=== PATIENT | male | born 2000 | race Caucasian/White ===

== ENCOUNTER 2020-10-31 00:19 | Inpatient (IN) | payer OTHER, MEDICAID, SELFPAY ==
[2020-10-31] VITALS (14 sets, daily range): BP systolic 99–140; BP diastolic 61–93; PULSE 18–82; RESP 14–24; TEMP 36.6–37.2; O2SAT 99; BMI 19.1
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
--- NOTE | 2020-10-31 02:41 | PC.NURSE ---
late entry: : IM meds pulled earlier by Arslan ANGELES, given to this keno writer/runner for restraint purposes, then meds entrusted to flori angeles who is 1;1 at bedside with patient.
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
[2020-10-31] MEDS: LORazepam 2 MG/ML VIAL IM (03:50)
[2020-10-31] MEDS: Haloperidol Lactate 5 MG/ML VIAL IM (03:50)
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
--- NOTE | 2020-10-31 06:53 | PC.NURSE ---
pt agitated and restrained as ordered at 0058 pt denies si or hi at this time but does reports hearing voices demon to hurt himself but denies si.
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
--- NOTE | 2020-10-31 09:31 | PC.NURSE ---
PT CALM,COOPERATIVE. BHN SPEAKING WITH PT AT THIS TIME
--- NOTE | 2020-10-31 10:58 | PC.NURSE ---
COVID swab completed. Patient cooperative and calm at this time.
[2020-10-31 13:21] LABS: Influenza A PCR NEGATIVE (Negative); Influenza B PCR NEGATIVE (Negative); Resp Syncy Virus RNA Qual PCR NEGATIVE (Negative); SARS COV2 PCR INHOUSE NEGATIVE (Negative)
[2020-10-31 16:06] LABS: MANUAL DIFF FLAG NO
[2020-10-31 16:07] LABS: Basophils Percent Auto 0.3 % (0-2); Eosinophils Absolute Auto 0.8 X10*3/uL (0.0-0.4); Eosinophils Percent Auto 5.3 % (0-4); Hematocrit 43.1 % (42-52); Imm Gran Abs Auto 0.05 X10*3/uL (0.00-0.03); Imm Gran Pct Auto 0.3 % (0.0-0.4); Lymphocytes Absolute Auto 2.2 X10*3/uL (1.2-4.9); Lymphocytes Percent Auto 14.6 % (20-40); Mean Corpuscular HGB Conc 34.8 g/dl (31.0-36.0); Mean Corpuscular Hemoglobin 30.5 pg (27.0-33.0); Mean Corpuscular Volume 87.6 fL (80-98); Mean Platelet Volume 10.9 fL (9.4-12.4); Monocytes Absolute Auto 0.8 X10*3/uL (0.1-1.2); Neutrophils Absolute Auto 11.2 X10*3/uL (2.0-8.3); Neutrophils Percent Auto 74.5 % (45-73); Platelet Count 307 X10*3/uL (160-400); Red Blood Count 4.92 X10*6/uL (4.60-5.80); Red Cell Distribution Width 12.4 % (11.0-16.0)
[2020-10-31 16:12] LABS: Glucose Urine UA NEG (NEG); Leukocyte Esterase Urine NEG (NEG); Nitrite Urine NEG (NEG); Specific Gravity - Urine >= 1.030 (1.005-1.025); UACC Culture Trigger NO; Urine Blood NEG (NEG); Urine Ketones 40 MG/DL (NEG); Urine Protein 1+ MG/DL (NEG-TRACE)
[2020-10-31 16:13] LABS: Appearance Urine HAZY; Color Urine YELLOW
[2020-10-31 16:20] LABS: Mucus Urine 4+ /LPF; RBC Urine 0 /HPF (0); Sperm Urine NOTED; Squamous Epithelial Cell Urine 1+ /LPF; WBC Urine 0 /HPF (0-4)
[2020-10-31] MEDS: risperiDONE 2 MG TABLET PO ×2 (16:33→20:26)
[2020-10-31 16:38] LABS: Ethanol < 10 mg/dL
[2020-10-31 16:41] LABS: Alanine Aminotransferase 20 U/L (0-40); Albumin Level 4.6 g/dL (3.5-5.0); Alkaline Phosphatase 68 U/L (39-117); Anion Gap 15 (12-20); Aspartate Amino Transferase 31 U/L (5-37); Bilirubin Direct 0.7 mg/dL (0.0-0.5); Bilirubin Total 2.1 mg/dL (0.0-1.0); Blood Urea Nitrogen 17 mg/dL (9-16); Calcium 9.8 mg/dL (8.4-10.2); Carbon Dioxide 25 mmol/L (22-29); Chloride 102 mmol/L (96-108); Creatinine Clr Calc Pharmacy 82.8; Estimated Glomerular Filt Rate > 60; Glucose Random 108 mg/dL (60-115); Magnesium 2.3 mg/dL (1.6-2.6); Potassium 3.7 mmol/L (3.3-5.1); Sodium 138 mmol/L (135-145); Total Protein 7.6 g/dL (6.5-8.0)
[2020-10-31 16:50] LABS: Amphetamine Screen Urine Not Detected (Not Detect); Barbiturates, Urine Not Detected (Not Detect); Benzodiazepines Screen Urine Not Detected (Not Detect); Cannabinoid Screen Urine POSITIVE (Not Detect); Cocaine Screen Urine Not Detected (Not Detect); Opiate Screen Urine Not Detected (Not Detect); Phencyclidine Screen Urine Not Detected (Not Detect)
--- NOTE | 2020-10-31 20:24 | MHC.MBSS ---
Patient refusing food. Patient did not eat breakfast, lunch or dinner.
[2020-10-31] MEDS: LORazepam 1 MG TABLET 2 MG PO (21:58)
[2020-11-01 06:00] VITALS: RESP 16
[2020-11-01] MEDS: risperiDONE 2 MG TABLET PO ×2 (08:29→22:10)
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
[2020-11-01 15:16] VITALS: BP 123/60; PULSE 80; RESP 15
[2020-11-01] MEDS: LORazepam 1 MG TABLET 2 MG PO (20:39)
[2020-11-01] MEDS: HaloperidoL 5 MG TABLET PO (20:39)
[2020-11-01] MEDS: diphenhydrAMINE HCL 25 MG TABLET 50 MG PO (20:39)
[2020-11-02 06:00] VITALS: RESP 16
[2020-11-02 08:00] VITALS: BP 115/77; PULSE 87
[2020-11-02] MEDS: risperiDONE 2 MG TABLET PO ×2 (08:52→20:54)
--- NOTE | 2020-11-02 12:40 | PC.NURSE ---
pt asking to be reevaluated, called [facility] and care team.
[2020-11-02] MEDS: LORazepam 1 MG TABLET 2 MG PO (14:47)
[2020-11-02] MEDS: diphenhydrAMINE HCL 25 MG TABLET 50 MG PO (20:57)
[2020-11-02 20:58] VITALS: BP 126/74; PULSE 67; RESP 16; TEMP 36.6; O2SAT 98
[2020-11-03 06:24] VITALS: RESP 18; O2SAT 99
[2020-11-03 07:36] VITALS: BP 104/56; PULSE 72; RESP 16; TEMP 36.7; O2SAT 98
[2020-11-03] MEDS: risperiDONE 2 MG TABLET PO ×2 (08:28→20:58)
[2020-11-03 14:41] VITALS: BP 111/64; PULSE 75; RESP 16; TEMP 36.6; O2SAT 98
--- NOTE | 2020-11-03 15:26 | PC.NURSE ---
Pt resting in bed quietly. Staff at bedside for obs and family at bedside as well. Pt is calm and cooperative.
[2020-11-03] MEDS: LORazepam 1 MG TABLET 2 MG PO (20:30)
[2020-11-03] MEDS: HaloperidoL 5 MG TABLET PO (20:30)
[2020-11-03] MEDS: diphenhydrAMINE HCL 25 MG TABLET 50 MG PO (20:31)
[2020-11-04 06:06] VITALS: BP 108/61; PULSE 77; RESP 16; TEMP 37.1; O2SAT 99
[2020-11-04] MEDS: risperiDONE 2 MG TABLET PO ×2 (08:42→20:10)
[2020-11-04 08:45] VITALS: BP 100/57; PULSE 76; RESP 16; TEMP 36.7; O2SAT 97
[2020-11-04 15:29] VITALS: BP 103/48; PULSE 70; RESP 17; O2SAT 98
[2020-11-04 16:41] VITALS: BP 119/73; PULSE 70; TEMP 36.3
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
[2020-11-04] MEDS: diphenhydrAMINE HCL 25 MG TABLET 50 MG PO (20:09)
[2020-11-04] MEDS: HaloperidoL 5 MG TABLET PO (20:09)
[2020-11-04] MEDS: LORazepam 1 MG TABLET 2 MG PO (20:09)
[2020-11-04] MEDS: traZODone HCL 50 MG TABLET PO (20:10)
[2020-11-05 05:51] VITALS: BP 115/59; PULSE 88; RESP 18; TEMP 35.4
[2020-11-05 08:22] LABS: MANUAL DIFF FLAG NO
[2020-11-05] MEDS: risperiDONE 2 MG TABLET PO ×2 (08:30→20:17)
[2020-11-05 08:40] LABS: Basophils Absolute Auto 0.1 X10*3/uL (0.0-0.2); Basophils Percent Auto 0.6 % (0-2); Eosinophils Absolute Auto 1.6 X10*3/uL (0.0-0.4); Eosinophils Percent Auto 16.7 % (0-4); Hematocrit 41.4 % (42-52); Hemoglobin 14.4 g/dl (14.0-18.0); Imm Gran Abs Auto 0.03 X10*3/uL (0.00-0.03); Imm Gran Pct Auto 0.3 % (0.0-0.4); Lymphocytes Absolute Auto 2.6 X10*3/uL (1.2-4.9); Lymphocytes Percent Auto 27.1 % (20-40); Mean Corpuscular HGB Conc 34.8 g/dl (31.0-36.0); Mean Corpuscular Hemoglobin 30.7 pg (27.0-33.0); Mean Corpuscular Volume 88.3 fL (80-98); Mean Platelet Volume 11.1 fL (9.4-12.4); Monocytes Absolute Auto 0.6 X10*3/uL (0.1-1.2); Monocytes Percent Auto 6.5 % (2-11); Neutrophils Absolute Auto 4.7 X10*3/uL (2.0-8.3); Neutrophils Percent Auto 48.8 % (45-73); Platelet Count 295 X10*3/uL (160-400); Red Blood Count 4.69 X10*6/uL (4.60-5.80); White Blood Count 9.7 X10*3/uL (4.8-10.8)
[2020-11-05 09:03] LABS: Estimated Average Glucose 108 mg/dL; Hemoglobin A1c % 5.4 %
[2020-11-05 09:09] LABS: Alanine Aminotransferase 13 U/L (0-40); Albumin Level 4.5 g/dL (3.5-5.0); Alkaline Phosphatase 66 U/L (39-117); Aspartate Amino Transferase 15 U/L (5-37); Bilirubin Direct 0.2 mg/dL (0.0-0.5); Bilirubin Total 0.6 mg/dL (0.0-1.0); Cholesterol 145 mg/dL; HDL Cholesterol 45 mg/dL; LDL Cholesterol Calculated 89 mg/dl; Total Protein 7.2 g/dL (6.5-8.0); Triglycerides 59 mg/dL
[2020-11-05 17:20] VITALS: BP 116/72; PULSE 87; RESP 16; TEMP 36.9; O2SAT 97
[2020-11-05] MEDS: diphenhydrAMINE HCL 25 MG TABLET 50 MG PO (20:17)
[2020-11-05] MEDS: HaloperidoL 5 MG TABLET PO (20:17)
[2020-11-05] MEDS: traZODone HCL 50 MG TABLET PO (21:50)
[2020-11-06 06:00] VITALS: BP 112/75; PULSE 65; RESP 16; TEMP 36.4; O2SAT 98
[2020-11-06] MEDS: Ibuprofen 600 MG TABLET PO ×2 (06:37→19:59)
[2020-11-06 07:00] VITALS: BMI 19.4
[2020-11-06] MEDS: risperiDONE 2 MG TABLET PO ×2 (08:57→19:59)
[2020-11-06] MEDS: diphenhydrAMINE HCL 25 MG TABLET 50 MG PO (10:33)
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
[2020-11-06] MEDS: Benztropine Mesylate 2 MG/2 ML VIAL 1 MG IM (11:05)
[2020-11-06] MEDS: Ketorolac Tromethamine 30 MG/ML VIAL IM (11:37)
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
[2020-11-06 12:08] LABS: Glucose Urine UA NEG (NEG); Leukocyte Esterase Urine NEG (NEG); Nitrite Urine NEG (NEG); Urine Blood NEG (NEG); Urine Ketones NEG (NEG); Urine Protein NEG (NEG-TRACE)
[2020-11-06 12:09] LABS: Appearance Urine CLEAR; Color Urine YELLOW
[2020-11-06 12:14] LABS: RBC Urine 0 /HPF (0); Squamous Epithelial Cell Urine TRACE /LPF; WBC Urine 0-2 /HPF (0-4)
--- NOTE | 2020-11-06 14:05 | P.CONIM_ITS ---
History of Present Illness Data of Consult Service Date: 11/06/20 <Saloni Roche NP - Last Filed: 11/06/20 14:18> Requesting physician: Alexandre Novak <Saloni Roche NP - Last Filed: 11/06/20 14:18> Primary Care Provider: Unknown Physician <Saloni Roche NP - Last Filed: 11/06/20 14:18> HPI Reason for consult: medical consultation <Saloni Roche NP - Last Filed: 11/06/20 14:18> 20-year-old man admitted to for behavioral health. He had complaints of back pain and there was concern for kidney stones. Patient denied any fever, chills, nausea, vomiting, diarrhea, dysuria. His vital signs are stable he is not noted to have any fever, last labs did not show any leukocytosis. During the interview patient reported more mid back pain, stated that I works out alot . Patient has been treated with ibuprofen and received a dose of Toradol today with good effect. <Saloni Roche NP - Last Filed: 11/06/20 14:18> Review of Systems Review of Systems: Denies any recent fever chills or decrease in appetite respiratory denies any shortness of breath coverage production cardiovascular Denies chest pain gastrointestinal denies any dysphagia abdominal pain nausea vomiting or diarrhea genitourinary denies any dysuria frequency or hematuria musculoskeletal see HPI neuropsych denies any weakness or seizures all other systems reviewed are negative <Saloni Roche NP - Last Filed: 11/06/20 14:18> [facility] Medical History: Medical History Schizophrenia <Saloni Roche NP - Last Filed: 11/06/20 14:18> Pertinent family history: no cardiac disease <Saloni Roche NP - Last Filed: 11/06/20 14:18> Social History: Social History Household Members: Family Housing: House Do you presently have visiting nurse or other home services: No Alcohol intake: never Patient Tobacco Use Status: Never used Tobacco Tobacco use type: Cigarette e-Cigarette/Vaping Use: Former Use Second Hand Smoke Exposure: No Use of substances other than those prescribed or required for medical reasons: No Substance Use Type: Marijuana Advance Directives: Yes Advance Directives Information Provided: Yes Advance Directives on File: No service: Yes ([employer]) Sexual orientation: Was not discussed and is unknown <Saloni Roche NP - Last Filed: 11/06/20 14:18> Meds Allergies/Adverse reactions: Allergies Allergy/AdvReac Type Severity Reaction Status Date / Time bee pollen [bee stings] Allergy Difficulty Verified 11/15/20 10:14 Breathing <Saloni Roche NP - Last Filed: 11/06/20 14:18> Active Medications: Current Medications Generic Name Dose Route Start Last Admin Trade Name Freq PRN Reason Stop Dose Admin Al Hydroxide/Mg Hydroxide 30 ml 11/04/20 15:39 Magnesium Hydrox/Alum Hydrox 30 Ml Oral.Susp PO Q6H PRN Heartburn/Nausea Diphenhydramine HCl 50 mg 11/04/20 15:39 11/06/20 10:33 Diphenhydramine Hcl 25 Mg Tablet PO 50 mg Q4H PRN Administration agitation Haloperidol 5 mg 11/04/20 15:39 11/05/20 20:17 Haloperidol 5 Mg Tablet PO 5 mg Q4H PRN Administration agitation Lorazepam 2 mg 11/04/20 15:39 11/04/20 20:09 Lorazepam 1 Mg Tablet PO 2 mg Q4H PRN Administration agitation Magnesium Hydroxide 30 ml 11/04/20 15:39 Milk Of Magnesia 30 Ml Oral.Susp PO DAILY PRN Constipation Nicotine 21 mg 11/04/20 15:39 Nicotine 21 Mg Patch.Td24 TRANSDERMA DAILY PRN smoking cessation Nicotine Polacrilex 4 mg 11/04/20 15:39 Nicotine Polacrilex 2 Mg Gum BUCCAL Q2H PRN Nicotine Cravings Pharmacy Consult 1 each 11/04/20 08:44 Consult Rx Perform Med Rec MISCELLANE ONCE PRN Consult order Risperidone 2 mg 10/31/20 21:00 11/06/20 08:57 Risperidone 2 Mg Tablet PO 2 mg BID REGINE Administration Trazodone HCl 50 mg 11/04/20 15:39 11/05/20 21:50 Trazodone Hcl 50 Mg Tablet PO 50 mg BEDTIME PRN Administration Insomnia <Saloni Roche NP - Last Filed: 11/06/20 14:18> Physical Exam Vital Signs and Narrative: Vital Signs: Last Vital Signs Temp 97.6 F 11/06/20 06:00 Pulse 65 11/06/20 06:00 Resp 16 11/06/20 06:00 BP 112/75 11/06/20 06:00 Pulse Ox 98 11/06/20 06:00 Body Mass Index 19.4 <Saloni Roche NP - Last Filed: 11/06/20 14:18> Appearing in no acute distress head is normocephalic atraumatic eyes pupils are PERRLA sclera is anicteric mouth throat mucous membranes are intact and moist neck is supple no lymphadenopathy, no JVD noted lung sounds are clear to auscultation heart regular rate rhythm, clear S1, S2 positive bowel sounds, abdomen is soft, nontender neuro patient is alert x3, no focal deficits MSK <Saloni Roche NP - Last Filed: 11/06/20 14:18> Skin: Full body images: 1. thoracic muscular pain 2. <Saloni Roche NP - Last Filed: 11/06/20 14:18> Results Labs CBC and Chem 7: : 11/05/20 08:04 10/31/20 15:59 <Saloni Roche NP - Last Filed: 11/06/20 14:18> Labs: Laboratory Results - last 24 hr 11/06/20 11:50 Urine Color YELLOW Urine Appearance CLEAR Urine pH 7.0 Ur Specific [place] 1.010 Urine Protein NEG Urine Glucose (UA) NEG Urine Ketones NEG Urine Blood NEG Urine Nitrite NEG Ur Leukocyte Esterase NEG Urine RBC 0 Urine WBC 0-2 Ur Squamous Epith Cells TRACE Urine Bacteria NONE <Saloni Roche NP - Last Filed: 11/06/20 14:18> Assessment and Plan (1) Back pain: Status: Resolved <Saloni Roche NP - Last Filed: 11/06/20 14:18> 20-year-old admitted to for [facility]. He had complaints of back pain which has been treated with ibuprofen. There was concern for renal stones due to flank pain. During the interview and examination patient actually did not have flank pain but more mid back thoracic muscle pain. Did report that he works out and this may be related to the pain he is having. Musculoskeletal pain Continue ibuprofen Lidocaine patch as needed Mental health As per psychiatric team <Saloni Roche NP - Last Filed: 11/06/20 14:18>
[2020-11-06 18:00] VITALS: BP 120/67; PULSE 72; TEMP 37.1
[2020-11-06] MEDS: traZODone HCL 50 MG TABLET PO ×2 (19:59→21:40)
[2020-11-06] MEDS: LORazepam 1 MG TABLET 2 MG PO (21:40)
[2020-11-07 06:00] VITALS: BP 113/65; PULSE 97; RESP 18; TEMP 35.5; O2SAT 97
[2020-11-07] MEDS: risperiDONE 2 MG TABLET PO (08:40)
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
== END 2020-11-07 12:53 | disposition home or self-care (01) | DRG 750 ==
LOC: HO.ED 03:34 → HO.PM5 11-04 15:33
PROVIDERS: Physician Assistant; Admitting Provider Psychiatry & Neurology Psychiatry; Emergency Provider Emergency Medicine; Visit Provider Psychiatry & Neurology Psychiatry
DX: F20.0 Paranoid schizophrenia (principal); R45.851 Suicidal ideations; Z79.899 Other long term (current) drug therapy
CPT/HCPCS: 0241U; 36415; 80048; 80061; 80076; 80307; 81001; 82077; 83036; 83735; 85025; 99285; J0515; J1885; J2060; Q0163

== ENCOUNTER 2020-11-15 09:30 | Emergency (ER) | payer MEDICAID, SELFPAY ==
--- NOTE | ~2020-11-15 | XR_ITS ---
EXAMINATION: XR CHEST CLINICAL INFORMATION: Chest pain. COMPARISON: None TECHNIQUE: 2 views of the chest were obtained. FINDINGS: No significant abnormality is noted involving the heart, lungs, mediastinum, bony thorax or soft tissues. XR/XR chest 2V IMPRESSION: Unremarkable chest examination.
[2020-11-15 10:12] VITALS: BP 122/62; PULSE 68; RESP 18; TEMP 36.6; O2SAT 98
[2020-11-15] MEDS: Ibuprofen 600 MG TABLET PO (11:22)
[2020-11-15 11:35] VITALS: RESP 17
--- NOTE | 2020-11-25 08:32 | ED_ITS ---
HPI - Back Pain/Injury General Chief Complaint: Back Pain/Injury Stated Complaint: back pain Time Seen by Provider: 11/15/20 10:48 History of Present Illness HPI Narrative: Patient complains of right-sided back pain without injury that is worse with movement, it does hurt when he takes a deep breath but there is no shortness of breath no chest pain, there is no numbness weakness or tingling no changes to bowel or bladder no fever no cough Related Data Previous Rx's Medication Instructions Recorded risperidone 2 mg tablet 2 mg PO BID 30 Days #60 tab 11/07/20 acetaminophen 500 mg tablet 1,000 mg PO QID PRN #30 tab 11/15/20 cyclobenzaprine 5 mg tablet 5 mg PO TID PRN #10 tab 11/15/20 ibuprofen 600 mg tablet 600 mg PO Q6H PRN #20 tab 11/15/20 Allergies Allergy/AdvReac Type Severity Reaction Status Date / Time bee pollen [bee stings] Allergy Difficulty Verified 11/15/20 10:14 Breathing Review of Systems Review of Systems: Positive for back pain Negatives are no fever no chills no dizziness no weakness no fainting no feeling faint no headache no neck pain no chest pain no shortness of breath no cough no abdominal pain no nausea vomiting or diarrhea, no dysuria no incontinence no changes to bowel or bladder no numbness weakness or tingling Yes all other systems are reviewed and are negative [facility] Past Medical History Source: nursing notes reviewed Medical History (Updated 11/16/20 @ 00:02 by Regina Aguilar) Schizophrenia Social History Social History Household Members: Family Housing: House Do you presently have visiting nurse or other home services: No Patient Tobacco Use Status: Never used Tobacco Tobacco use type: Cigarette e-Cigarette/Vaping Use: Former Use Second Hand Smoke Exposure: No Substance Use Type: Marijuana Advance Directives: No Advance Directives Information Provided: No service: Yes ([employer]) Sexual orientation: Was not discussed and is unknown Physical Exam Vital Signs: Vital Signs: Last Vital Signs Temp 97.8 F 11/15/20 10:12 Pulse 68 11/15/20 10:12 Resp 17 11/15/20 11:35 BP 122/62 11/15/20 10:12 Pulse Ox 98 08/21/21 10:12 Body Mass Index 20.0 General appearance no acute distress Head is normocephalic atraumatic Neck is supple nontender Respiratory no acute distress The chest is clear to auscultation bilateral with full symmetric equal breath sounds no chest wall tenderness The back had right mid upper tenderness below the scapula and lateral to the spine, there is no redness or rash on the skin, pain is reproduced with movement and deep breath The abdomen is soft and nontender Extremities full range of motion x4 Neuro no focal motor sensory deficits Course Course Course Narrative: Chest x-ray was normal, patient had no difficulty breathing, pain was easily reproducible and is most likely a muscle strain in the subscapular area, patient is well-appearing and is discharged Discharge Plan Discharge Clinical Impression: Back pain Patient Disposition: Home, Self-Care Additional Instructions: No sign of any dangerous condition now Follow with primary doctor as needed Return to the ER any time any worse condition or any concerns Prescriptions: New acetaminophen 500 mg tablet 1,000 mg PO QID PRN (Reason: pain) Qty: 30 RF: 0 cyclobenzaprine 5 mg tablet 5 mg PO TID PRN (Reason: muscle spasm) Qty: 10 RF: 0 ibuprofen 600 mg tablet 600 mg PO Q6H PRN (Reason: pain) Qty: 20 RF: 0 No Action risperidone 2 mg Tablet 2 mg PO BID 30 Days Qty: 60 RF: 0 Stand Alone Forms: Work/School Release Interventions: ED Discharge Assessment Last Done: 11/15/20 11:36 Discharge Date/Time: 11/15/20 11:36
== END 2020-11-15 11:36 | disposition home or self-care (01) ==
PROVIDERS: Emergency Provider Internal Medicine
DX: M54.9 Dorsalgia, unspecified (principal)
CPT/HCPCS: 71046; 99283

== ENCOUNTER 2020-11-30 08:05 | Emergency (ER) | payer MEDICAID, SELFPAY ==
[2020-11-30 08:08] VITALS: BP 107/57; PULSE 59; RESP 16; TEMP 36.3; O2SAT 99
--- NOTE | 2020-11-30 08:29 | ED.GENADULT ---
HPI - General Adult General Chief complaint: General Medical Stated complaint: BODY NUMB Time Seen by Provider: 11/30/20 08:19 Source: patient and old records reviewed Mode of arrival: ambulatory Limitations: no limitations History of Present Illness MD complaint: body pain and feeling weakness Onset (ago): week(s) (2) Location: back, upper extremity and lower extremity Radiation: non-radiation Severity: moderate Quality: aching and constant Pain Consistency: constant Relieving factors: none Exacerbating factors: none Associated symptoms: malaise and weakness (overall diffuse) Treatments prior to arrival: NSAID Related Data Previous Rx's Medication Instructions Recorded risperidone 2 mg tablet 2 mg PO BID 30 Days #60 tab 11/07/20 acetaminophen 500 mg tablet 1,000 mg PO QID PRN #30 tab 11/15/20 cyclobenzaprine 5 mg tablet 5 mg PO TID PRN #10 tab 11/15/20 ibuprofen 600 mg tablet 600 mg PO Q6H PRN #20 tab 11/15/20 Allergies Allergy/AdvReac Type Severity Reaction Status Date / Time bee pollen [bee stings] Allergy Difficulty Verified 11/15/20 10:14 Breathing Review of Systems Review of Systems: Constitutional : No Weight loss, No Fever, No Chills, pos Fatigue, pos Malaise ENT/Mouth : No sore throat, No Rhinorrhea Eyes: No Eye Pain, No Swelling, No Redness Cardiovascular : No Chest Pain, No SOB, No Dyspnea on Exertion, No Orthopnea, No Edema, No Palpitations Respiratory : No Cough, No Sputum, No Wheezing Gastrointestinal : No Nausea, No Vomiting, No Diarrhea, No Constipation, No abdominal Pain, No Hematochezia, No Melena Genitourinary : No Dysuria, No Urinary Frequency, No Hematuria, Musculoskeletal : No joint pain, pos Myalgias, No Joint Swelling Skin : No Skin Lesions, No rash Neuro : pos Weakness, No Numbness, No Dizziness, No Headache Psych : No Anxiety/Panic, No Depression Heme/Lymph: No Bruising, No Bleeding,No Lymphadenopathy Endocrine : No Polyuria, No Polydipsia All other systems reviewed and are negative [facility] Past Medical History Attestation statement: The following information was validated with the patient. Medical History Schizophrenia Social History Social History Household Members: Family Housing: House Do you presently have visiting nurse or other home services: No Alcohol intake: never Patient Tobacco Use Status: Never used Tobacco Tobacco use type: Cigarette e-Cigarette/Vaping Use: Former Use Second Hand Smoke Exposure: No Use of substances other than those prescribed or required for medical reasons: No Substance Use Type: Marijuana Advance Directives: Yes Advance Directives Information Provided: Yes Advance Directives on File: No service: Yes ([employer]) Sexual orientation: Was not discussed and is unknown Physical Exam Vital Signs: Vital Signs: Last Vital Signs Temp 97.8 F 11/30/20 09:22 Pulse 55 11/30/20 09:22 Resp 18 11/30/20 09:22 BP 105/62 11/30/20 09:22 Pulse Ox 100 11/30/20 09:22 Body Mass Index 20.0 Appearance: Alert. Oriented X3. No acute distress. Eyes: Pupils equal, round and reactive to light. ENT: Pharynx normal. Neck: Normal inspection. Neck supple. CVS: Normal heart rate and rhythm. Pulses normal. Respiratory: No respiratory distress. Breath sounds normal. Abdomen: Soft and nontender. Skin: Skin warm and dry. Normal skin color. Normal skin turgor. Extremities: No lower extremity edema. No calf ttp Neuro: Oriented X 3. No motor deficit. No sensory deficit. CN2-12 intact. SILT throughout, 5/5 diffuse strength, no clonus Psych: denies SI/HI. Flat affect Course Course Course Narrative: no acute findings, will give work note and instruct him to follow up with PCP Medical Decision Making MDM Narrative Medical decision making narrative: 20 yo male with schizophrenia comes in with 2 weeks of malaise and body aches - at this time labs - CPK, lyme, TSH ordered. He has no deficits, he denies SI/HI. He is calm. Possible reaction to medications though I do not appreciate any weakness and he has good strength and strong gait. Lab Data Result diagrams: 11/30/20 08:53 11/30/20 08:53 Labs: Lab Results 11/30/20 11/30/20 11/30/20 Range/Units 08:53 08:53 08:53 WBC 11.6 H (4.8-10.8) X10*3/uL RBC 4.20 L (4.60-5.80) X10*6/uL Hgb 12.7 L (14.0-18.0) g/dl Hct 37.3 L (42-52) % MCV 88.8 (80-98) fL MCH 30.2 (27.0-33.0) pg MCHC 34.0 (31.0-36.0) g/dl RDW 11.9 (11.0-16.0) % Plt Count 276 (160-400) X10*3/uL MPV 10.6 (9.4-12.4) fL Immature Gran % (Auto) 0.5 H (0.0-0.4) % Neut % (Auto) 64.6 (45-73) % Lymph % (Auto) 18.4 L (20-40) % [place] % (Auto) 4.8 (2-11) % Eos % (Auto) 11.3 H (0-4) % Baso % (Auto) 0.4 (0-2) % Lymph # (Auto) 2.1 (1.2-4.9) X10*3/uL [place] # (Auto) 0.6 (0.1-1.2) X10*3/uL Eos # (Auto) 1.3 H (0.0-0.4) X10*3/uL Baso # (Auto) 0.1 (0.0-0.2) X10*3/uL Abs Immat Gran (auto) 0.06 H (0.00-0.03) X10*3/uL Absolute Neuts (auto) 7.5 (2.0-8.3) X10*3/uL Absolute Nucleated RBC 0.000 (0.0-0.012) X10*3/uL Nucleated RBC % (auto) 0.0 (0.0-0.2) /100WBC Sodium 141 (135-145) mmol/L Potassium 4.5 D (3.3-5.1) mmol/L Chloride 105 (96-108) mmol/L Carbon Dioxide 27 (22-29) mmol/L Anion Gap 14 (12-20) BUN 19 H (9-16) mg/dL Creatinine 0.83 (0.5-1.4) mg/dL Estim Creat Clear Calc 108.3 Estimated GFR > 60 Random Glucose 92 (60-115) mg/dL Calcium 9.5 (8.4-10.2) mg/dL Magnesium 1.9 (1.6-2.6) mg/dL Total Bilirubin 0.4 (0.0-1.0) mg/dL Direct Bilirubin 0.2 (0.0-0.5) mg/dL AST 12 (5-37) U/L ALT 8 (0-40) U/L Alkaline Phosphatase 51 D (39-117) U/L Total Creatine Kinase 84 (38-174) U/L C-Reactive Protein 0.02 (< or = 0.50) mg/dL Total Protein 6.4 L (6.5-8.0) g/dL Albumin 4.1 (3.5-5.0) g/dL TSH (0.32-4.0) uIU/mL Urine Color Urine Appearance Urine pH (5.0-8.0) Ur Specific [place] (1.005-1.025) Urine Protein (NEG-TRACE) MG/DL Urine Glucose (UA) (NEG) MG/DL Urine Ketones (NEG) MG/DL Urine Blood (NEG) Urine Nitrite (NEG) Ur Leukocyte Esterase (NEG) COVID-19 (RICA) Negative (Negative) COVID-19 Clin Com See Note 11/30/20 11/30/20 Range/Units 08:53 09:58 WBC (4.8-10.8) X10*3/uL RBC (4.60-5.80) X10*6/uL Hgb (14.0-18.0) g/dl Hct (42-52) % MCV (80-98) fL MCH (27.0-33.0) pg MCHC (31.0-36.0) g/dl RDW (11.0-16.0) % Plt Count (160-400) X10*3/uL MPV (9.4-12.4) fL Immature Gran % (Auto) (0.0-0.4) % Neut % (Auto) (45-73) % Lymph % (Auto) (20-40) % [place] % (Auto) (2-11) % Eos % (Auto) (0-4) % Baso % (Auto) (0-2) % Lymph # (Auto) (1.2-4.9) X10*3/uL [place] # (Auto) (0.1-1.2) X10*3/uL Eos # (Auto) (0.0-0.4) X10*3/uL Baso # (Auto) (0.0-0.2) X10*3/uL Abs Immat Gran (auto) (0.00-0.03) X10*3/uL Absolute Neuts (auto) (2.0-8.3) X10*3/uL Absolute Nucleated RBC (0.0-0.012) X10*3/uL Nucleated RBC % (auto) (0.0-0.2) /100WBC Sodium (135-145) mmol/L Potassium (3.3-5.1) mmol/L Chloride (96-108) mmol/L Carbon Dioxide (22-29) mmol/L Anion Gap (12-20) BUN (9-16) mg/dL Creatinine (0.5-1.4) mg/dL Estim Creat Clear Calc Estimated GFR Random Glucose (60-115) mg/dL Calcium (8.4-10.2) mg/dL Magnesium (1.6-2.6) mg/dL Total Bilirubin (0.0-1.0) mg/dL Direct Bilirubin (0.0-0.5) mg/dL AST (5-37) U/L ALT (0-40) U/L Alkaline Phosphatase (39-117) U/L Total Creatine Kinase (38-174) U/L C-Reactive Protein (< or = 0.50) mg/dL Total Protein (6.5-8.0) g/dL Albumin (3.5-5.0) g/dL TSH 0.86 (0.32-4.0) uIU/mL Urine Color STRAW Urine Appearance CLEAR Urine pH 6.5 (5.0-8.0) Ur Specific [place] <= 1.005 (1.005-1.025) Urine Protein NEG (NEG-TRACE) MG/DL Urine Glucose (UA) NEG (NEG) MG/DL Urine Ketones NEG (NEG) MG/DL Urine Blood NEG (NEG) Urine Nitrite NEG (NEG) Ur Leukocyte Esterase NEG (NEG) COVID-19 (RICA) (Negative) COVID-19 Clin Com Discharge Plan Discharge Clinical Impression: Myalgia Patient Disposition: Home, Self-Care Instructions: Musculoskeletal Pain (ED) Additional Instructions: return to ED for any worsening symptoms or concerns your blood work was normal a lyme test is pending if positive we will call you Prescriptions: No Action risperidone 2 mg Tablet 2 mg PO BID 30 Days Qty: 60 RF: 0 acetaminophen 500 mg tablet 1,000 mg PO QID PRN (Reason: pain) Qty: 30 RF: 0 cyclobenzaprine 5 mg tablet 5 mg PO TID PRN (Reason: muscle spasm) Qty: 10 RF: 0 ibuprofen 600 mg tablet 600 mg PO Q6H PRN (Reason: pain) Qty: 20 RF: 0 Referrals: Physician,None [Primary Care Provider] - 2 days (PCP next week if not better) Stand Alone Forms: Work/School Release
[2020-11-30 09:04] LABS: MANUAL DIFF FLAG NO
[2020-11-30 09:05] LABS: Basophils Absolute Auto 0.1 X10*3/uL (0.0-0.2); Basophils Percent Auto 0.4 % (0-2); Eosinophils Absolute Auto 1.3 X10*3/uL (0.0-0.4); Eosinophils Percent Auto 11.3 % (0-4); Hematocrit 37.3 % (42-52); Hemoglobin 12.7 g/dl (14.0-18.0); Imm Gran Abs Auto 0.06 X10*3/uL (0.00-0.03); Imm Gran Pct Auto 0.5 % (0.0-0.4); Lymphocytes Absolute Auto 2.1 X10*3/uL (1.2-4.9); Lymphocytes Percent Auto 18.4 % (20-40); Mean Corpuscular Hemoglobin 30.2 pg (27.0-33.0); Mean Corpuscular Volume 88.8 fL (80-98); Mean Platelet Volume 10.6 fL (9.4-12.4); Monocytes Absolute Auto 0.6 X10*3/uL (0.1-1.2); Monocytes Percent Auto 4.8 % (2-11); Neutrophils Absolute Auto 7.5 X10*3/uL (2.0-8.3); Neutrophils Percent Auto 64.6 % (45-73); Platelet Count 276 X10*3/uL (160-400); Red Cell Distribution Width 11.9 % (11.0-16.0); White Blood Count 11.6 X10*3/uL (4.8-10.8)
--- NOTE | 2020-11-30 09:21 | PC.NURSE ---
describes 2 weeks of general weakness. denies headaches. weird pains no covid vaccine.
[2020-11-30 09:22] VITALS: BP 105/62; PULSE 55; RESP 18; TEMP 36.6; O2SAT 100
[2020-11-30 09:23] LABS: IDNOW Serial# 9DD0AD1C
[2020-11-30 09:24] LABS: COVID-19 Test Negative (Negative)
--- NOTE | 2020-11-30 09:25 | PC.NURSE ---
up with steady gait
[2020-11-30 09:29] LABS: Alanine Aminotransferase 8 U/L (0-40); Albumin Level 4.1 g/dL (3.5-5.0); Alkaline Phosphatase 51 U/L (39-117); Anion Gap 14 (12-20); Aspartate Amino Transferase 12 U/L (5-37); Bilirubin Direct 0.2 mg/dL (0.0-0.5); Bilirubin Total 0.4 mg/dL (0.0-1.0); Blood Urea Nitrogen 19 mg/dL (9-16); C Reactive Protein 0.02 mg/dL (< or = 0.50); Calcium 9.5 mg/dL (8.4-10.2); Carbon Dioxide 27 mmol/L (22-29); Chloride 105 mmol/L (96-108); Creatinine Clr Calc Pharmacy 108.3; Estimated Glomerular Filt Rate > 60; Glucose Random 92 mg/dL (60-115); Magnesium 1.9 mg/dL (1.6-2.6); Potassium 4.5 mmol/L (3.3-5.1); Sodium 141 mmol/L (135-145); Total Protein 6.4 g/dL (6.5-8.0)
[2020-11-30 09:45] LABS: TSH reflex Free T4 0.86 uIU/mL (0.32-4.0)
[2020-11-30 10:14] LABS: Glucose Urine UA NEG (NEG); Leukocyte Esterase Urine NEG (NEG); Nitrite Urine NEG (NEG); PH 6.5 (5.0-8.0); Specific Gravity - Urine <= 1.005 (1.005-1.025); Urine Blood NEG (NEG); Urine Ketones NEG (NEG); Urine Protein NEG (NEG-TRACE)
[2020-11-30 10:15] LABS: Appearance Urine CLEAR; Color Urine STRAW
--- NOTE | 2020-11-30 11:22 | MHC.CARE ---
CARE Team spoke with Pt who reported he has been medication compliant and has been seeing his therapist weekly x3 weeks. Pt has an upcoming medication prescriber appointment. Pt meets with his needle control cheniller for the first time this week. CARE Team spoke with Pts mother who does not have any concerns and plan for d/c. CARE Team provided Dr. Valentine with the informaiton.
[2020-12-04 09:40] LABS: Lyme Abs Screen <0.90 index
== END 2020-11-30 11:28 | disposition home or self-care (01) ==
PROVIDERS: Emergency Provider Emergency Medicine
DX: M79.10 Myalgia, unspecified site (principal); M54.5 Low back pain; R53.1 Weakness; F12.90 Cannabis use, unspecified, uncomplicated; F17.210 Nicotine dependence, cigarettes, uncomplicated; Z20.822 Contact with and (suspected) exposure to COVID-19; Z71.6 Tobacco abuse counseling; Z79.899 Other long term (current) drug therapy
CPT/HCPCS: 36415; 80048; 80076; 81003; 82550; 83735; 84443; 85025; 86140; 86617; 86618; 87635; 99283; 99284

== ENCOUNTER 2021-11-05 09:08 | Inpatient (IN) | payer OTHER, SELFPAY ==
--- NOTE | 2021-11-05 09:09 | ED.PSYCH ---
HPI - Psych General Chief Complaint: Psychiatric Symptoms Stated Complaint: PSYCH EVAL Time Seen by Provider: 11/05/21 09:09 Source: patient Mode of arrival: EMS Limitations: no limitations History of Present Illness HPI Narrative: 21 yo male with hx of schizophrenia off his meds for at least a year notes he thinks his neighbors are trying to hurt him so he wants to kill them. He is aware that he hearing voices and that others might not be able to hear them. He doesn't use drugs and stopped smoking THC - patient is on section 12 from community MD complaint: homicidal ideation, anxiety and hallucinations Onset (ago): month(s) Duration: getting worse History of same: Yes Relieving factors: none Exacerbating factors: other (not taking his medications) Context: not taking psychiatric medications Associated psychiatric symptoms: auditory hallucinations and delusions Associated symptoms: denies other symptoms Treatments prior to arrival: placed on mental health hold Related Data Home Medications Medication Instructions Recorded Confirmed No Known Home Meds 11/05/21 11/05/21 Allergies Allergy/AdvReac Type Severity Reaction Status Date / Time bee pollen [bee stings] Allergy Difficulty Verified 11/05/21 09:30 Breathing Review of Systems Review of Systems: Constitutional : No Fever, No Chills ENT/Mouth : No Ear Pain, No Nasal Congestion, No sore throat Eyes: No Eye Pain, No Swelling, No Redness Cardiovascular : No Chest Pain, No SOB Respiratory : No Cough, No Sputum, No Dyspnea Gastrointestinal : No Nausea, No Vomiting, No Diarrhea, No Hematochezia, No Melena Genitourinary : No Dysuria, No Urinary Frequency, No Hematuria Musculoskeletal : No Myalgias Skin : No Skin Lesions, No rash Neuro : No Weakness, No Numbness, No Paresthesias, No Dizziness, No Headache Psych : positive Anxiety, positive Depression, no SI pos HI, pos AH, no VH Heme/Lymph: No Lymphadenopathy Endocrine : No Polyuria, No Polydipsia All other systems reviewed and are negative [facility] Past Medical History Attestation statement: The following information was validated with the patient. Medical History Schizophrenia Social History Social History Household Members: Family Housing: House Do you presently have visiting nurse or other home services: No Alcohol intake: never Patient Tobacco Use Status: Never used Tobacco Tobacco use type: Cigarette e-Cigarette/Vaping Use: Former Use Second Hand Smoke Exposure: No Substance Use Type: Marijuana Advance Directives: No Advance Directives Information Provided: No service: Yes ([employer]) Sexual orientation: Was not discussed and is unknown Physical Exam Vital Signs: Vital Signs: Last Vital Signs Temp 98.3 F 11/05/21 09:26 Pulse 52 11/05/21 09:26 Resp 16 11/05/21 10:15 BP 110/80 11/05/21 09:26 Pulse Ox 98 11/05/21 09:26 O2 Del Method 11/05/21 09:26 BMI result Body Mass Index 20.0 Appearance: Alert. Oriented X3. No acute distress. Anxious, seems to be responding to internal stimuli Eyes: Pupils equal, round and reactive to light. ENT: Pharynx normal. Neck: Normal inspection. Neck supple. CVS: Normal heart rate and rhythm. Pulses normal. Respiratory: No respiratory distress. Breath sounds normal. Abdomen: Soft and non-tender. Skin: Skin warm and dry. Normal skin color. Normal skin turgor. Extremities: No lower extremity edema. No calf ttp Neuro: Oriented X 3. No motor deficit. No sensory deficit. CN2-12 intact. Course Course Course Narrative: Physician observation started at 1019am. Patient placed in physician observation because the patient needed more time for N to assess the need for psych admission. At the time observation was started the patient's vitals were stable, patient is alert and oriented but slightly agitated/anxious, Neuro: nonfocal, CV RRR, Lungs clear Physician observation ended at 4pm. Plan is to admit inpatient. MDM - Psych MDM Narrative Medical decision making narrative: 21 yo male with schizophrenia off of his medications here with c/o AH, HI towards neighbors, S12 from community suspect exacerbation off of his medications. At this time labs, COVID swab, PO olanzapine ordered, N consult Lab Data Result diagrams: 11/05/21 09:40 11/05/21 09:40 Labs: Lab Results 11/05/21 11/05/21 11/05/21 Range/Units 09:26 09:26 09:40 WBC 8.7 (4.8-10.8) X10*3/uL RBC 4.69 (4.60-5.80) X10*6/uL Hgb 14.2 (14.0-18.0) g/dl Hct 41.0 L (42.0-52.0) % MCV 87.4 (80.0-98.0) fL MCH 30.3 (27.0-33.0) pg MCHC 34.6 (31.0-36.0) g/dl RDW 12.2 (11.0-16.0) % Plt Count 262 (160-400) X10*3/uL MPV 11.2 (9.4-12.4) fL Immature Gran % (Auto) 0.2 (0.0-0.4) % Neut % (Auto) 69.4 (45-73) % Lymph % (Auto) 21.9 (20-40) % Fre[place] % (Auto) 6.8 (2-11) % Eos % (Auto) 1.4 (0-4) % Baso % (Auto) 0.3 (0-2) % Lymph # (Auto) 1.9 (1.2-4.9) X10*3/uL [place] # (Auto) 0.6 (0.1-1.2) X10*3/uL Eos # (Auto) 0.1 (0.0-0.4) X10*3/uL Baso # (Auto) 0.0 (0.0-0.2) X10*3/uL Abs Immat Gran (auto) 0.02 (0.00-0.03) X10*3/uL Absolute Neuts (auto) 6.1 (2.0-8.3) x10*3/uL Absolute Nucleated RBC 0.000 (0.0-0.012) X10*3/uL Nucleated RBC % (auto) 0.0 (0.0-0.2) /100WBC Sodium (135-145) mmol/L Potassium (3.3-5.1) mmol/L Chloride (96-108) mmol/L Carbon Dioxide (22-29) mmol/L Anion Gap (12-20) BUN (9-16) mg/dL Creatinine (0.5-1.4) mg/dL Estim Creat Clear Calc Estimated GFR Random Glucose (60-115) mg/dL Calcium (8.4-10.2) mg/dL Total Bilirubin (0.0-1.0) mg/dL Direct Bilirubin (0.0-0.5) mg/dL AST (5-37) U/L ALT (0-40) U/L Alkaline Phosphatase (39-117) U/L Total Protein (6.5-8.0) g/dL Albumin (3.5-5.0) g/dL Urine Opiates Screen Not Detected (Not Detect) Urine Fentanyl Screen Not Detected (Not Detect) Ur Barbiturates Screen Not Detected (Not Detect) Ur Phencyclidine Scrn Not Detected (Not Detect) Ur Amphetamines Screen Not Detected (Not Detect) U Benzodiazepines Scrn Not Detected (Not Detect) Urine Cocaine Screen Not Detected (Not Detect) U Marijuana (THC) Screen POSITIVE H (Not Detect) COVID-19 (RICA) Negative (Negative) COVID-19 Clin Com See Note 11/05/21 Range/Units 09:40 WBC (4.8-10.8) X10*3/uL RBC (4.60-5.80) X10*6/uL Hgb (14.0-18.0) g/dl Hct (42.0-52.0) % MCV (80.0-98.0) fL MCH (27.0-33.0) pg MCHC (31.0-36.0) g/dl RDW (11.0-16.0) % Plt Count (160-400) X10*3/uL MPV (9.4-12.4) fL Immature Gran % (Auto) (0.0-0.4) % Neut % (Auto) (45-73) % Lymph % (Auto) (20-40) % [place] % (Auto) (2-11) % Eos % (Auto) (0-4) % Baso % (Auto) (0-2) % Lymph # (Auto) (1.2-4.9) X10*3/uL [place] # (Auto) (0.1-1.2) X10*3/uL Eos # (Auto) (0.0-0.4) X10*3/uL Baso # (Auto) (0.0-0.2) X10*3/uL Abs Immat Gran (auto) (0.00-0.03) X10*3/uL Absolute Neuts (auto) (2.0-8.3) x10*3/uL Absolute Nucleated RBC (0.0-0.012) X10*3/uL Nucleated RBC % (auto) (0.0-0.2) /100WBC Sodium 141 (135-145) mmol/L Potassium 3.6 (3.3-5.1) mmol/L Chloride 105 (96-108) mmol/L Carbon Dioxide 26 (22-29) mmol/L Anion Gap 14 (12-20) BUN 13 (9-16) mg/dL Creatinine 0.90 (0.5-1.4) mg/dL Estim Creat Clear Calc 99.1 Estimated GFR > 60 Random Glucose 94 (60-115) mg/dL Calcium 9.3 (8.4-10.2) mg/dL Total Bilirubin 1.0 (0.0-1.0) mg/dL Direct Bilirubin 0.4 (0.0-0.5) mg/dL AST 15 (5-37) U/L ALT 6 (0-40) U/L Alkaline Phosphatase 60 (39-117) U/L Total Protein 7.2 (6.5-8.0) g/dL Albumin 4.7 (3.5-5.0) g/dL Urine Opiates Screen (Not Detect) Urine Fentanyl Screen (Not Detect) Ur Barbiturates Screen (Not Detect) Ur Phencyclidine Scrn (Not Detect) Ur Amphetamines Screen (Not Detect) U Benzodiazepines Scrn (Not Detect) Urine Cocaine Screen (Not Detect) U Marijuana (THC) Screen (Not Detect) COVID-19 ([facility]) (Negative) COVID-19 Clin Com Discharge Plan Discharge Clinical Impression: Schizophrenia Patient Disposition: Admitted As Inpatient Prescriptions: No Action No Known Home Meds
[2021-11-05 09:26] VITALS: BP 110/80; PULSE 52; RESP 16; TEMP 36.8; O2SAT 98
[2021-11-05 09:44] LABS: MANUAL DIFF FLAG NO
[2021-11-05] MEDS: OLANZapine 5 MG TABLET PO (09:44)
[2021-11-05 09:48] LABS: Basophils Percent Auto 0.3 % (0-2); Eosinophils Absolute Auto 0.1 X10*3/uL (0.0-0.4); Eosinophils Percent Auto 1.4 % (0-4); Hemoglobin 14.2 g/dl (14.0-18.0); Imm Gran Abs Auto 0.02 X10*3/uL (0.00-0.03); Imm Gran Pct Auto 0.2 % (0.0-0.4); Lymphocytes Absolute Auto 1.9 X10*3/uL (1.2-4.9); Lymphocytes Percent Auto 21.9 % (20-40); Mean Corpuscular HGB Conc 34.6 g/dl (31.0-36.0); Mean Corpuscular Hemoglobin 30.3 pg (27.0-33.0); Mean Corpuscular Volume 87.4 fL (80.0-98.0); Mean Platelet Volume 11.2 fL (9.4-12.4); Monocytes Absolute Auto 0.6 X10*3/uL (0.1-1.2); Monocytes Percent Auto 6.8 % (2-11); Neutrophils Absolute Auto 6.1 x10*3/uL (2.0-8.3); Neutrophils Percent Auto 69.4 % (45-73); Platelet Count 262 X10*3/uL (160-400); Red Blood Count 4.69 X10*6/uL (4.60-5.80); Red Cell Distribution Width 12.2 % (11.0-16.0); White Blood Count 8.7 X10*3/uL (4.8-10.8)
[2021-11-05 09:53] LABS: Amphetamine Screen Urine Not Detected (Not Detect); Barbiturates, Urine Not Detected (Not Detect); Benzodiazepines Screen Urine Not Detected (Not Detect); Cannabinoid Screen Urine POSITIVE (Not Detect); Cocaine Screen Urine Not Detected (Not Detect); Fentanyl, urine Not Detected (Not Detect); Opiate Screen Urine Not Detected (Not Detect); Phencyclidine Screen Urine Not Detected (Not Detect)
[2021-11-05 10:02] LABS: Alanine Aminotransferase 6 U/L (0-40); Albumin Level 4.7 g/dL (3.5-5.0); Alkaline Phosphatase 60 U/L (39-117); Anion Gap 14 (12-20); Aspartate Amino Transferase 15 U/L (5-37); Bilirubin Direct 0.4 mg/dL (0.0-0.5); Blood Urea Nitrogen 13 mg/dL (9-16); Calcium 9.3 mg/dL (8.4-10.2); Carbon Dioxide 26 mmol/L (22-29); Chloride 105 mmol/L (96-108); Creatinine Clr Calc Pharmacy 99.1; Estimated Glomerular Filt Rate > 60; Glucose Random 94 mg/dL (60-115); Potassium 3.6 mmol/L (3.3-5.1); Sodium 141 mmol/L (135-145); Total Protein 7.2 g/dL (6.5-8.0)
[2021-11-05 10:15] VITALS: RESP 16
[2021-11-05 10:18] LABS: COVID-19 Test Negative (Negative); IDNOW Serial# 16C4AD1C
[2021-11-05 18:00] VITALS: BP 123/83; PULSE 72; TEMP 36.6; O2SAT 98
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
[2021-11-05] MEDS: OLANZapine 10 MG TABLET 20 MG PO (21:23)
[2021-11-06 10:00] LABS: Cholesterol 162 mg/dL; HDL Cholesterol 47 mg/dL; LDL Cholesterol Calculated 105 mg/dl; Magnesium 2.1 mg/dL (1.6-2.6); Triglycerides 53 mg/dL
[2021-11-06 10:07] LABS: Estimated Average Glucose 105 mg/dL; Hemoglobin A1c % 5.3 %
[2021-11-06 10:21] LABS: Free T4 (Free Thyroxine) 1.32 ng/dL (0.71-1.85); Thyroid Stimulating Hormone 1.01 uIU/mL (0.32-4.0)
[2021-11-06 10:44] LABS: Vitamin B12 436 pg/mL (200-900)
[2021-11-06 16:06] VITALS: BP 136/60; PULSE 72; TEMP 36.6; O2SAT 96
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
[2021-11-07] MEDS: risperiDONE 1 MG TABLET PO (14:45)
[2021-11-07 18:00] VITALS: BP 128/68; PULSE 78; TEMP 36.3
--- NOTE | 2021-11-08 14:07 | P.PNPSI_ITS ---
Subjective Subjective Date of Service: 11/08/21 Reason For Visit: Schizophrenia Interim History: Patient anxious and a little distraught. Says he has not heard voices here but is still feeling restless. He agrees to increasing medications and says he did not sleep that well last night. It Application Development Manager inquired and patient affirm that he has a history of trauma though he did not talk about specifics; he says he sometimes has nightmares. He agreed to start prazosin which might help with sleep. That said he is less isolative it more social in the milieu and appropriate with peers and staff. Patient was confused white does not have auditory hallucinations on the unit but only at home; said he is worried that when he leaves here low start again. It Application Development Manager reviewed history a little more with him and patient agrees that it was after he stopped medications the last time that the voices started again. Mental Status Exam Mental Status Exam Patient Appearance: Appropriate Patient Orientation: Person, Place, Time and Situation Level of Consciousness: Appropriate and Alert Patient Behavior: Guarded, Talkative, Anxious and Good Eye Contact Mood Description: Anxious Affect Description: Anxious Patient Cognition Impaired: No Ability to Follow Directions: Good Speech Pattern: Clear and Spontaneous Speech Memory Description: Intact Hallucinations: Auditory (not since on unit) Delusions: Paranoid Ideation and Present Perceptual Disturbances: Depersonalization and Derealization Thought Process: Distracted and Rumination Thought Content: positive for [place], positive for Circumstantial, positive for Perseveration and positive for Preoccupation Depressive Symptoms: Increased Anxiety, Crying Spells, Loss of Int. in Activity, Feelings of Worthlessness, Hopelessness, Unhappiness, Low Self Esteem and Difficulty Concentrating Judgement: Poor Diagnostics Vital Signs (24Hr): Vital Signs - 24 hr 11/07/21 18:00 Temperature 97.4 F Pulse Rate 78 Blood Pressure 128/68 BMI result Body Mass Index 20.0 Labs Results: 11/05/21 09:40 11/05/21 09:40 Medications Medications Current Medications Acetaminophen (Acetaminophen 325 Mg Tablet) 650 mg PO Q6H PRN PRN Reason: Headache/Pain Mild Scale (1-3) Al Hydroxide/Mg Hydroxide (Magnesium Hydrox/Alum Hydrox 30 Ml Oral.Susp) 30 ml PO Q6H PRN PRN Reason: Heartburn/Nausea Diphenhydramine HCl (Diphenhydramine Hcl 25 Mg Tablet) 50 mg PO Q4H PRN PRN Reason: psychotic agitation Haloperidol (Haloperidol 5 Mg Tablet) 5 mg PO Q4H PRN PRN Reason: psychotic agitation Hydroxyzine HCl (Hydroxyzine Hcl 25 Mg Tablet) 25 mg PO Q6H PRN PRN Reason: Anxiety Lorazepam (Lorazepam 1 Mg Tablet) 1 mg PO Q4H PRN PRN Reason: psychotic agitation Magnesium Hydroxide (Milk Of Magnesia 30 Ml Oral.Susp) 30 ml PO DAILY PRN PRN Reason: Constipation Risperidone (Risperidone 2 Mg Tablet) 2 mg PO BEDTIME REGINE Trazodone HCl (Trazodone Hcl 50 Mg Tablet) 50 mg PO BEDTIME PRN PRN Reason: Insomnia Allergies Allergies Allergy/AdvReac Type Severity Reaction Status Date / Time bee pollen [bee stings] Allergy Difficulty Verified 11/05/21 09:30 Breathing Assessment & Plan Assessment & Plan (1) Schizophrenia: Status: Acute Code(s): F20.9 - Schizophrenia, unspecified Plan 21 yo male, hx schizophrenia, off medicines for 12 months + with paranoia, perceptual alterations and persecutory sx. Agrees to prn medicines. Will add an hs scheduled to help with sleep and anxiety and attempt to make alliance. 11/07 Patient reports that after he left the hospital last time he was doing well, taking his medications for few months; he stopped them however when he got his job in January. Soon after he reports that his neighbors and coworkers started making threats to harm him. This has been ongoing and is why patient presents now. He has never seen anyone say this but he can hear them talking behind his back saying things like they will kill him or the hit him in his face. Patient reports he does not hear any voices at all in the hospital. -Patient agrees to restart Risperdal which seem to be helpful during last admission. Patient denies any SI or HI. He says he is overall sleeping well enough. -He wants to discharge by November 18 to get back to his job otherwise he will lose it. 11/08 patient has trauma history; nightmares. Will start prazosin Plan: DC Olanzapine (pt refuses it) Start prazosin 1 mg q.h.s. for nightmares Risperdal 2 mg q.h.s. (patient seemed to do well enough on this at last admission) I spent minutes with the patient and/or on the patient floor today, greater than?50% of which was spent counseling/coordinating care. Patient educated on: diagnosis, medication risk/benefits and therapeutic strategies Informed Consent: understands and further education needed Reason for contiued inpatient stay Substantial Risk for: rapid decompensation
[2021-11-08 18:00] VITALS: BP 120/77; PULSE 77
[2021-11-08] MEDS: risperiDONE 2 MG TABLET PO (20:21)
[2021-11-08] MEDS: Prazosin HCL 1 MG CAPSULE PO (20:21)
[2021-11-09 06:00] VITALS: BP 125/60; PULSE 65; RESP 16; TEMP 36.4; O2SAT 98
--- NOTE | 2021-11-09 20:14 | HO.PSYCHPN ---
Subjective Subjective Date of Service: 11/09/21 Reason For Visit: Schizophrenia Subjective Notes: Conditional Voluntary Healthcare Proxy: No Guardianship: No Medical Problems Affecting Mental Status: No Interim History: I am doing better. Finding Risperdal helpful. Asks for sleep medication Reports constipation-colace added Prazosin helpful he also reports Reports less fear, less feeling of being threatened by everyone in the community, it may be because I am in a safe place, but it feels like things are changing. Medication Compliance: Yes Side effects from medications: No Review of Systems Acute medical concerns: No Medical Review of Systems: unchanged Review of Systems Reports behavioral changes Psychiatric: Reports abnormal sleep pattern, Reports anxiety, Reports behavioral changes, Reports difficulty concentrating, Reports auditory hallucinations and Reports hallucinations Mental Status Exam Mental Status Exam Patient Appearance: Appropriate Patient Orientation: Person, Place, Time and Situation Level of Consciousness: Alert Patient Behavior: Talkative and Cooperative Mood Description: Apprehensive Affect Description: Constricted Patient Cognition Impaired: No Ability to Follow Directions: Good Speech Pattern: Spontaneous Speech Memory Description: Intact Hallucinations: None Delusions: Paranoid Ideation and Present Perceptual Disturbances: Depersonalization and Derealization Thought Process: Distracted Thought Content: positive for Circum[place], positive for Perseveration and positive for Preoccupation Depressive Symptoms: Increased Fatigue, Low Self Esteem, Loss of Energy and Difficulty Concentrating Judgement: Fair Diagnostics Vital Signs (24Hr): Vital Signs - 24 hr 11/09/21 06:00 Temperature 97.5 F Pulse Rate 65 Respiratory Rate 16 Blood Pressure 125/60 Pulse Oximetry 98 Oxygen Delivery Method Room Air BMI result Body Mass Index 20.0 Labs Results: 11/05/21 09:40 11/05/21 09:40 Medications Medications Current Medications Acetaminophen (Acetaminophen 325 Mg Tablet) 650 mg PO Q6H PRN PRN Reason: Headache/Pain Mild Scale (1-3) Al Hydroxide/Mg Hydroxide (Magnesium Hydrox/Alum Hydrox 30 Ml Oral.Susp) 30 ml PO Q6H PRN PRN Reason: Heartburn/Nausea Diphenhydramine HCl (Diphenhydramine Hcl 25 Mg Tablet) 50 mg PO Q4H PRN PRN Reason: psychotic agitation Docusate Sodium (Docusate Sodium 100 Mg Capsule) 100 mg PO BID REGINE Haloperidol (Haloperidol 5 Mg Tablet) 5 mg PO Q4H PRN PRN Reason: psychotic agitation Hydroxyzine HCl (Hydroxyzine Hcl 25 Mg Tablet) 25 mg PO Q6H PRN PRN Reason: Anxiety Lorazepam (Lorazepam 1 Mg Tablet) 1 mg PO Q4H PRN PRN Reason: psychotic agitation Magnesium Hydroxide (Milk Of Magnesia 30 Ml Oral.Susp) 30 ml PO DAILY PRN PRN Reason: Constipation Mirtazapine (Mirtazapine 7.5 Mg Tablet) 7.5 mg PO BEDTIME REGINE Prazosin HCl (Prazosin Hcl 1 Mg Capsule) 1 mg PO BEDTIME REGINE; Protocol Last Admin: 11/08/21 20:21 Dose: 1 mg Risperidone (Risperidone 2 Mg Tablet) 2 mg PO BEDTIME REGINE Last Admin: 11/08/21 20:21 Dose: 2 mg Allergies Allergies Allergy/AdvReac Type Severity Reaction Status Date / Time bee pollen [bee stings] Allergy Difficulty Verified 11/05/21 09:30 Breathing Assessment & Plan Assessment & Plan (1) Schizophrenia: Status: Acute Code(s): F20.9 - Schizophrenia, unspecified Plan 21 yo male, hx schizophrenia, off medicines for 12 months + with paranoia, perceptual alterations and persecutory sx. Agrees to prn medicines. Will add an hs scheduled to help with sleep and anxiety and attempt to make alliance. 11/07 Patient reports that after he left the hospital last time he was doing well, taking his medications for few months; he stopped them however when he got his job in January. Soon after he reports that his neighbors and coworkers started making threats to harm him. This has been ongoing and is why patient presents now. He has never seen anyone say this but he can hear them talking behind his back saying things like they will kill him or the hit him in his face. Patient reports he does not hear any voices at all in the hospital. -Patient agrees to restart Risperdal which seem to be helpful during last admission. Patient denies any SI or HI. He says he is overall sleeping well enough. -He wants to discharge by November 18 to get back to his job otherwise he will lose it. 11/08 patient has trauma history; nightmares. Will start prazosin 11/09/21- Colace 100 mg bid Remeron 7.5 mg hs Plan: DC Olanzapine (pt refuses it) Start prazosin 1 mg q.h.s. for nightmares Risperdal 2 mg q.h.s. (patient seemed to do well enough on this at last admission) I spent minutes with the patient and/or on the patient floor today, greater than?50% of which was spent counseling/coordinating care. Patient educated on: medication risk/benefits and therapeutic strategies Informed Consent: understands and further education needed Reason for contiued inpatient stay Substantial Risk for: inability to function and rapid decompensation
[2021-11-09 20:33] VITALS: BP 137/67; PULSE 95; RESP 14; TEMP 37.3
[2021-11-09] MEDS: Mirtazapine 7.5 MG TABLET PO (20:33)
[2021-11-09] MEDS: risperiDONE 2 MG TABLET PO (20:33)
[2021-11-09] MEDS: Prazosin HCL 1 MG CAPSULE PO (20:33)
[2021-11-09] MEDS: Docusate Sodium 100 MG CAPSULE PO (20:37)
--- NOTE | 2021-11-10 | ECG_ITS ---
Test Reason : new start on antipsychotic med r/o QTc prolongatio Blood Pressure : / mmHG Vent. Rate : 072 BPM Atrial Rate : 072 BPM P-R Int : 150 ms QRS Dur : 084 ms QT Int : 384 ms P-R-T Axes : 029 075 056 degrees QTc Int : 420 ms Normal sinus rhythm Normal ECG No previous ECGs available Referred By: Nanda Joyce Electronically Signed By:WAQAS LEMUS
[2021-11-10 06:00] VITALS: BP 117/62; PULSE 87; RESP 18; TEMP 36.2; O2SAT 98
[2021-11-10] MEDS: Docusate Sodium 100 MG CAPSULE PO ×2 (08:17→19:08)
[2021-11-10] MEDS: hydrOXYzine HCL 25 MG TABLET PO (08:17)
[2021-11-10 08:42] VITALS: BP 117/62; PULSE 87; RESP 18; TEMP 36.2; O2SAT 98
--- NOTE | 2021-11-10 17:02 | P.PNPSI_ITS ---
Subjective Subjective Date of Service: 11/10/21 Reason For Visit: Schizophrenia Interim History: Patient said he is feeling much better. And says I am way better today patient denies any auditory hallucinations and says that he is ready for discharge and wants to get back to work. Patient said he does not really want to be on medications for the rest of his life and fiction and nonfiction prose writer educated patient on illness and the fact that he may need them. He says that he will stay on the medications for while but then help probably go off them to see if the voices come back. If they do he said he will get back on the medications. No SI no HI, affect noticeably brighter Mental Status Exam Mental Status Exam Patient Appearance: Appropriate Patient Orientation: Person, Place, Time and Situation Level of Consciousness: Appropriate and Alert Patient Behavior: Appropriate, Talkative and Good Eye Contact Mood Description: Happy and Appropriate Affect Description: Happy Patient Cognition Impaired: No Ability to Follow Directions: Good Speech Pattern: Clear and Spontaneous Speech Memory Description: Intact Hallucinations: Auditory (not since on unit) Delusions: Paranoid Ideation (less) and Present Perceptual Disturbances: Depersonalization and Derealization Thought Process: Goal Oriented Thought Content: positive for [place], positive for Suicidal Ideation (none) a nd positive for Homicidal Ideation (none) Judgement: Fair Diagnostics Vital Signs (24Hr): Vital Signs - 24 hr 11/09/21 20:33 11/10/21 06:00 11/10/21 08:42 Temperature 99.1 F 97.1 F 97.1 F Pulse Rate 95 87 87 Respiratory Rate 14 18 18 Blood Pressure 137/67 117/62 117/62 Pulse Oximetry 98 98 Oxygen Delivery Method Room Air Room Air BMI result Body Mass Index 20.0 Labs Results: 11/05/21 09:40 11/05/21 09:40 Medications Medications Current Medications Acetaminophen (Acetaminophen 325 Mg Tablet) 650 mg PO Q6H PRN PRN Reason: Headache/Pain Mild Scale (1-3) Al Hydroxide/Mg Hydroxide (Magnesium Hydrox/Alum Hydrox 30 Ml Oral.Susp) 30 ml PO Q6H PRN PRN Reason: Heartburn/Nausea Diphenhydramine HCl (Diphenhydramine Hcl 25 Mg Tablet) 50 mg PO Q4H PRN PRN Reason: psychotic agitation Docusate Sodium (Docusate Sodium 100 Mg Capsule) 100 mg PO BID REGINE Last Admin: 11/10/21 08:17 Dose: 100 mg Haloperidol (Haloperidol 5 Mg Tablet) 5 mg PO Q4H PRN PRN Reason: psychotic agitation Hydroxyzine HCl (Hydroxyzine Hcl 25 Mg Tablet) 25 mg PO Q6H PRN PRN Reason: Anxiety Last Admin: 11/10/21 08:17 Dose: 25 mg Lorazepam (Lorazepam 1 Mg Tablet) 1 mg PO Q4H PRN PRN Reason: psychotic agitation Magnesium Hydroxide (Milk Of Magnesia 30 Ml Oral.Susp) 30 ml PO DAILY PRN PRN Reason: Constipation Mirtazapine (Mirtazapine 7.5 Mg Tablet) 7.5 mg PO BEDTIME REGINE Last Admin: 11/09/21 20:33 Dose: 7.5 mg Prazosin HCl (Prazosin Hcl 1 Mg Capsule) 1 mg PO BEDTIME REGINE; Protocol Last Admin: 11/09/21 20:33 Dose: 1 mg Risperidone (Risperidone 2 Mg Tablet) 2 mg PO BEDTIME REGINE Last Admin: 11/09/21 20:33 Dose: 2 mg Allergies Allergies Allergy/AdvReac Type Severity Reaction Status Date / Time bee pollen [bee stings] Allergy Difficulty Verified 11/05/21 09:30 Breathing Assessment & Plan Assessment & Plan (1) Schizophrenia: Status: Acute Code(s): F20.9 - Schizophrenia, unspecified Plan 21 yo male, hx schizophrenia, off medicines for 12 months + with paranoia, perceptual alterations and persecutory sx. Agrees to prn medicines. Will add an hs scheduled to help with sleep and anxiety and attempt to make alliance. 11/07 Patient reports that after he left the hospital last time he was doing well, taking his medications for few months; he stopped them however when he got his job in January. Soon after he reports that his neighbors and coworkers started making threats to harm him. This has been ongoing and is why patient presents now. He has never seen anyone say this but he can hear them talking behind his back saying things like they will kill him or the hit him in his face. Patient reports he does not hear any voices at all in the hospital. -Patient agrees to restart Risperdal which seem to be helpful during last adm ission. Patient denies any SI or HI. He says he is overall sleeping well enough. -He wants to discharge by November 18 to get back to his job otherwise he will lose it. 11/08 patient has trauma history; nightmares. Will start prazosin 11/09/21- Colace 100 mg bid Remeron 7.5 mg hs 11/10 reports feeling better; no AH, feeling back to regular self Plan: 3 day notice DC Olanzapine (pt refuses it) Start prazosin 1 mg q.h.s. for nightmares Risperdal 2 mg q.h.s. (patient seemed to do well enough on this at last admission) I spent minutes with the patient and/or on the patient floor today, greater than?50% of which was spent counseling/coordinating care. Patient educated on: diagnosis and medication risk/benefits Informed Consent: understands Reason for contiued inpatient stay Substantial Risk for: med/psych decompensation
[2021-11-10 18:00] VITALS: BP 124/72; PULSE 83; TEMP 36.3; O2SAT 100
[2021-11-10] MEDS: risperiDONE 2 MG TABLET PO (19:07)
[2021-11-10] MEDS: Mirtazapine 7.5 MG TABLET PO (19:08)
[2021-11-10] MEDS: Prazosin HCL 1 MG CAPSULE PO (19:08)
[2021-11-11 06:00] VITALS: BP 113/73; PULSE 62; RESP 16; TEMP 36.2; O2SAT 100
[2021-11-11] MEDS: Docusate Sodium 100 MG CAPSULE PO ×2 (08:00→19:27)
--- NOTE | 2021-11-11 16:01 | HO.PSYCHPN ---
Subjective Subjective Date of Service: 11/11/21 Reason For Visit: Schizophrenia Subjective Notes: Conditional Voluntary and 3 Day (11/12/21) Healthcare Proxy: No Guardianship: No Medical Problems Affecting Mental Status: No Interim History: Three day notice to 11/12/21. Sebastian reports he is feeling improved on medication and is ready to leave. Review of discharge plans, pt wanting to return to work, and pt's report of struggling with symptoms for such a long period of time. Discussed resources for his use in the future should sx recur. Medication Compliance: Yes Side effects from medications: No Attending Groups: Intermittent Review of Systems Acute medical concerns: No Medical Review of Systems: unchanged Review of Systems Psychiatric: Reports no additional psychiatric complaints Mental Status Exam Mental Status Exam Patient Appearance: Appropriate Patient Orientation: Person, Place, Time and Situation Level of Consciousness: Alert Patient Behavior: Appropriate, Talkative, Cooperative and Good Eye Contact Mood Description: Withdrawn Affect Description: Flat Patient Cognition Impaired: No Ability to Follow Directions: Good Speech Pattern: Spontaneous Speech Memory Description: Intact Hallucinations: None Delusions: Not Present Thought Process: Intact and Goal Oriented Thought Content: positive for Intact, positive for Circumstantial and positive for Goal Oriented Judgement: Good Diagnostics Vital Signs (24Hr): Vital Signs - 24 hr 11/10/21 18:00 11/11/21 06:00 Temperature 97.3 F 97.1 F Pulse Rate 83 62 Respiratory Rate 16 Blood Pressure 124/72 113/73 Pulse Oximetry 100 100 Oxygen Delivery Method Room Air BMI result Body Mass Index 20.0 Labs Results: 11/05/21 09:40 11/05/21 09:40 Medications Medications Current Medications Acetaminophen (Acetaminophen 325 Mg Tablet) 650 mg PO Q6H PRN PRN Reason: Headache/Pain Mild Scale (1-3) Al Hydroxide/Mg Hydroxide (Magnesium Hydrox/Alum Hydrox 30 Ml Oral.Susp) 30 ml PO Q6H PRN PRN Reason: Heartburn/Nausea Diphenhydramine HCl (Diphenhydramine Hcl 25 Mg Tablet) 50 mg PO Q4H PRN PRN Reason: psychotic agitation Docusate Sodium (Docusate Sodium 100 Mg Capsule) 100 mg PO BID REGINE Last Admin: 11/11/21 08:00 Dose: 100 mg Haloperidol (Haloperidol 5 Mg Tablet) 5 mg PO Q4H PRN PRN Reason: psychotic agitation Hydroxyzine HCl (Hydroxyzine Hcl 25 Mg Tablet) 25 mg PO Q6H PRN PRN Reason: Anxiety Last Admin: 11/10/21 08:17 Dose: 25 mg Lorazepam (Lorazepam 1 Mg Tablet) 1 mg PO Q4H PRN PRN Reason: psychotic agitation Magnesium Hydroxide (Milk Of Magnesia 30 Ml Oral.Susp) 30 ml PO DAILY PRN PRN Reason: Constipation Mirtazapine (Mirtazapine 7.5 Mg Tablet) 7.5 mg PO BEDTIME REGINE Last Admin: 11/10/21 19:08 Dose: 7.5 mg Prazosin HCl (Prazosin Hcl 1 Mg Capsule) 1 mg PO BEDTIME RGEINE; Protocol Last Admin: 11/10/21 19:08 Dose: 1 mg Risperidone (Risperidone 2 Mg Tablet) 2 mg PO BID REGINE Allergies Allergies Allergy/AdvReac Type Severity Reaction Status Date / Time bee pollen [bee stings] Allergy Difficulty Verified 11/05/21 09:30 Breathing Assessment & Plan Assessment & Plan (1) Schizophrenia: Status: Acute Code(s): F20.9 - Schizophrenia, unspecified Plan 21 yo male, hx schizophrenia, off medicines for 12 months + with paranoia, perceptual alterations and persecutory sx. Agrees to prn medicines. Will add an hs scheduled to help with sleep and anxiety and attempt to make alliance. 11/07 Patient reports that after he left the hospital last time he was doing well, taking his medications for few months; he stopped them however when he got his job in January. Soon after he reports that his neighbors and coworkers started making threats to harm him. This has been ongoing and is why patient presents now. He has never seen anyone say this but he can hear them talking behind his back saying things like they will kill him or the hit him in his face. Patient reports he does not hear any voices at all in the hospital. -Patient agrees to restart Risperdal which seem to be helpful during last admission. Patient denies any SI or HI. He says he is overall sleeping well enough. -He wants to discharge by November 18 to get back to his job otherwise he will lose it. 11/08 patient has trauma history; nightmares. Will start prazosin 11/09/21- Colace 100 mg bid Remeron 7.5 mg hs 11/11/21 Discharge 11/12 via three day notice. Pt ready to resume his work and life. Denies current sx. Plan: DC Olanzapine (pt refuses it) Start prazosin 1 mg q.h.s. for nightmares Risperdal 2 mg q.h.s. (patient seemed to do well enough on this at last admission) I spent minutes with the patient and/or on the patient floor today, greater than?50% of which was spent counseling/coordinating care. Patient educated on: medication risk/benefits and therapeutic strategies Informed Consent: understands Reason for contiued inpatient stay Substantial Risk for: rapid decompensation
[2021-11-11] MEDS: Prazosin HCL 1 MG CAPSULE PO (19:27)
[2021-11-11] MEDS: risperiDONE 2 MG TABLET PO (19:27)
[2021-11-11] MEDS: Mirtazapine 7.5 MG TABLET PO (19:28)
[2021-11-11 20:36] VITALS: BP 106/65; PULSE 84; RESP 14; TEMP 37.2; O2SAT 97
[2021-11-11] MEDS: diphenhydrAMINE HCL 25 MG TABLET 50 MG PO (22:11)
[2021-11-12 06:00] VITALS: BP 118/78; PULSE 97; TEMP 36.3; O2SAT 97
[2021-11-12 07:00] VITALS: BMI 19.8
[2021-11-12] MEDS: Docusate Sodium 100 MG CAPSULE PO (08:19)
[2021-11-12] MEDS: risperiDONE 2 MG TABLET PO (08:19)
--- NOTE | 2021-11-12 17:39 | PM.PSYDC ---
DS: Providers Provider Date of Service: 11/11/21 Date of admission: 11/05/21 16:22 Date of discharge: 11/11/21 Primary care physician: Brian Physician Admitting clinician: Nanda Joyce Attending physician on admission: Kahlil Oliveira Attending physician on discharge: Kahlil Oliveira Discharging clinician: Nanda Joyce DS: Diagnosis Discharge Diagnosis (1) Schizophrenia: Status: Acute DS: Medications Discharge Medications Home Medications: Home Medications Medication Instructions Recorded Confirmed No Known Home Meds 11/05/21 11/05/21 Previous Rx's Medication Instructions Recorded docusate sodium 100 mg capsule 100 mg PO BID #60 caps 11/11/21 hydroxyzine HCl 25 mg tablet 25 mg PO Q6H PRN Anxiety #90 tabs 11/11/21 prazosin 1 mg capsule 1 mg PO BEDTIME #30 caps 11/11/21 risperidone 2 mg tablet 2 mg PO BID #60 tabs 11/11/21 Mental Status Exam Mental Status Exam Patient Appearance: Appropriate Patient Orientation: Person, Place, Time and Situation Level of Consciousness: Alert Patient Behavior: Appropriate, Talkative, Cooperative and Good Eye Contact Mood Description: Withdrawn Affect Description: Flat Patient Cognition Impaired: No Ability to Follow Directions: Good Speech Pattern: Spontaneous Speech Memory Description: Intact Hallucinations: None Delusions: Not Present Thought Process: Intact and Goal Oriented Thought Content: positive for Intact, positive for Circumstantial and positive for Goal Oriented Judgement: Good Data Data Completed and Pending Completed studies during hospitalization [Text1]: 11/06/21 11/06/21 11/06/21 09:16 09:16 09:16 Estimat Average Glucose 105 Hemoglobin A1c % 5.3 Magnesium 2.1 Triglycerides 53 Cholesterol 162 LDL Cholesterol, Calc 105 HDL Cholesterol 47 Vitamin B12 436 Folate 11.0 TSH 1.01 Free T4 1.32 DS: Summary Hospital Course Hospital Course: Admission to adult psychiatry for exacerbation of symptoms of schizophrenia. Risperdal, Prazosin, Remeron initiated and pt accepted these as he reports he has been off medications for ~ 12 months. Time spent discussing smoking cessation with patient: 3 to 10 minutes Status at Discharge Functional status at discharge: independent ambulation Overall status at discharge: patient is progressing back to baseline Time Spent with Patient Time attestation: Total time spent providing and/or coordinating discharge services: 35 Time spent: Greater than 30 minutes Discharge Plan Discharge Patient Disposition: Home, Self-Care Discharge Diagnosis: Schizophrenia Referrals: Kapil Schumacher [Other] - 11/18/21 3:00 pm (Initial Diagnostic evaluation with therapist at [facility] Appointment in office at [facility].) Karolina Yahaira [Other] - 12/09/21 11:00 am (Initial Psychiatric evaluation with Medication provider Appointment is by tele-health check your email for a link to the appointment.) Karolina Syed [Other] - 01/05/22 12:40 pm (Medication Management Appointment Appointment by tele-health. Please check your email for a link to appointment.) [facility] [Other] (Sebastian reports existing appointment with PCP, declines request for staff to follow up.) Discharge Medications: No Action prazosin 1 mg capsule 1 cap PO BEDTIME risperidone 2 mg tablet 1 tab PO BID docusate sodium 100 mg capsule 1 cap PO BID hydroxyzine HCl 25 mg tablet 1 tab PO Q6H PRN (Reason: anxiety) Discharge Orders: Discharge Order (Routine); Ordered 11/11/21 Ordered By: Nanda Joyce Diet: Advance to usual diet Activity on Discharge: As tolerated Stand Alone Forms: Patient Portal Discharge page, Community Support Care Plan Goals: Mood Stabilization Health Concerns: Schizophrenia Plan of Treatment: Attend follow up appointments Take medications as directed Call or return as needed Crisis Team if needed [phone] Assessment: non suicidal, non psychotic Discharge Date/Time: 11/12/21 13:46
== END 2021-11-12 13:46 | disposition home or self-care (01) | DRG 750 ==
LOC: HO.ED 15:45 → HO.PM5 16:30
PROVIDERS: Admitting Provider Psychiatry & Neurology Psychiatry; Emergency Provider Emergency Medicine; Visit Provider Clinical Nurse Specialist Psychiatric/Mental Health, Adult
DX: F20.9 Schizophrenia, unspecified (principal); Z91.14 Patient's other noncompliance with medication regimen; Z20.822 Contact with and (suspected) exposure to COVID-19; Z87.891 Personal history of nicotine dependence; Z79.899 Other long term (current) drug therapy; Z91.030 Bee allergy status
CPT/HCPCS: 36415; 80048; 80061; 80076; 80307; 82607; 82746; 83036; 83735; 84439; 84443; 85025; 87635; 93005; 99285; Q0163

== ENCOUNTER 2021-11-23 19:40 | Inpatient (IN) | payer OTHER, MEDICAID, SELFPAY ==
--- NOTE | 2021-11-23 19:55 | ED_ITS ---
HPI - Psych General Chief Complaint: Psychiatric Symptoms Stated Complaint: Section 12 Time Seen by Provider: 11/23/21 19:55 Source: patient Mode of arrival: EMS Limitations: no limitations History of Present Illness HPI Narrative: Patient had a panic attack, hearing voices that want to hurt him. Patient is worried that the voices are going to hurt him. Patient is taking his medications and lives with his family. Step zackery called the ambulance complaint: hallucinations Onset (ago): week(s) Duration: intermittent History of same: Yes Relieving factors: none Associated psychiatric symptoms: racing thoughts, auditory hallucinations and visual hallucinations Related Data Home Medications Medication Instructions Recorded Confirmed docusate sodium 100 mg capsule 1 cap PO BID 11/23/21 11/23/21 hydroxyzine HCl 25 mg tablet 1 tab PO Q6H PRN anxiety 11/23/21 11/23/21 prazosin 1 mg capsule 1 cap PO BEDTIME 11/23/21 11/23/21 risperidone 2 mg tablet 1 tab PO BID 11/23/21 11/23/21 Allergies Allergy/AdvReac Type Severity Reaction Status Date / Time bee pollen [bee stings] Allergy Difficulty Verified 11/05/21 09:30 Breathing Review of Systems Constitutional: Constitutional: Reports no additional constitutional complaints Eyes: Eyes: Reports no additional eye complaints ENT: Denies dizziness Cardiovascular: Cardiovascular: Reports no additional cardiovascular complaints Respiratory: Respiratory: Reports as per HPI Gastrointestinal: Gastrointestinal: Reports no additional gastrointestinal complaints Musculoskeletal: Musculoskeletal: Reports no additional musculoskeletal complaints Integumentary/Breasts: Skin/Breast: Denies rash Neurologic: Reports system reviewed and no additional complaints, except as documented, Denies dizziness and Denies Sensory deficit (Neuro) Psychiatric: Psychiatric: Denies anxiety PMFSH Past Medical History Medical History Schizophrenia Social History Social History Household Members: Family Housing: House Do you presently have visiting nurse or other home services: No Alcohol intake: never Patient Tobacco Use Status: Current someday Tobacco user Tobacco use type: Cigarette Years Smoked: 3 e-Cigarette/Vaping Use: Former Use Second Hand Smoke Exposure: No Use of substances other than those prescribed or required for medical reasons: Yes Substance Use Type: Marijuana Substance Use Frequency: Occasionally Advance Directives: No Advance Directives Information Provided: No 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) Sexual orientation: Straight/Heterosexual Physical Exam Vital Signs: Vital Signs: Last Vital Signs Temp 97.8 F 11/23/21 23:28 Pulse 63 11/23/21 23:28 Resp 16 11/23/21 23:28 BP 98/52 L 11/23/21 23:28 Pulse Ox 97 11/23/21 23:28 O2 Del Method 11/23/21 23:28 BMI result Body Mass Index 20.0 Const: Other: guarded flat affect General: healthy appearing Nutritional Appearance: average body habitus Orientation/consciousness: oriented to person and patient oriented x3 Limitations: no limitations HEENT: Head: Yes normal to inspection Ears: external ears normal General nose exam: Normal external nose present Mouth: Normal oral and palatal mucosa present and oropharynx normal Throat: Yes posterior oropharynx normal Eyes: General: appearance normal, both eyes and all related structures Neck: Other: supple Neck: Yes normal visual inspection Chest: Chest palpation & inspection: normal inspection of the chest Resp: Auscultation: clear to auscultation bilaterally Cardio: Jugular venous distension: no JVD Rate: regular rate Rhythm: regular rhythm Heart sounds: S1 normal heart sound present and S2 normal heart sound present GI: Inspection: Yes normal to inspection Palpation (GI): Soft to palpation, nontender and No hepatosplenomegaly present Auscultation: normal bowel sounds : General: Yes no CVA tenderness Back/Spine/Pelvis: Back: no CVA tenderness Skin: General skin exam: no rashes or lesions noted Neuro: General: oriented to person and patient oriented x3 Cranial nerves: Yes CN's II-XII intact bilaterally Motor exam (neuro): 5/5 motor strength present throughout Sensory Exam: No Sensory deficit (Neuro) Extrem: General: Yes normal to inspection Psych: Other: guarded flat affect MDM - Psych Lab Data Result diagrams: 11/23/21 20:27 11/23/21 20:27 Labs: Lab Results 11/23/21 11/23/21 11/23/21 Range/Units 20:27 20:27 22:09 WBC 12.6 H (4.8-10.8) X10*3/uL RBC 4.37 L (4.60-5.80) X10*6/uL Hgb 13.2 L (14.0-18.0) g/dl Hct 38.0 L (42.0-52.0) % MCV 87.0 (80.0-98.0) fL MCH 30.2 (27.0-33.0) pg MCHC 34.7 (31.0-36.0) g/dl RDW 12.4 (11.0-16.0) % Plt Count 268 (160-400) X10*3/uL MPV 10.2 (9.4-12.4) fL Immature Gran % (Auto) 0.8 H (0.0-0.4) % Neut % (Auto) 78.8 H (45-73) % Lymph % (Auto) 12.8 L (20-40) % [place] % (Auto) 6.4 (2-11) % Eos % (Auto) 1.0 (0-4) % Baso % (Auto) 0.2 (0-2) % Lymph # (Auto) 1.6 (1.2-4.9) X10*3/uL [place] # (Auto) 0.8 (0.1-1.2) X10*3/uL Eos # (Auto) 0.1 (0.0-0.4) X10*3/uL Baso # (Auto) 0.0 (0.0-0.2) X10*3/uL Abs Immat Gran (auto) 0.10 H (0.00-0.03) X10*3/uL Absolute Neuts (auto) 9.9 H (2.0-8.3) x10*3/uL Absolute Nucleated RBC 0.000 (0.0-0.012) X10*3/uL Nucleated RBC % (auto) 0.0 (0.0-0.2) /100WBC Sodium 140 (135-145) mmol/L Potassium 3.6 (3.3-5.1) mmol/L Chloride 105 (96-108) mmol/L Carbon Dioxide 25 (22-29) mmol/L Anion Gap 14 (12-20) BUN 14 (9-16) mg/dL Creatinine 0.89 (0.5-1.4) mg/dL Estim Creat Clear Calc 100.2 Estimated GFR > 60 Random Glucose 78 (60-115) mg/dL Calcium 9.3 (8.4-10.2) mg/dL Total Bilirubin 0.4 (0.0-1.0) mg/dL AST 13 (5-37) U/L ALT 9 (0-40) U/L Alkaline Phosphatase 51 (39-117) U/L Total Protein 6.8 (6.5-8.0) g/dL Albumin 4.3 (3.5-5.0) g/dL Salicylates < 5.0 L (15-30) mg/dL Urine Opiates Screen Not Detected (Not Detect) Urine Fentanyl Screen Not Detected (Not Detect) Acetaminophen < 1 (<30) mcg/mL Ur Barbiturates Screen Not Detected (Not Detect) Ur Phencyclidine Scrn Not Detected (Not Detect) Ur Amphetamines Screen Not Detected (Not Detect) U Benzodiazepines Scrn Not Detected (Not Detect) Urine Cocaine Screen Not Detected (Not Detect) U Marijuana (THC) Screen POSITIVE H (Not Detect) Ethyl Alcohol < 10 mg/dL COVID-19 ([facility]ICA) (Negative) COVID-19 Clin Com 11/23/21 Range/Units 23:27 WBC (4.8-10.8) X10*3/uL RBC (4.60-5.80) X10*6/uL Hgb (14.0-18.0) g/dl Hct (42.0-52.0) % MCV (80.0-98.0) fL MCH (27.0-33.0) pg MCHC (31.0-36.0) g/dl RDW (11.0-16.0) % Plt Count (160-400) X10*3/uL MPV (9.4-12.4) fL Immature Gran % (Auto) (0.0-0.4) % Neut % (Auto) (45-73) % Lymph % (Auto) (20-40) % [place] % (Auto) (2-11) % Eos % (Auto) (0-4) % Baso % (Auto) (0-2) % Lymph # (Auto) (1.2-4.9) X10*3/uL [place] # (Auto) (0.1-1.2) X10*3/uL Eos # (Auto) (0.0-0.4) X10*3/uL Baso # (Auto) (0.0-0.2) X10*3/uL Abs Immat Gran (auto) (0.00-0.03) X10*3/uL Absolute Neuts (auto) (2.0-8.3) x10*3/uL Absolute Nucleated RBC (0.0-0.012) X10*3/uL Nucleated RBC % (auto) (0.0-0.2) /100WBC Sodium (135-145) mmol/L Potassium (3.3-5.1) mmol/L Chloride (96-108) mmol/L Carbon Dioxide (22-29) mmol/L Anion Gap (12-20) BUN (9-16) mg/dL Creatinine (0.5-1.4) mg/dL Estim Creat Clear Calc Estimated GFR Random Glucose (60-115) mg/dL Calcium (8.4-10.2) mg/dL Total Bilirubin (0.0-1.0) mg/dL AST (5-37) U/L ALT (0-40) U/L Alkaline Phosphatase (39-117) U/L Total Protein (6.5-8.0) g/dL Albumin (3.5-5.0) g/dL Salicylates (15-30) mg/dL Urine Opiates Screen (Not Detect) Urine Fentanyl Screen (Not Detect) Acetaminophen (<30) mcg/mL Ur Barbiturates Screen (Not Detect) Ur Phencyclidine Scrn (Not Detect) Ur Amphetamines Screen (Not Detect) U Benzodiazepines Scrn (Not Detect) Urine Cocaine Screen (Not Detect) U Marijuana (THC) Screen (Not Detect) Ethyl Alcohol mg/dL COVID-19 ([facility]) Negative (Negative) COVID-19 Clin Com See Note Discharge Plan Discharge Clinical Impression: Delusions Patient Disposition: Still a Patient Prescriptions: No Action prazosin 1 mg capsule 1 cap PO BEDTIME risperidone 2 mg tablet 1 tab PO BID docusate sodium 100 mg capsule 1 cap PO BID hydroxyzine HCl 25 mg tablet 1 tab PO Q6H PRN (Reason: anxiety)
[2021-11-23 19:56] VITALS: BP 136/64; PULSE 90; RESP 18; O2SAT 97
--- NOTE | 2021-11-23 20:04 | MHC.CARE ---
BOYD contacted the CARE team. Pt was evaluated by BOYD in the community and is being sent to the ED as a inpt psych bedsearch.
[2021-11-23 20:32] LABS: Basophils Percent Auto 0.2 % (0-2); Eosinophils Absolute Auto 0.1 X10*3/uL (0.0-0.4); Hemoglobin 13.2 g/dl (14.0-18.0); Imm Gran Pct Auto 0.8 % (0.0-0.4); Lymphocytes Absolute Auto 1.6 X10*3/uL (1.2-4.9); Lymphocytes Percent Auto 12.8 % (20-40); MANUAL DIFF FLAG NO; Mean Corpuscular HGB Conc 34.7 g/dl (31.0-36.0); Mean Corpuscular Hemoglobin 30.2 pg (27.0-33.0); Mean Platelet Volume 10.2 fL (9.4-12.4); Monocytes Absolute Auto 0.8 X10*3/uL (0.1-1.2); Monocytes Percent Auto 6.4 % (2-11); Neutrophils Absolute Auto 9.9 x10*3/uL (2.0-8.3); Neutrophils Percent Auto 78.8 % (45-73); Platelet Count 268 X10*3/uL (160-400); Red Blood Count 4.37 X10*6/uL (4.60-5.80); Red Cell Distribution Width 12.4 % (11.0-16.0); White Blood Count 12.6 X10*3/uL (4.8-10.8)
[2021-11-23 20:48] LABS: Acetaminophen LAB < 1 mcg/mL (<30); Alanine Aminotransferase 9 U/L (0-40); Albumin Level 4.3 g/dL (3.5-5.0); Alkaline Phosphatase 51 U/L (39-117); Anion Gap 14 (12-20); Aspartate Amino Transferase 13 U/L (5-37); Bilirubin Total 0.4 mg/dL (0.0-1.0); Blood Urea Nitrogen 14 mg/dL (9-16); Calcium 9.3 mg/dL (8.4-10.2); Carbon Dioxide 25 mmol/L (22-29); Chloride 105 mmol/L (96-108); Creatinine Clr Calc Pharmacy 100.2; Estimated Glomerular Filt Rate > 60; Ethanol < 10 mg/dL; Glucose Random 78 mg/dL (60-115); Potassium 3.6 mmol/L (3.3-5.1); Salicylate < 5.0 mg/dL (15-30); Sodium 140 mmol/L (135-145); Total Protein 6.8 g/dL (6.5-8.0)
[2021-11-23 22:27] LABS: Amphetamine Screen Urine Not Detected (Not Detect); Barbiturates, Urine Not Detected (Not Detect); Benzodiazepines Screen Urine Not Detected (Not Detect); Cannabinoid Screen Urine POSITIVE (Not Detect); Cocaine Screen Urine Not Detected (Not Detect); Fentanyl, urine Not Detected (Not Detect); Opiate Screen Urine Not Detected (Not Detect); Phencyclidine Screen Urine Not Detected (Not Detect)
[2021-11-23 23:28] VITALS: BP 98/52; PULSE 63; RESP 16; TEMP 36.6; O2SAT 97
[2021-11-23 23:47] LABS: COVID-19 Test Negative (Negative)
--- NOTE | 2021-11-24 06:49 | PC.NURSE ---
Patient slept through the night, no distress observed/reported, medication compliant, disposition per [facility] is section 12 inpatient bed search, med rec completed/MAY updated, behavior appropriate and non concerning, VSS, will continue to monitor.
--- NOTE | 2021-11-24 07:41 | PC.NURSE ---
patuient appears to remain asleep at present respirations are even and unlabored patient appears in no distress.
[2021-11-24 08:48] VITALS: BP 105/60; PULSE 74; RESP 14; TEMP 37.1; O2SAT 94
[2021-11-24] MEDS: risperiDONE 2 MG TABLET PO ×2 (12:50→20:14)
[2021-11-24] MEDS: Docusate Sodium 100 MG CAPSULE PO ×2 (12:50→20:14)
[2021-11-24 18:31] VITALS: BP 125/66; PULSE 83; RESP 16; TEMP 36.3; O2SAT 99
[2021-11-24] MEDS: Prazosin HCL 1 MG CAPSULE PO (20:14)
[2021-11-24] MEDS: hydrOXYzine HCL 25 MG TABLET PO (22:39)
--- NOTE | 2021-11-25 | ECG_ITS ---
Test Reason : medical clearance Blood Pressure : / mmHG Vent. Rate : 061 BPM Atrial Rate : 061 BPM P-R Int : 170 ms QRS Dur : 088 ms QT Int : 404 ms P-R-T Axes : 066 073 054 degrees QTc Int : 406 ms Normal sinus rhythm Normal ECG When compared with ECG of 10-NOV-2021 19:14, No significant change was found Referred By: Esvin Bynum Electronically Signed By:WAQAS LEMUS
[2021-11-25 02:34] VITALS: BP 106/75; PULSE 80; RESP 16; TEMP 36.3; O2SAT 98
--- NOTE | 2021-11-25 05:37 | PC.NURSE ---
Patient slept through the night, no distress observed/reported, medication compliant, disposition per [facility] is section 12 inpatient bed search, no update on bed search, behavior appropriate and non concerning, VSS, will continue to monitor.
--- NOTE | 2021-11-25 07:45 | PC.NURSE ---
patient appears to remain asleep at present respirations are even and unlabored patient appears in no distress
--- NOTE | 2021-11-25 09:42 | PHA.MEDREC ---
Pharmacy Consult ? Medication Reconciliation Pharmacy has completed the medication reconciliation.
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
[2021-11-25 10:10] VITALS: BP 105/59; PULSE 56; RESP 16; TEMP 36.8; O2SAT 96
[2021-11-25 10:12] LABS: COVID-19 Test Negative (Negative); IDNOW Serial# 55D5AD1C
[2021-11-25] MEDS: risperiDONE 2 MG TABLET PO ×2 (10:16→19:41)
[2021-11-25] MEDS: Docusate Sodium 100 MG CAPSULE PO ×2 (10:16→19:41)
[2021-11-25 19:37] VITALS: BP 119/63; PULSE 73; RESP 18; TEMP 37.1; O2SAT 95
[2021-11-25] MEDS: hydrOXYzine HCL 25 MG TABLET PO (19:41)
[2021-11-25] MEDS: Prazosin HCL 1 MG CAPSULE PO (19:41)
[2021-11-25] MEDS: diphenhydrAMINE HCL 25 MG TABLET 50 MG PO (22:52)
[2021-11-26 06:38] VITALS: BP 110/60; PULSE 59; RESP 18; TEMP 36.9; O2SAT 98
--- NOTE | 2021-11-26 07:22 | PC.NURSE ---
Patient slept through the night, no distress observed/reported, behavior non concerning, N section 12 inpatient bed search, VSS, medication compliant, will continue to monitor.
--- NOTE | 2021-11-26 07:38 | PC.NURSE ---
patient appears to remain asleep at present respirations are even and unlabored patient appears in no distress.
[2021-11-26] MEDS: Docusate Sodium 100 MG CAPSULE PO (08:33)
[2021-11-26] MEDS: risperiDONE 2 MG TABLET PO ×2 (08:33→19:50)
[2021-11-26 10:21] VITALS: BP 111/60; PULSE 67; RESP 18; TEMP 36.6
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
[2021-11-26] MEDS: Prazosin HCL 1 MG CAPSULE PO (19:50)
[2021-11-26] MEDS: hydrOXYzine HCL 25 MG TABLET PO (19:50)
[2021-11-26 19:53] VITALS: BP 125/70; PULSE 80; TEMP 36.4; O2SAT 96
[2021-11-26] MEDS: LORazepam 1 MG TABLET PO (20:34)
[2021-11-26] MEDS: OLANZapine 5 MG TABLET PO (20:34)
[2021-11-26] MEDS: hydrOXYzine HCL 50 MG TABLET PO (20:34)
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
[2021-11-27 09:01] LABS: Alanine Aminotransferase 9 U/L (0-40); Albumin Level 4.5 g/dL (3.5-5.0); Alkaline Phosphatase 56 U/L (39-117); Anion Gap 14 (12-20); Aspartate Amino Transferase 15 U/L (5-37); Bilirubin Total 0.5 mg/dL (0.0-1.0); Blood Urea Nitrogen 19 mg/dL (9-16); Calcium 9.5 mg/dL (8.4-10.2); Carbon Dioxide 25 mmol/L (22-29); Chloride 105 mmol/L (96-108); Cholesterol 204 mg/dL; Creatinine Clr Calc Pharmacy 85.7; Estimated Glomerular Filt Rate > 60; Glucose Fasting 98 mg/dL (60-99); HDL Cholesterol 55 mg/dL; LDL Cholesterol Calculated 137 mg/dl; Potassium 4.4 mmol/L (3.3-5.1); Sodium 140 mmol/L (135-145); Total Protein 7.3 g/dL (6.5-8.0); Triglycerides 63 mg/dL
[2021-11-27 09:23] LABS: Estimated Average Glucose 105 mg/dL; Hemoglobin A1C 130.6714 umol/L; Hemoglobin A1c % 5.3 %; Thyroid Stimulating Hormone 1.74 uIU/mL (0.32-4.0)
[2021-11-27 09:30] VITALS: BP 126/71; PULSE 68; RESP 18; TEMP 36.7; O2SAT 96
[2021-11-27 09:35] LABS: Folate 10.9 ng/mL (> or = 4.0); Vitamin B12 369 pg/mL (200-900)
[2021-11-27] MEDS: risperiDONE 2 MG TABLET PO (09:44)
[2021-11-27] MEDS: Docusate Sodium 100 MG CAPSULE PO ×2 (09:44→21:44)
--- NOTE | 2021-11-27 13:03 | MHC.CLN ---
NUTRITION DIET=REGULAR. BMI=20.0; 88% OF IBW. REVIEW OF WEIGHT HX SHOWS WEIGHT STABLE X 1 YEAR. PATIENT CONFIRMED THAT WEIGHT HAS BEEN STABLE. REPORTS THAT EATING WELL AND DOES NOT WANT SUPPLEMENT. WEIGHT APPEARS TO BE AT BASELINE. NO NEW NUTRITION INTERVENTIONS. RD TO FOLLOW WEEKLY.
[2021-11-27] MEDS: Paliperidone ER 9 MG TAB.ER.24 PO (15:55)
[2021-11-27 21:44] VITALS: BP 118/72; PULSE 73; RESP 18; TEMP 36.8; O2SAT 95
[2021-11-27] MEDS: hydrOXYzine HCL 50 MG TABLET PO (21:44)
[2021-11-27] MEDS: LORazepam 1 MG TABLET PO (21:44)
[2021-11-27] MEDS: Prazosin HCL 1 MG CAPSULE PO (21:44)
[2021-11-27] MEDS: OLANZapine 5 MG TABLET PO (21:44)
--- NOTE | 2021-11-28 09:24 | P.PNPSI_ITS ---
Subjective Subjective Date of Service: 11/28/21 Reason For Visit: Psychosis Subjective Notes: Pink Warning Interim History: I spoke with pt this morning, he says he is still interested in BALDERRAMA. Im feeling good. I slept good. Denies AH or racing thoughts while in the hospital but he says sx are worse at home. Later says I feel agitated, unsure why. Denies SI/ SIB/HI. Also later during interview pt says right now it feels like my thoughts are blocked, I cant express myself right. Appears disorganized during interview. Eating well. Medication Compliance: Yes Side effects from medications: No Attending Groups: Intermittent Review of Systems Acute medical concerns: No Medical Review of Systems: unchanged Mental Status Exam Mental Status Exam Narrative: Appearance: thin, casually groomed, fair hygiene in NAD Behavior:cooperative psychomotor: no agitation or retardation noted Speech:clear, normal rate/rhythm/volume, spontaneous Thought process:linear Thought content:hearing voices, feeling anxious Mood: agitated Affect: congruent SI:none HI:none VH/AH:voices telling him that he will be killed Delusions:paranoia Insight/judgment:fair x 2. Memory/cog: alert, oriented x 3. Diagnostics Vital Signs (24Hr): Vital Signs - 24 hr 11/27/21 09:30 11/27/21 21:44 Temperature 98.0 F 98.2 F Pulse Rate 68 73 Respiratory Rate 18 18 Blood Pressure 126/71 118/72 Pulse Oximetry 96 95 Oxygen Delivery Method Room Air Room Air BMI result Body Mass Index 20.0 Labs Results: 11/23/21 20:27 11/27/21 08:24 Labs: Laboratory Results - last 48 hr 11/27/21 11/27/21 11/27/21 08:24 08:24 08:24 Sodium 140 Potassium 4.4 D Chloride 105 Carbon Dioxide 25 Anion Gap 14 BUN 19 H Creatinine 1.04 Estim Creat Clear Calc 85.7 Estimated GFR > 60 Fasting Glucose 98 Estimat Average Glucose 105 Hemoglobin A1c % 5.3 Calcium 9.5 Total Bilirubin 0.5 AST 15 ALT 9 Alkaline Phosphatase 56 Total Protein 7.3 Albumin 4.5 Triglycerides 63 Cholesterol 204 D LDL Cholesterol, Calc 137 HDL Cholesterol 55 Vitamin B12 369 Folate 10.9 TSH 1.74 Medications Medications Current Medications Acetaminophen (Acetaminophen 325 Mg Tablet) 650 mg PO Q6H PRN PRN Reason: Headache/Pain Mild Scale (1-3) Al Hydroxide/Mg Hydroxide (Magnesium Hydrox/Alum Hydrox 30 Ml Oral.Susp) 30 ml PO Q6H PRN PRN Reason: Heartburn/Nausea Docusate Sodium (Docusate Sodium 100 Mg Capsule) 100 mg PO BID REGINE Last Admin: 11/27/21 21:44 Dose: 100 mg Hydroxyzine HCl (Hydroxyzine Hcl 50 Mg Tablet) 50 mg PO Q6H PRN PRN Reason: anxiety Last Admin: 11/27/21 21:44 Dose: 50 mg Lorazepam (Lorazepam 1 Mg Tablet) 1 mg PO Q6H PRN PRN Reason: agitation Last Admin: 11/27/21 21:44 Dose: 1 mg Magnesium Hydroxide (Milk Of Magnesia 30 Ml Oral.Susp) 30 ml PO DAILY PRN PRN Reason: Constipation Olanzapine (Olanzapine 5 Mg Tablet) 5 mg PO Q6H PRN PRN Reason: agitation, anxiety Last Admin: 11/27/21 21:44 Dose: 5 mg Paliperidone (Paliperidone Er 9 Mg Tab.Er.24) 9 mg PO DAILY REGINE Last Admin: 11/27/21 15:55 Dose: 9 mg Prazosin HCl (Prazosin Hcl 1 Mg Capsule) 1 mg PO BEDTIME REGINE; Protocol Last Admin: 11/27/21 21:44 Dose: 1 mg Trazodone HCl (Trazodone Hcl 50 Mg Tablet) 50 mg PO BEDTIME PRN PRN Reason: Insomnia Allergies Allergies Allergy/AdvReac Type Severity Reaction Status Date / Time bee pollen [bee stings] Allergy Difficulty Verified 11/05/21 09:30 Breathing Assessment & Plan Assessment & Plan (1) Schizophrenia: Status: Acute Code(s): F20.9 - Schizophrenia, unspecified Plan Mr. Cabrera is a 21 year-old male with hx of schizophrenia. He was discharged from about one week ago. Stopped taking risperidone which was helpful for him. He agrees to have BALDERRAMA of paliperidone. Will start paliperidone and if tolerated, will give BALDERRAMA on Tuesday. PLAN 1. Admit to M3, cv, 3 day, 15 minutes 2. start paliperidone 6mg po daily, plan to do BALDERRAMA if tolerated. 3. Aftercare planning. I spent minutes with the patient and/or on the patient floor today, greater than?50% of which was spent counseling/coordinating care. Patient educated on: medication risk/benefits and therapeutic strategies Reason for contiued inpatient stay Substantial Risk for: inability to function, rapid decompensation and med/psych decompensation
[2021-11-28 09:30] VITALS: BP 121/66; PULSE 76; RESP 18; TEMP 37.6; O2SAT 96
[2021-11-28] MEDS: Paliperidone ER 9 MG TAB.ER.24 PO (09:47)
[2021-11-28] MEDS: Docusate Sodium 100 MG CAPSULE PO ×2 (09:47→19:54)
[2021-11-28 19:54] VITALS: BP 117/66; PULSE 73; RESP 18; TEMP 36.7; O2SAT 97
[2021-11-28] MEDS: OLANZapine 5 MG TABLET PO (19:54)
[2021-11-28] MEDS: Prazosin HCL 1 MG CAPSULE PO (19:54)
[2021-11-28] MEDS: hydrOXYzine HCL 50 MG TABLET PO (19:54)
[2021-11-28] MEDS: LORazepam 1 MG TABLET PO (19:55)
[2021-11-28] MEDS: Ibuprofen 400 MG TABLET PO (19:57)
[2021-11-29 09:15] VITALS: BP 118/63; PULSE 74; RESP 16; TEMP 37.1; O2SAT 94
[2021-11-29] MEDS: Ibuprofen 400 MG TABLET PO (09:18)
[2021-11-29] MEDS: Paliperidone ER 9 MG TAB.ER.24 PO (09:19)
[2021-11-29] MEDS: hydrOXYzine HCL 50 MG TABLET PO (09:19)
[2021-11-29] MEDS: Docusate Sodium 100 MG CAPSULE PO ×2 (09:19→20:38)
--- NOTE | 2021-11-29 10:54 | HO.PSYCHPN ---
Subjective Subjective Date of Service: 11/29/21 Reason For Visit: Psychosis Subjective Notes: Pink Warning and Conditional Voluntary Healthcare Proxy: No Guardianship: No Medical Problems Affecting Mental Status: No Interim History: Pt says he feels better today, no headache. Says he spoke to his mom about the BALDERRAMA, im better off staying on the pills. Says he will be adherent because my mom is gonna be giving me the pills. Mood is good. Thoughts are still blocked but I feel better. Denies depression. Still has anxiety. Sleep is good. No questions or concerns. Denies SI/SIB/HI, feels safe. Medication Compliance: Yes Side effects from medications: No Attending Groups: Yes Review of Systems Acute medical concerns: No Medical Review of Systems: unchanged Mental Status Exam Mental Status Exam Narrative: Appearance: thin, casually groomed, fair hygiene in NAD Behavior:cooperative psychomotor: no agitation or retardation noted Speech:clear, normal rate/rhythm/volume, spontaneous Thought process:linear Thought content:hearing voices, feeling anxious Mood: better Affect: congruent SI:none HI:none VH/AH:voices telling him that he will be killed Delusions:paranoia Insight/judgment:fair x 2. Memory/cog: alert, oriented x 3. Diagnostics Vital Signs (24Hr): Vital Signs - 24 hr 11/28/21 19:54 11/29/21 09:15 Temperature 98.1 F 98.7 F Pulse Rate 73 74 Respiratory Rate 18 16 Blood Pressure 117/66 118/63 Pulse Oximetry 97 94 Oxygen Delivery Method Room Air Room Air BMI result Body Mass Index 20.0 Labs Results: 11/23/21 20:27 11/27/21 08:24 Medications Medications Current Medications Acetaminophen (Acetaminophen 325 Mg Tablet) 650 mg PO Q6H PRN PRN Reason: Headache/Pain Mild Scale (1-3) Al Hydroxide/Mg Hydroxide (Magnesium Hydrox/Alum Hydrox 30 Ml Oral.Susp) 30 ml PO Q6H PRN PRN Reason: Heartburn/Nausea Docusate Sodium (Docusate Sodium 100 Mg Capsule) 100 mg PO BID REGINE Last Admin: 11/29/21 09:19 Dose: 100 mg Hydroxyzine HCl (Hydroxyzine Hcl 50 Mg Tablet) 50 mg PO Q6H PRN PRN Reason: anxiety Last Admin: 11/29/21 09:19 Dose: 50 mg Ibuprofen (Ibuprofen 400 Mg Tablet) 400 mg PO Q6H PRN PRN Reason: headache Last Admin: 11/29/21 09:18 Dose: 400 mg Lorazepam (Lorazepam 1 Mg Tablet) 1 mg PO Q6H PRN PRN Reason: agitation Last Admin: 11/28/21 19:55 Dose: 1 mg Magnesium Hydroxide (Milk Of Magnesia 30 Ml Oral.Susp) 30 ml PO DAILY PRN PRN Reason: Constipation Olanzapine (Olanzapine 5 Mg Tablet) 5 mg PO Q6H PRN PRN Reason: agitation, anxiety Last Admin: 11/28/21 19:54 Dose: 5 mg Paliperidone (Paliperidone Er 9 Mg Tab.Er.24) 9 mg PO DAILY REGINE Last Admin: 11/29/21 09:19 Dose: 9 mg Prazosin HCl (Prazosin Hcl 1 Mg Capsule) 1 mg PO BEDTIME REGINE; Protocol Last Admin: 11/28/21 19:54 Dose: 1 mg Trazodone HCl (Trazodone Hcl 50 Mg Tablet) 50 mg PO BEDTIME PRN PRN Reason: Insomnia Allergies Allergies Allergy/AdvReac Type Severity Reaction Status Date / Time bee pollen [bee stings] Allergy Difficulty Verified 11/05/21 09:30 Breathing Assessment & Plan Assessment & Plan (1) Schizophrenia: Status: Acute Code(s): F20.9 - Schizophrenia, unspecified Plan Mr. Cabrera is a 21 year-old male with hx of schizophrenia. He was discharged from about one week ago. Stopped taking risperidone which was helpful for him. He agrees to have BALDERRAMA of paliperidone. Will start paliperidone and if tolerated, will give BALDERRAMA on Tuesday. PLAN 1. Admit to , , 3 day, 15 minutes 2. start paliperidone 6mg po daily, plan to do BALDERRAMA if tolerated. 3. Aftercare planning. 11/28: No changes, monitor paliperidone for benefit 11/29: pt says his thoughts are clearer, no med changes, reluctant to trial BALDERRAMA, education provided I spent minutes with the patient and/or on the patient floor today, greater than?50% of which was spent counseling/coordinating care. Patient educated on: medication risk/benefits Reason for contiued inpatient stay Substantial Risk for: inability to function, rapid decompensation and med/psych decompensation
[2021-11-29 18:00] VITALS: BP 120/72; PULSE 63; RESP 18; TEMP 36.6; O2SAT 98
[2021-11-29] MEDS: Prazosin HCL 1 MG CAPSULE PO (20:37)
[2021-11-30 09:00] VITALS: BP 130/67; PULSE 78; RESP 18; TEMP 36.8; O2SAT 98
[2021-11-30] MEDS: Docusate Sodium 100 MG CAPSULE PO ×2 (09:14→20:28)
[2021-11-30] MEDS: Paliperidone ER 9 MG TAB.ER.24 PO (09:14)
--- NOTE | 2021-11-30 12:55 | HO.PSYCHPN ---
Subjective Subjective Date of Service: 11/30/21 Reason For Visit: Psychosis Subjective Notes: Pink Warning, Conditional Voluntary and 3 Day Healthcare Proxy: No Guardianship: No Medical Problems Affecting Mental Status: No Interim History: Says he wants to discharge Tuesday, TDN up then, worries about paying rent, I gotta help mom with rent. 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 Says Im feeling better. Sleep was good. Denies depression, the pills are working. Declines BALDERRAMA, I want to stick to the pills because he is worried about if its not gonna work and i'll go back to the voices, says the pills have been working and so he does not want to risk trialing anything else. Medication Compliance: Yes Side effects from medications: No Attending Groups: Intermittent Review of Systems Acute medical concerns: No Medical Review of Systems: unchanged Mental Status Exam Mental Status Exam Narrative: Appearance: thin, casually groomed, fair hygiene in NAD Behavior:cooperative psychomotor: no agitation or retardation noted Speech:clear, normal rate/rhythm/volume, spontaneous Thought process:linear Thought content:hearing voices, feeling anxious Mood: better Affect: congruent SI:none HI:none VH/AH:voices telling him that he will be killed Delusions:paranoia Insight/judgment:fair x 2. Memory/cog: alert, oriented x 3. Diagnostics Vital Signs (24Hr): Vital Signs - 24 hr 11/29/21 18:00 11/30/21 09:00 Temperature 97.8 F 98.3 F Pulse Rate 63 78 Respiratory Rate 18 18 Blood Pressure 120/72 130/67 Pulse Oximetry 98 98 Oxygen Delivery Method Room Air Room Air BMI result Body Mass Index 20.0 Labs Results: 11/23/21 20:27 11/27/21 08:24 Medications Medications Current Medications Acetaminophen (Acetaminophen 325 Mg Tablet) 650 mg PO Q6H PRN PRN Reason: Headache/Pain Mild Scale (1-3) Al Hydroxide/Mg Hydroxide (Magnesium Hydrox/Alum Hydrox 30 Ml Oral.Susp) 30 ml PO Q6H PRN PRN Reason: Heartburn/Nausea Docusate Sodium (Docusate Sodium 100 Mg Capsule) 100 mg PO BID REGINE Last Admin: 11/30/21 09:14 Dose: 100 mg Guaifenesin/Dextromethorphan (Guaifenesin Dm 600/30 1 Tab Tab.Er.12h) 1 tab PO BID PRN PRN Reason: congestion Hydroxyzine HCl (Hydroxyzine Hcl 50 Mg Tablet) 50 mg PO Q6H PRN PRN Reason: anxiety Last Admin: 11/29/21 09:19 Dose: 50 mg Ibuprofen (Ibuprofen 400 Mg Tablet) 400 mg PO Q6H PRN PRN Reason: headache Last Admin: 11/29/21 09:18 Dose: 400 mg Lorazepam (Lorazepam 1 Mg Tablet) 1 mg PO Q6H PRN PRN Reason: agitation Last Admin: 11/28/21 19:55 Dose: 1 mg Magnesium Hydroxide (Milk Of Magnesia 30 Ml Oral.Susp) 30 ml PO DAILY PRN PRN Reason: Constipation Olanzapine (Olanzapine 5 Mg Tablet) 5 mg PO Q6H PRN PRN Reason: agitation, anxiety Last Admin: 11/28/21 19:54 Dose: 5 mg Paliperidone (Paliperidone Er 9 Mg Tab.Er.24) 9 mg PO DAILY REGINE Last Admin: 11/30/21 09:14 Dose: 9 mg Prazosin HCl (Prazosin Hcl 1 Mg Capsule) 1 mg PO BEDTIME REGINE; Protocol Last Admin: 11/29/21 20:37 Dose: 1 mg Trazodone HCl (Trazodone Hcl 50 Mg Tablet) 50 mg PO BEDTIME PRN PRN Reason: Insomnia Allergies Allergies Allergy/AdvReac Type Severity Reaction Status Date / Time bee pollen [bee stings] Allergy Difficulty Verified 11/05/21 09:30 Breathing Assessment & Plan Assessment & Plan (1) Schizophrenia: Status: Acute Code(s): F20.9 - Schizophrenia, unspecified Plan Mr. Cabrera is a 21 year-old male with hx of schizophrenia. He was discharged from about one week ago. Stopped taking risperidone which was helpful for him. He agrees to have BALDERRAMA of paliperidone. Will start paliperidone and if tolerated, will give BALDERRAMA on Tuesday. PLAN 1. Admit to M3, cv, 3 day, 15 minutes 2. start paliperidone 6mg po daily, plan to do BALDERRAMA if tolerated. 3. Aftercare planning. 11/28: No changes, monitor paliperidone for benefit 11/29: pt says his thoughts are clearer, no med changes, reluctant to trial BALDERRAMA, education provided 11/30: Declines BALDERRAMA I spent minutes with the patient and/or on the patient floor today, greater than?50% of which was spent counseling/coordinating care. Patient educated on: medication risk/benefits Reason for contiued inpatient stay Substantial Risk for: inability to function, rapid decompensation and med/psych decompensation
[2021-11-30 20:20] VITALS: BP 122/68; PULSE 65; RESP 16; TEMP 36.7; O2SAT 98
[2021-11-30] MEDS: Prazosin HCL 1 MG CAPSULE PO (20:28)
[2021-12-01] MEDS: Paliperidone ER 9 MG TAB.ER.24 PO (08:28)
[2021-12-01] MEDS: Docusate Sodium 100 MG CAPSULE PO (08:28)
[2021-12-01 08:44] VITALS: BP 110/64; PULSE 61; RESP 16; TEMP 36.7; O2SAT 97
--- NOTE | 2021-12-01 12:32 | P.PNPSI_ITS ---
Subjective Subjective Date of Service: 12/01/21 Reason For Visit: Psychosis Subjective Notes: 3 Day Interim History: Pt reports he is hearing less voices. He reports he is willing to do BALDERRAMA but if able to get oral pills just in case AH come back. Pt reports sleeping and eating well. He denies SI/HI. He signed 3 day, up tomorrow. Will give 1st loading dose. Medication Compliance: Yes Review of Systems Constitutional: Reports no additional constitutional complaints Eyes: Reports no additional eye complaints Denies dizziness Cardiovascular: Reports no additional cardiovascular complaints Respiratory: Reports as per HPI Gastrointestinal: Reports no additional gastrointestinal complaints Musculoskeletal: Reports no additional musculoskeletal complaints Skin/Breast: Denies rash Reports system reviewed and no additional complaints, except as documented, Denies dizziness and Denies Sensory deficit (Neuro) Psychiatric: Denies anxiety Mental Status Exam Mental Status Exam Narrative: Appearance: thin, casually groomed, fair hygiene in NAD Behavior:cooperative psychomotor: no agitation or retardation noted Speech:clear, normal rate/rhythm/volume, spontaneous Thought process:linear Thought content:hearing voices, feeling anxious Mood: better Affect: congruent SI:none HI:none VH/AH:voices telling him that he will be killed Delusions:paranoia Insight/judgment:fair x 2. Memory/cog: alert, oriented x 3. Diagnostics Vital Signs (24Hr): Vital Signs - 24 hr 11/30/21 20:20 12/01/21 08:44 Temperature 98.1 F 98.1 F Pulse Rate 65 61 Respiratory Rate 16 16 Blood Pressure 122/68 110/64 Pulse Oximetry 98 97 Oxygen Delivery Method Room Air Room Air BMI result Body Mass Index 20.0 Labs Results: 11/23/21 20:27 11/27/21 08:24 Medications Medications Current Medications Acetaminophen (Acetaminophen 325 Mg Tablet) 650 mg PO Q6H PRN PRN Reason: Headache/Pain Mild Scale (1-3) Al Hydroxide/Mg Hydroxide (Magnesium Hydrox/Alum Hydrox 30 Ml Oral.Susp) 30 ml PO Q6H PRN PRN Reason: Heartburn/Nausea Docusate Sodium (Docusate Sodium 100 Mg Capsule) 100 mg PO BID [facility] Last Admin: 12/01/21 08:28 Dose: 100 mg Guaifenesin/Dextromethorphan (Guaifenesin Dm 600/30 1 Tab Tab.Er.12h) 1 tab PO BID PRN PRN Reason: congestion Hydroxyzine HCl (Hydroxyzine Hcl 50 Mg Tablet) 50 mg PO Q6H PRN PRN Reason: anxiety Last Admin: 11/29/21 09:19 Dose: 50 mg Ibuprofen (Ibuprofen 400 Mg Tablet) 400 mg PO Q6H PRN PRN Reason: headache Last Admin: 11/29/21 09:18 Dose: 400 mg Magnesium Hydroxide (Milk Of Magnesia 30 Ml Oral.Susp) 30 ml PO DAILY PRN PRN Reason: Constipation Olanzapine (Olanzapine 5 Mg Tablet) 5 mg PO Q6H PRN PRN Reason: agitation, anxiety Last Admin: 11/28/21 19:54 Dose: 5 mg Paliperidone (Paliperidone Er 9 Mg Tab.Er.24) 9 mg PO DAILY REGINE Last Admin: 12/01/21 08:28 Dose: 9 mg Prazosin HCl (Prazosin Hcl 1 Mg Capsule) 1 mg PO BEDTIME REGINE; Protocol Last Admin: 11/30/21 20:28 Dose: 1 mg Trazodone HCl (Trazodone Hcl 50 Mg Tablet) 50 mg PO BEDTIME PRN PRN Reason: Insomnia Allergies Allergies Allergy/AdvReac Type Severity Reaction Status Date / Time bee pollen [bee stings] Allergy Difficulty Verified 11/05/21 09:30 Breathing Assessment & Plan Assessment & Plan (1) Schizophrenia: Status: Acute Code(s): F20.9 - Schizophrenia, unspecified Plan Mr. Cabrera is a 21 year-old male with hx of schizophrenia. He was discharged from about one week ago. Stopped taking risperidone which was helpful for him. He agrees to have BALDERRAMA of paliperidone. Will start paliperidone and if tolerated, will give BALDERRAMA on Tuesday. PLAN 1. Admit to , , 3 day, 15 minutes 2. start paliperidone 6mg po daily, plan to do BALDERRAMA if tolerated. 3. Aftercare planning. 11/28: No changes, monitor paliperidone for benefit 11/29: pt says his thoughts are clearer, no med changes, reluctant to trial BALDERRAMA, education provided 11/30: Declines BALDERRAMA 12/01 agrees to get BALDERRAMA if he can have oral paliperidone just in case injection doesn't work. d/c tomorrow. I spent minutes with the patient and/or on the patient floor today, greater than?50% of which was spent counseling/coordinating care. Reason for contiued inpatient stay Substantial Risk for: inability to function
[2021-12-01] MEDS: Paliperidone Palmitate 234 MG/1.5 ML SYRINGE IM (13:51)
[2021-12-01] MEDS: hydrOXYzine HCL 50 MG TABLET PO (20:20)
[2021-12-01] MEDS: traZODone HCL 50 MG TABLET PO (20:20)
[2021-12-01] MEDS: Prazosin HCL 1 MG CAPSULE PO (20:20)
[2021-12-01 20:23] VITALS: BP 123/71; PULSE 75; TEMP 36.7; O2SAT 97
[2021-12-02] MEDS: Paliperidone ER 9 MG TAB.ER.24 PO (08:30)
[2021-12-02] MEDS: Docusate Sodium 100 MG CAPSULE PO (08:30)
[2021-12-02 08:50] VITALS: BP 115/72; PULSE 82; RESP 16; TEMP 36.6; O2SAT 98
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
== END 2021-12-02 11:15 | disposition home health service (06) | DRG 750 ==
LOC: HO.ED 11-25 09:35 → HO.PADLT16 11-26 10:51
PROVIDERS: Emergency Medicine; Admitting Provider Psychiatry & Neurology Psychiatry; Emergency Provider Emergency Medicine; Visit Provider Social Worker
DX: F20.9 Schizophrenia, unspecified (principal); Z20.822 Contact with and (suspected) exposure to COVID-19; Z91.030 Bee allergy status; Z79.899 Other long term (current) drug therapy
CPT/HCPCS: 36415; 80053; 80061; 80143; 80179; 80307; 82077; 82607; 82746; 83036; 84443; 85025; 87635; 93005; 99285; J2426; Q0163

== ENCOUNTER 2023-09-16 18:50 | Inpatient (IN) | payer MEDICAID, OTHER, SELFPAY ==
[2023-09-16 18:57] VITALS: BMI 23.9
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
[2023-09-17 02:44] VITALS: BP 121/90; PULSE 57; TEMP 36.6; O2SAT 98
[2023-09-17 04:37] LABS: Amphetamine Screen Urine Not Detected (Not Detect); Barbiturates, Urine Not Detected (Not Detect); Benzodiazepines Screen Urine Not Detected (Not Detect); Buprenorphine Scr Not Detected (Not Detect); Cannabinoid Screen Urine POSITIVE (Not Detect); Cocaine Screen Urine Not Detected (Not Detect); Fentanyl, urine Not Detected (Not Detect); Methadone Screen, Urine Not Detected (Not Detect); Opiate Screen Urine Not Detected (Not Detect); Oxycodone Screen Urine Not Detected (Not Detect); Phencyclidine Screen Urine Not Detected (Not Detect)
--- NOTE | 2023-09-17 07:06 | PC.NURSE ---
Assumed care of patient at 0645. Patient is observed resting quietly in their bed. No unsafe behaviors observed at this time. No signs of distress observed, breathing is even and unlabored.
--- NOTE | 2023-09-17 07:12 | PC.NURSE ---
Patient slept intermittently for little over 4 hours, patient agreed to assess vital signs and provided urine sample, thought content paranoid secondary non adherent to his medication, care consult ordered pending evaluation, pending blood work, VSS, psych consult orderd to review medication, will continue to monitor
--- NOTE | 2023-09-17 07:33 | MHC.EDTECH ---
Patient refused vitals and became agitated when attempted to take them
--- NOTE | 2023-09-17 08:40 | MHC.EDTECH ---
Patient refused blood work RN aware
[2023-09-17 09:55] VITALS: RESP 18
--- NOTE | 2023-09-17 11:53 | MHC.EDTECH ---
Went in to talk with patient and introduce my self tried getting a set of vital but patient refused. Patient states Im not sick and there is no reason for vital or blood drawn so stop asking me, I just want to go home and get my stuff .
--- NOTE | 2023-09-17 15:34 | MHC.EDTECH ---
Patient refused vitals ,rn aware .
[2023-09-17 16:11] VITALS: RESP 18
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
[2023-09-17] MEDS: LORazepam 1 MG TABLET PO (17:04)
[2023-09-17 17:10] LABS: MANUAL DIFF FLAG NO
[2023-09-17 17:12] LABS: Basophils Percent Auto 0.4 % (0-2); Eosinophils Absolute Auto 0.3 X10*3/uL (0.0-0.4); Eosinophils Percent Auto 2.6 % (0-4); Hematocrit 43.2 % (42.0-52.0); Hemoglobin 15.3 g/dl (14.0-18.0); Imm Gran Abs Auto 0.04 X10*3/uL (0.00-0.03); Imm Gran Pct Auto 0.4 % (0.0-0.4); Lymphocytes Absolute Auto 3.6 X10*3/uL (1.2-4.9); Lymphocytes Percent Auto 32.8 % (20-40); Mean Corpuscular HGB Conc 35.4 g/dl (31.0-36.0); Mean Corpuscular Hemoglobin 30.9 pg (27.0-33.0); Mean Corpuscular Volume 87.3 fL (80.0-98.0); Mean Platelet Volume 10.4 fL (9.4-12.4); Monocytes Absolute Auto 0.8 X10*3/uL (0.1-1.2); Monocytes Percent Auto 6.9 % (2-11); Neutrophils Absolute Auto 6.2 x10*3/uL (2.0-8.3); Neutrophils Percent Auto 56.9 % (45-73); Platelet Count 308 X10*3/uL (160-400); Red Blood Count 4.95 X10*6/uL (4.60-5.80); Red Cell Distribution Width 12.2 % (11.0-16.0); White Blood Count 10.8 X10*3/uL (4.8-10.8)
[2023-09-17 17:20] VITALS: BP 109/78; PULSE 56; RESP 18; TEMP 36.6; O2SAT 99
--- NOTE | 2023-09-17 17:21 | MHC.EDTECH ---
Patient did allow this pct to draw labs ,rn aware .
[2023-09-17] MEDS: hydrOXYzine HCL 50 MG TABLET PO (17:29)
[2023-09-17 17:39] LABS: Ethanol < 10 mg/dL
[2023-09-17 17:41] LABS: Alanine Aminotransferase 7 U/L (0-40); Albumin Level 4.7 g/dL (3.5-5.0); Alkaline Phosphatase 51 U/L (39-117); Anion Gap 13 (12-20); Aspartate Amino Transferase 14 U/L (5-37); Blood Urea Nitrogen 17 mg/dL (9-16); Calcium 9.7 mg/dL (8.4-10.2); Carbon Dioxide 29 mmol/L (22-29); Chloride 101 mmol/L (96-108); Creatinine Clr Calc Pharmacy 94.5; Estimated Glomerular Filt Rate > 60; Glucose Random 82 mg/dL (60-115); Potassium 3.6 mmol/L (3.3-5.1); Sodium 139 mmol/L (135-145); Total Protein 7.3 g/dL (6.5-8.0)
[2023-09-18 06:21] VITALS: RESP 16
--- NOTE | 2023-09-18 15:24 | MHC.EDTECH ---
Patient refused vitals.
[2023-09-18 18:28] VITALS: BP 106/65; PULSE 56; RESP 18; TEMP 36.1; O2SAT 99
[2023-09-18] MEDS: LORazepam 1 MG TABLET PO (19:25)
[2023-09-18] MEDS: QUEtiapine Fumarate 50 MG TABLET PO (19:25)
--- NOTE | 2023-09-18 19:54 | PC.NURSE ---
patient appears to remain at rest presently periodically heading to restroom appears withdrawn but engageable patient appears in no distress.
--- NOTE | 2023-09-19 00:42 | PC.NURSE ---
patient came out, used restroom and asked if he had had a visitor while he was sleeping, t/w conferred he did not.
[2023-09-19 02:50] VITALS: BP 120/80; PULSE 63; RESP 16; TEMP 36.4; O2SAT 100; BMI 19.6
[2023-09-19 06:00] VITALS: RESP 16
--- NOTE | 2023-09-19 07:54 | PC.NURSE ---
Assumed care of patient at 0645, patient appears to be in no apparent distress this am, ambulating with steady gait around BH pod. Minimally answering questions with one-worded answers. Patient does appear to be suspicious of staff, staying under blanket when in room. Otherwise appears well. refusing urine at this time. Continue plan of care for inpatient bedsearch
--- NOTE | 2023-09-19 11:03 | PC.NURSE ---
Pt walked out of room and exclaimed yall are a bunch of pigs, not letting me outta here and shit . Hernan, PCT attempted to redirect patient, patient ignored Hernan. Now pacing around BH pod, not speaking to staff
--- NOTE | 2023-09-19 15:17 | MHC.CLN ---
NUTRITION CONSULT FOR WEIGHT LOSS. EMR AND WEIGHT HX REVIEWED. PRIOR ADM WEIGHT 11/23/21=54.431 KG. CURRENT WEIGHT 09/16/23=61.235 KG. SHOWS WEIGHT GAIN OF 12.5% X [address] CON[address]ULT [address] IF POOR PO DURING ADM. NO ADDITIONAL NUTRITION INTERVENTIONS AT THIS TIME.
[2023-09-19 15:26] LABS: Estimated Average Glucose 103 mg/dL; Hemoglobin A1c % 5.2 % (<6.0)
--- NOTE | 2023-09-19 16:17 | PC.ADMIT ---
Sebastian was admitted to [facility] at 14:10 from ([facility], etc) on Legal status for treatment of diagnosis.? Precipitant of admission include Behavior/ Issue leading up to ED. Level of consciousness, orientation,? cooperative? Mood is (depressed, euphoric, etc) Affect is ( sad, anxious, irritable, elated, etc) Auditory, visual, tactile, other hallucinations? Appears internally preoccupied? Appears to respond to internal stimuli? Paranoia/ suspiciousness? Delusions (grandeur persecutionother) Thought Process linear? tangential? Circumstantial? Thought blocking? Disorganized? Ideation, plan or intent to harm self or others? Appetite? Recent wt loss or gain? Sleep? Focus? Substance Issues - type? date of last use, complicated withdrawal history (seizures, DTs ect?) Medical Issues? Physical complaint? Goal of admission: Safety Checks
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
[2023-09-19] MEDS: risperiDONE 2 MG TABLET PO (17:24)
[2023-09-19] MEDS: LORazepam 1 MG TABLET PO (17:24)
[2023-09-20 08:00] VITALS: RESP 14
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
[2023-09-20] MEDS: risperiDONE 2 MG TABLET PO ×2 (09:13→19:50)
[2023-09-20] MEDS: hydrOXYzine HCL 25 MG TABLET PO (09:13)
[2023-09-20] MEDS: LORazepam 1 MG TABLET PO (19:51)
[2023-09-20 20:00] VITALS: BP 117/78; PULSE 84; RESP 18; TEMP 36.4; O2SAT 99
[2023-09-21 08:00] VITALS: RESP 18
[2023-09-21] MEDS: risperiDONE 2 MG TABLET PO ×2 (08:34→21:44)
[2023-09-21] MEDS: Paliperidone Palmitate 234 MG/1.5 ML SYRINGE IM (14:38)
[2023-09-21 15:13] LABS: Cholesterol 141 mg/dL (<200); HDL Cholesterol 54 mg/dL (>40); LDL Cholesterol Calculated 54 mg/dL (<100); Triglycerides 168 mg/dL (<150)
[2023-09-21 19:57] LABS: Reflex LDLD? No
[2023-09-21 20:00] VITALS: RESP 20
[2023-09-21] MEDS: LORazepam 1 MG TABLET PO (21:44)
--- NOTE | 2023-09-21 22:32 | HO.PSYCHPN ---
Subjective Subjective Date of Service: 09/21/23 Reason For Visit: Psychotic Interim History: Met with Patient; discussed with team Patient calm, taking medication but focused on discharging because he wants to help his mother since they are moving locations. Discussed the struggles patient is having in the community and though he remains without insight into this psychiatric symptoms, he agrees that the medications help and treatment benefits him; he agreed to sign himself into the hospital and also to get on long-acting injectable which he wanted to start right away. Currently no AH but paranoid delusional thinking remains. He mostly keeps himself, sometimes pacing the licona but remains in good behavioral and impulse control and polite and appropriate with peers and staff. Mental Status Exam Mental Status Exam Narrative: Pt is alert and oriented; behavior is guarded, cautious but also cooperative; patient is not in distress; dressed in hospital attire, closely shaved hair, adequate hygiene; mood is described as guarded and anxious and affect congruent; eye contact appropriate; Speech is normal rate, volume and prosody and not pressured; some psychomotor agitation as he paces licona; thought process is goal directed, logical, though concrete; Thought content is on paranoid delusions, but also treatment; denies any SI/HI. Currently no AH Patients insight impaired but judgment improved. Diagnostics Vital Signs (24Hr): Vital Signs - 24 hr 09/21/23 08:00 09/21/23 20:00 Respiratory Rate 18 20 BMI result Body Mass Index 19.6 Labs 09/17/23 17:05 09/17/23 17:05 Labs: Laboratory Results - last 48 hr 09/21/23 14:37 Triglycerides 168 H Cholesterol 141 LDL Cholesterol, Calc 54 HDL Cholesterol 54 Medications Medications Current Medications Acetaminophen (Acetaminophen 325 Mg Tablet) 650 mg PO Q6H PRN PRN Reason: Headache/Pain Mild Scale (1-3) Al Hydroxide/Mg Hydroxide (Magnesium Hydrox/Alum Hydrox 30 Ml Oral.Susp) 30 ml PO Q6H PRN PRN Reason: Heartburn/Nausea Docusate Sodium (Docusate Sodium 100 Mg Capsule) 100 mg PO BID PRN PRN Reason: constipation Hydroxyzine HCl (Hydroxyzine Hcl 25 Mg Tablet) 25 mg PO Q6H PRN PRN Reason: Anxiety Last Admin: 09/20/23 09:13 Dose: 25 mg Lorazepam (Lorazepam 1 Mg Tablet) 1 mg PO BEDTIME [facility] Last Admin: 09/21/23 21:44 Dose: 1 mg Magnesium Hydroxide (Milk Of Magnesia 30 Ml Oral.Susp) 30 ml PO DAILY PRN PRN Reason: Constipation Nicotine (Nicotine 21 Mg Patch.Td24) 21 mg TRANSDERMA DAILY PRN PRN Reason: nicotine cravings Nicotine Polacrilex (Nicotine Polacrilex 2 Mg Gum) 4 mg BUCCAL Q2H PRN PRN Reason: Nicotine Cravings Olanzapine (Olanzapine 5 Mg Tablet) 5 mg PO TID PRN PRN Reason: agitation Paliperidone Palmitate (Paliperidone Palmitate 234 Mg/1.5 Ml Syringe) 234 mg IM Q30D [facility] Last Admin: 09/21/23 14:38 Dose: 234 mg Paliperidone Palmitate (Paliperidone Palmitate 156 Mg/Ml Syringe) 156 mg IM ONCE ONE Stop: 09/26/23 09:01 Quetiapine Fumarate (Quetiapine Fumarate 50 Mg Tablet) 50 mg PO TID PRN PRN Reason: Insomnia/psychosis Last Admin: 09/18/23 19:25 Dose: 50 mg Risperidone (Risperidone 2 Mg Tablet) 2 mg PO BID [facility] Last Admin: 09/21/23 21:44 Dose: 2 mg Trazodone HCl (Trazodone Hcl 50 Mg Tablet) 50 mg PO BEDTIME MRX1 PRN PRN Reason: Insomnia Allergies Allergies Allergy/AdvReac Type Severity Reaction Status Date / Time bee pollen [bee stings] Allergy Difficulty Verified 09/16/23 19:00 Breathing Assessment & Plan Assessment & Plan (1) Schizophrenia: Status: Acute Code(s): F20.9 - Schizophrenia, unspecified (2) PTSD (post-traumatic stress disorder): Status: Acute Code(s): F43.10 - Post-traumatic stress disorder, unspecified Plan Patient is a 23-year-old male with history of schizophrenia, past psychiatric admissions who was brought to the hospital by police, after being tased due to dangerous behaviors in the neighborhood in the face of worsening AH and delusional thinking, off his medications. Patient is delusional and keeps repeating that he is being gang stalked at his home and that he has been raped at home. He says people in [place] want him to leave the neighborhood and he does not know why. Patient alluded to his neighbor but did not go into details but did say that his neighbor stalks him. Patient also said that he can not eat the food [place]. Care team/ED notes report that patient was brought in by police after he was tased 2 times having made threats in attacked police says they approached; police called because patient was making his neighbor uncomfortable and acting in a bizarre way, staring at kids. Patient's mother reports that he has been screaming inside the house; she says she got a call from the neighbor saying her son was looking at their children in a bizarre way; patient yelled out loud eave me alone or I will kill you... Says been off his medications for at least 3 weeks, smoking cannabis daily; he concurs that he has been smoking cannabis. Patient does not have any insight however while initially ambivalent about medication, patient did agree to start retaking Risperdal. He says that when he left the hospital last time, on medication it was helping him and he was starting to make progress. And was feeling good for few months. He said at some point he stopped making progress. Not clear if he stopped the medication and then stop making progress or vice versa. Although he is willing to take medications again he is worried that it will just work in the hospital and then once he leaves in a different environment his problems will return. Formulation/clinical reasoning; Review of chart indicates that patient does start to do much better once he is on antipsychotic medication, either Risperdal or paliperidone. It also seems that he does relatively well for a while if he stays on the medication. Patient is willing to restart medications now. He was unwilling to sign himself into the hospital, feeling like he needs to move out of [place] as soon as possible. Patient however seems to be willing to reconsider and maybe willing to sign in later. Since coming to the unit he has demonstrated appropriate behaviors and been in impulse control. Hospital course: 09/20 Patient calm, taking medication but focused on discharging because he wants to help his mother since they are moving locations. Discussed the struggles patient is having in the community and though he remains without insight into this psychiatric symptoms, he agrees that the medications help and treatment benefits him; he agreed to sign himself into the hospital and also to get on long-acting injectable which he wanted to start right away. Currently no AH but paranoid delusional thinking remains. He mostly keeps himself, sometimes pacing the [place]icona but remains in good behavioral and impulse control and polite and appropriate with peers and staff. Plan: CV Q 15 minute checks Continue Risperdal 2 mg b.i.d. Start Invega Sustenna 234 mg Q 28 days; will follow-up with 156 mg Patient does not want to be on prazosin Patient educated on: diagnosis, medication risk/benefits and therapeutic strategies Informed Consent: understands, does not understand and further education needed Reason for continued inpatient stay Substantial Risk for: rapid decompensation Time Spent With Patient Time: Total time managing care of this patient today ____ minutes.
[2023-09-22 07:00] VITALS: BMI 20.4
[2023-09-22 08:00] VITALS: BP 125/69; PULSE 71; RESP 16; TEMP 36.4; O2SAT 99
[2023-09-22] MEDS: risperiDONE 2 MG TABLET PO ×2 (08:15→20:02)
--- NOTE | 2023-09-22 09:10 | HO.PSYCHPN ---
Subjective Subjective Date of Service: 09/22/23 Reason For Visit: Psychotic Interim History: Met with patient; discussed with team Patient reports that he is actually feeling better. Says he can tell because he is talking more and more comfortable around other people in the milieu. Denies any AH. As discussed patient placed a 3 day notice and agrees to stay until Tuesday so that he can get his 2nd loading dose of Invega Sustenna and that aftercare can be set up. Mental Status Exam Mental Status Exam Narrative: Pt is alert and oriented; behavior is more relaxed, less guarded, cooperative; patient is not in distress; dressed in hospital attire, closely shaved hair, adequate hygiene; mood is better and affect congruent, more calm more interactive; eye contact appropriate; Speech is normal rate, volume and prosody and not pressured; no psychomotor agitation; thought process is goal directed, logical, though concrete; Thought content is on some paranoid delusions but less so; on treatment and getting back home to his mother; denies any SI/HI. Currently no AH Patients insight impaired but judgment improved. Diagnostics Vital Signs (24Hr): Vital Signs - 24 hr 09/21/23 20:00 Respiratory Rate 20 BMI result Body Mass Index 19.6 Labs 09/17/23 17:05 09/17/23 17:05 Labs: Laboratory Results - last 48 hr 09/21/23 14:37 Triglycerides 168 H Cholesterol 141 LDL Cholesterol, Calc 54 HDL Cholesterol 54 Medications Medications Current Medications Acetaminophen (Acetaminophen 325 Mg Tablet) 650 mg PO Q6H PRN PRN Reason: Headache/Pain Mild Scale (1-3) Al Hydroxide/Mg Hydroxide (Magnesium Hydrox/Alum Hydrox 30 Ml Oral.Susp) 30 ml PO Q6H PRN PRN Reason: Heartburn/Nausea Docusate Sodium (Docusate Sodium 100 Mg Capsule) 100 mg PO BID PRN PRN Reason: constipation Hydroxyzine HCl (Hydroxyzine Hcl 25 Mg Tablet) 25 mg PO Q6H PRN PRN Reason: Anxiety Last Admin: 09/20/23 09:13 Dose: 25 mg Lorazepam (Lorazepam 1 Mg Tablet) 1 mg PO BEDTIME [facility] Last Admin: 09/21/23 21:44 Dose: 1 mg Magnesium Hydroxide (Milk Of Magnesia 30 Ml Oral.Susp) 30 ml PO DAILY PRN PRN Reason: Constipation Nicotine (Nicotine 21 Mg Patch.Td24) 21 mg TRANSDERMA DAILY PRN PRN Reason: nicotine cravings Nicotine Polacrilex (Nicotine Polacrilex 2 Mg Gum) 4 mg BUCCAL Q2H PRN PRN Reason: Nicotine Cravings Olanzapine (Olanzapine 5 Mg Tablet) 5 mg PO TID PRN PRN Reason: agitation Paliperidone Palmitate (Paliperidone Palmitate 234 Mg/1.5 Ml Syringe) 234 mg IM Q30D [facility] Last Admin: 09/21/23 14:38 Dose: 234 mg Paliperidone Palmitate (Paliperidone Palmitate 156 Mg/Ml Syringe) 156 mg IM ONCE ONE Stop: 09/26/23 09:01 Quetiapine Fumarate (Quetiapine Fumarate 50 Mg Tablet) 50 mg PO TID PRN PRN Reason: Insomnia/psychosis Last Admin: 09/18/23 19:25 Dose: 50 mg Risperidone (Risperidone 2 Mg Tablet) 2 mg PO BID [facility] Last Admin: 09/22/23 08:15 Dose: 2 mg Trazodone HCl (Trazodone Hcl 50 Mg Tablet) 50 mg PO BEDTIME MRX1 PRN PRN Reason: Insomnia Allergies Allergies Allergy/AdvReac Type Severity Reaction Status Date / Time bee pollen [bee stings] Allergy Difficulty Verified 09/16/23 19:00 Breathing Assessment & Plan Assessment & Plan (1) Schizophrenia: Status: Acute Code(s): F20.9 - Schizophrenia, unspecified (2) PTSD (post-traumatic stress disorder): Status: Acute Code(s): F43.10 - Post-traumatic stress disorder, unspecified Plan Patient is a 23-year-old male with history of schizophrenia, past psychiatric admissions who was brought to the hospital by police, after being tased due to dangerous behaviors in the neighborhood in the face of worsening AH and delusional thinking, off his medications. Patient is delusional and keeps repeating that he is being gang stalked at his home and that he has been raped at home. He says people in [place] want him to leave the neighborhood and he does not know why. Patient alluded to his neighbor but did not go into details but did say that his neighbor stalks him. Patient also said that he can not eat the food [place]. Care team/ED notes report that patient was brought in by police after he was tased 2 times having made threats in attacked police says they approached; police called because patient was making his neighbor uncomfortable and acting in a bizarre way, staring at kids. Patient's mother reports that he has been screaming inside the house; she says she got a call from the neighbor saying her son was looking at their children in a bizarre way; patient yelled out loud eave me alone or I will kill you... Says been off his medications for at least 3 weeks, smoking cannabis daily; he concurs that he has been smoking cannabis. Patient does not have any insight however while initially ambivalent about medication, patient did agree to start retaking Risperdal. He says that when he left the hospital last time, on medication it was helping him and he was starting to make progress. And was feeling good for few months. He said at some point he stopped making progress. Not clear if he stopped the medication and then stop making progress or vice versa. Although he is willing to take medications again he is worried that it will just work in the hospital and then once he leaves in a different environment his problems will return. Formulation/clinical reasoning; Review of chart indicates that patient does start to do much better once he is on antipsychotic medication, either Risperdal or paliperidone. It also seems that he does relatively well for a while if he stays on the medication. Patient is willing to restart medications now. He was unwilling to sign himself into the hospital, feeling like he needs to move out of [place] as soon as possible. Patient however seems to be willing to reconsider and maybe willing to sign in later. Since coming to the unit he has demonstrated appropriate behaviors and been in impulse control. Hospital course: 09/20 Patient calm, taking medication but focused on discharging because he wants to help his mother since they are moving locations. Discussed the struggles patient is having in the community and though he remains without insight into this psychiatric symptoms, he agrees that the medications help and treatment benefits him; he agreed to sign himself into the hospital and also to get on long-acting injectable which he wanted to start right away. Currently no AH but paranoid delusional thinking remains. He mostly keeps himself, sometimes pacing the [place] but remains in good behavioral and impulse control and polite and appropriate with peers and staff. 09/21 patient reports feeling better and is notably more relaxed in the milieu, more talkative, slightly brighter affect. Continues to agree with plan. Place 3 day notice to leave Tuesday after next Invega Sustenna 156 mg IM. Still with limited insight but clearly improved judgment. Plan: 3 day notice Q 15 minute checks Continue Risperdal 2 mg b.i.d. Scheduled for Invega Sustenna 156 mg on 09/26/23 Received Invega Sustenna 234 mg Q 28 days; Patient does not want to be on prazosin Patient educated on: diagnosis, medication risk/benefits and therapeutic strategies Informed Consent: understands, does not understand and further education needed Reason for continued inpatient stay Substantial Risk for: rapid decompensation Time Spent With Patient Time: Total time managing care of this patient today ____ minutes.
[2023-09-22] MEDS: Nicotine Polacrilex 2 MG GUM 4 MG BUCCAL (15:08)
[2023-09-22 20:00] VITALS: BP 114/75; PULSE 79; RESP 18; TEMP 36.3; O2SAT 98
[2023-09-22] MEDS: LORazepam 1 MG TABLET PO (20:02)
[2023-09-23 08:00] VITALS: BP 109/56; PULSE 67; RESP 16; TEMP 36.8; O2SAT 98
[2023-09-23] MEDS: risperiDONE 2 MG TABLET PO ×2 (09:08→20:53)
[2023-09-23] MEDS: diphenhydrAMINE HCL 25 MG CAPSULE PO (16:41)
--- NOTE | 2023-09-23 19:07 | HO.PSYCHPN ---
Subjective Subjective Date of Service: 09/23/23 Reason For Visit: Psychotic Interim History: Met with patient; discussed with team Same presentation, overall feeling better and more interactive in the milieu, less cautious. Reports allergies and asks for Zyrtec however says that Benadryl works as well. Patient wanted to review plan and that he was indeed scheduled to discharge Tuesday with which television writer concurred. Otherwise no complaints and no requests. Mental Status Exam Mental Status Exam Narrative: Pt is alert and oriented; behavior is more relaxed, less guarded, cooperative; patient is not in distress; dressed in hospital attire, closely shaved hair, adequate hygiene; mood is better and affect congruent, more calm more interactive; eye contact appropriate; Speech is normal rate, volume and prosody and not pressured; no psychomotor agitation; thought process is goal directed, logical, though concrete; Thought content is on some paranoid delusions but less so; on treatment and getting back home to his mother; denies any SI/HI. Currently no Patients insight impaired but judgment improved. Diagnostics Vital Signs (24Hr): Vital Signs - 24 hr 09/22/23 20:00 09/23/23 08:00 Temperature 97.4 F 98.2 F Pulse Rate 79 67 Respiratory Rate 18 16 Blood Pressure 114/75 109/56 L Pulse Oximetry 98 98 Oxygen Delivery Method Room Air Room Air BMI result Body Mass Index 20.4 Labs 09/17/23 17:05 09/17/23 17:05 Medications Medications Current Medications Acetaminophen (Acetaminophen 325 Mg Tablet) 650 mg PO Q6H PRN PRN Reason: Headache/Pain Mild Scale (1-3) Al Hydroxide/Mg Hydroxide (Magnesium Hydrox/Alum Hydrox 30 Ml Oral.Susp) 30 ml PO Q6H PRN PRN Reason: Heartburn/Nausea Diphenhydramine HCl (Diphenhydramine Hcl 25 Mg Capsule) 25 mg PO TID PRN PRN Reason: allergies Last Admin: 09/23/23 16:41 Dose: 25 mg Docusate Sodium (Docusate Sodium 100 Mg Capsule) 100 mg PO BID PRN PRN Reason: constipation Hydroxyzine HCl (Hydroxyzine Hcl 25 Mg Tablet) 25 mg PO Q6H PRN PRN Reason: Anxiety Last Admin: 09/20/23 09:13 Dose: 25 mg Lorazepam (Lorazepam 1 Mg Tablet) 1 mg PO BEDTIME [facility] Last Admin: 09/22/23 20:02 Dose: 1 mg Magnesium Hydroxide (Milk Of Magnesia 30 Ml Oral.Susp) 30 ml PO DAILY PRN PRN Reason: Constipation Nicotine (Nicotine 21 Mg Patch.Td24) 21 mg TRANSDERMA DAILY PRN PRN Reason: nicotine cravings Nicotine Polacrilex (Nicotine Polacrilex 2 Mg Gum) 4 mg BUCCAL Q2H PRN PRN Reason: Nicotine Cravings Last Admin: 09/22/23 15:08 Dose: 4 mg Olanzapine (Olanzapine 5 Mg Tablet) 5 mg PO TID PRN PRN Reason: agitation Paliperidone Palmitate (Paliperidone Palmitate 234 Mg/1.5 Ml Syringe) 234 mg IM Q30D [facility] Last Admin: 09/21/23 14:38 Dose: 234 mg Paliperidone Palmitate (Paliperidone Palmitate 156 Mg/Ml Syringe) 156 mg IM ONCE ONE Stop: 09/26/23 09:01 Quetiapine Fumarate (Quetiapine Fumarate 50 Mg Tablet) 50 mg PO TID PRN PRN Reason: Insomnia/psychosis Last Admin: 09/18/23 19:25 Dose: 50 mg Risperidone (Risperidone 2 Mg Tablet) 2 mg PO BID [facility] Last Admin: 09/23/23 09:08 Dose: 2 mg Trazodone HCl (Trazodone Hcl 50 Mg Tablet) 50 mg PO BEDTIME MRX1 PRN PRN Reason: Insomnia Allergies Allergies Allergy/AdvReac Type Severity Reaction Status Date / Time bee pollen [bee stings] Allergy Difficulty Verified 09/16/23 19:00 Breathing Assessment & Plan Assessment & Plan (1) Schizophrenia: Status: Acute Code(s): F20.9 - Schizophrenia, unspecified (2) PTSD (post-traumatic stress disorder): Status: Acute Code(s): F43.10 - Post-traumatic stress disorder, unspecified Plan Patient is a 23-year-old male with history of schizophrenia, past psychiatric admissions who was brought to the hospital by police, after being tased due to dangerous behaviors in the neighborhood in the face of worsening AH and delusional thinking, off his medications. Patient is delusional and keeps repeating that he is being gang stalked at his home and that he has been raped at home. He says people in [place] want him to leave the neighborhood and he does not know why. Patient alluded to his neighbor but did not go into details but did say that his neighbor stalks him. Patient also said that he can not eat the food [place]. Care team/ED notes report that patient was brought in by police after he was tased 2 times having made threats in attacked police says they approached; police called because patient was making his neighbor uncomfortable and acting in a bizarre way, staring at kids. Patient's mother reports that he has been screaming inside the house; she says she got a call from the neighbor saying her son was looking at their children in a bizarre way; patient yelled out loud eave me alone or I will kill you... Says been off his medications for at least 3 weeks, smoking cannabis daily; he concurs that he has been smoking cannabis. Patient does not have any insight however while initially ambivalent about medication, patient did agree to start retaking Risperdal. He says that when he left the hospital last time, on medication it was helping him and he was starting to make progress. And was feeling good for few months. He said at some point he stopped making progress. Not clear if he stopped the medication and then stop making progress or vice versa. Although he is willing to take medications again he is worried that it will just work in the hospital and then once he leaves in a different environment his problems will return. Formulation/clinical reasoning; Review of chart indicates that patient does start to do much better once he is on antipsychotic medication, either Risperdal or paliperidone. It also seems that he does relatively well for a while if he stays on the medication. Patient is willing to restart medications now. He was unwilling to sign himself into the hospital, feeling like he needs to move out of [place] as soon as possible. Patient however seems to be willing to reconsider and maybe willing to sign in later. Since coming to the unit he has demonstrated appropriate behaviors and been in impulse control. Hospital course: 09/20 Patient calm, taking medication but focused on discharging because he wants to help his mother since they are moving locations. Discussed the struggles patient is having in the community and though he remains without insight into this psychiatric symptoms, he agrees that the medications help and treatment benefits him; he agreed to sign himself into the hospital and also to get on long-acting injectable which he wanted to start right away. Currently no AH but paranoid delusional thinking remains. He mostly keeps himself, sometimes pacing the [place] but remains in good behavioral and impulse control and polite and appropriate with peers and staff. 09/21 patient reports feeling better and is notably more relaxed in the milieu, more talkative, slightly brighter affect. Continues to agree with plan. Place 3 day notice to leave Tuesday after next Invega Sustenna 156 mg IM. Still with limited insight but clearly improved judgment. 09/22 remains slowly improving; continue treatment plan Plan: 3 day notice Q 15 minute checks Continue Risperdal 2 mg b.i.d. Scheduled for Invega Sustenna 156 mg on 09/26/23 Received Invega Sustenna 234 mg Q 28 days; Patient does not want to be on prazosin Added Benadryl p.r.n. for allergies Patient educated on: diagnosis, medication risk/benefits and medical condition Informed Consent: understands, does not understand and further education needed Reason for continued inpatient stay Substantial Risk for: rapid decompensation Time Spent With Patient Time: Total time managing care of this patient today ____ minutes.
[2023-09-23] MEDS: LORazepam 1 MG TABLET PO (20:52)
[2023-09-24 08:00] VITALS: BP 120/72; PULSE 85; RESP 16; TEMP 36.4; O2SAT 99
[2023-09-24] MEDS: risperiDONE 2 MG TABLET PO ×2 (08:23→19:51)
--- NOTE | 2023-09-24 10:08 | P.PNPSI_ITS ---
Subjective Subjective Date of Service: 09/24/23 Reason For Visit: Psychotic Interim History: Met with patient; discussed with team Same presentation, overall feeling better and more interactive in the milieu, less cautious. Feels medications are helpful. Denies side effects. No complaints and no requests. Hoping for DC the coming week. No SI/HI. Review of Systems Review of Systems Yes Other (patient refuses to answer ROS at this time.) Mental Status Exam Mental Status Exam Narrative: Pt is alert and oriented; behavior is more relaxed, less guarded, cooperative; patient is not in distress; dressed in hospital attire, closely shaved hair, adequate hygiene; mood is better and affect congruent, more calm more interactive; eye contact appropriate; Speech is normal rate, volume and prosody and not pressured; no psychomotor agitation; thought process is goal directed, logical, though concrete; Thought content is on some paranoid delusions but less so; on treatment and getting back home to his mother; denies any SI/HI. Currently no Patients insight impaired but judgment improved. Patient Appearance: Inappropriate and Rigid Patient Orientation: Person and Place Level of Consciousness: Awake Patient Behavior: Guarded, Fearful and Poor Eye Contact Mood Description: Apprehensive Affect Description: Angry Patient Cognition Impaired: No Ability to Follow Directions: Fair Speech Pattern: Clear Diagnostics Vital Signs (24Hr): Vital Signs - 24 hr 09/24/23 08:00 Temperature 97.5 F Pulse Rate 85 Respiratory Rate 16 Blood Pressure 120/72 Pulse Oximetry 99 Oxygen Delivery Method Room Air BMI result Body Mass Index 20.4 Labs 09/17/23 17:05 09/17/23 17:05 Medications Medications Current Medications Acetaminophen (Acetaminophen 325 Mg Tablet) 650 mg PO Q6H PRN PRN Reason: Headache/Pain Mild Scale (1-3) Al Hydroxide/Mg Hydroxide (Magnesium Hydrox/Alum Hydrox 30 Ml Oral.Susp) 30 ml PO Q6H PRN PRN Reason: Heartburn/Nausea Diphenhydramine HCl (Diphenhydramine Hcl 25 Mg Capsule) 25 mg PO TID PRN PRN Reason: allergies Last Admin: 09/23/23 16:41 Dose: 25 mg Docusate Sodium (Docusate Sodium 100 Mg Capsule) 100 mg PO BID PRN PRN Reason: constipation Hydroxyzine HCl (Hydroxyzine Hcl 25 Mg Tablet) 25 mg PO Q6H PRN PRN Reason: Anxiety Last Admin: 09/20/23 09:13 Dose: 25 mg Lorazepam (Lorazepam 1 Mg Tablet) 1 mg PO BEDTIME [facility] Last Admin: 09/23/23 20:52 Dose: 1 mg Magnesium Hydroxide (Milk Of Magnesia 30 Ml Oral.Susp) 30 ml PO DAILY PRN PRN Reason: Constipation Nicotine (Nicotine 21 Mg Patch.Td24) 21 mg TRANSDERMA DAILY PRN PRN Reason: nicotine cravings Nicotine Polacrilex (Nicotine Polacrilex 2 Mg Gum) 4 mg BUCCAL Q2H PRN PRN Reason: Nicotine Cravings Last Admin: 09/22/23 15:08 Dose: 4 mg Olanzapine (Olanzapine 5 Mg Tablet) 5 mg PO TID PRN PRN Reason: agitation Paliperidone Palmitate (Paliperidone Palmitate 234 Mg/1.5 Ml Syringe) 234 mg IM Q30D [facility] Last Admin: 09/21/23 14:38 Dose: 234 mg Paliperidone Palmitate (Paliperidone Palmitate 156 Mg/Ml Syringe) 156 mg IM ONCE ONE Stop: 09/26/23 09:01 Quetiapine Fumarate (Quetiapine Fumarate 50 Mg Tablet) 50 mg PO TID PRN PRN Reason: Insomnia/psychosis Last Admin: 09/18/23 19:25 Dose: 50 mg Risperidone (Risperidone 2 Mg Tablet) 2 mg PO BID [facility] Last Admin: 09/24/23 08:23 Dose: 2 mg Trazodone HCl (Trazodone Hcl 50 Mg Tablet) 50 mg PO BEDTIME MRX1 PRN PRN Reason: Insomnia Allergies Allergies Allergy/AdvReac Type Severity Reaction Status Date / Time bee pollen [bee stings] Allergy Difficulty Verified 09/16/23 19:00 Breathing Assessment & Plan Assessment & Plan (1) Schizophrenia: Status: Acute Code(s): F20.9 - Schizophrenia, unspecified (2) PTSD (post-traumatic stress disorder): Status: Acute Code(s): F43.10 - Post-traumatic stress disorder, unspecified Plan Patient is a 23-year-old male with history of schizophrenia, past psychiatric admissions who was brought to the hospital by police, after being tased due to dangerous behaviors in the neighborhood in the face of worsening AH and delusional thinking, off his medications. Patient is delusional and keeps repeating that he is being gang stalked at his home and that he has been raped at home. He says people in [place] want him to leave the neighborhood and he does not know why. Patient alluded to his neighbor but did not go into details but did say that his neighbor stalks him. Patient also said that he can not eat the food [place]. Care team/ED notes report that patient was brought in by police after he was tased 2 times having made threats in attacked police says they approached; police called because patient was making his neighbor uncomfortable and acting in a bizarre way, staring at kids. Patient's mother reports that he has been screaming inside the house; she says she got a call from the neighbor saying her son was looking at their children in a bizarre way; patient yelled out loud eave me alone or I will kill you... Says been off his medications for at least 3 weeks, smoking cannabis daily; he concurs that he has been smoking cannabis. Patient does not have any insight however while initially ambivalent about medication, patient did agree to start retaking Risperdal. He says that when he left the hospital last time, on medication it was helping him and he was starting to make progress. And was feeling good for few months. He said at some point he stopped making progress. Not clear if he stopped the medication and then stop making progress or vice versa. Although he is willing to take medications again he is worried that it will just work in the hospital and then once he leaves in a different environment his problems will return. Formulation/clinical reasoning; Review of chart indicates that patient does start to do much better once he is on antipsychotic medication, either Risperdal or paliperidone. It also seems that he does relatively well for a while if he stays on the medication. Patient is willing to restart medications now. He was unwilling to sign himself into the hospital, feeling like he needs to move out of [place] as soon as possible. Patient however seems to be willing to reconsider and maybe willing to sign in later. Since coming to the unit he has demonstrated appropriate behaviors and been in impulse control. Hospital course: 09/20 Patient calm, taking medication but focused on discharging because he wants to help his mother since they are moving locations. Discussed the struggles patient is having in the community and though he remains without insight into this psychiatric symptoms, he agrees that the medications help and treatment benefits him; he agreed to sign himself into the hospital and also to get on long-acting injectable which he wanted to start right away. Currently no AH but paranoid delusional thinking remains. He mostly keeps himself, sometimes pacing the [place] but remains in good behavioral and impulse control and polite and appropriate with peers and staff. 09/21 patient reports feeling better and is notably more relaxed in the milieu, more talkative, slightly brighter affect. Continues to agree with plan. Place 3 day notice to leave Tuesday after next Invega Sustenna 156 mg IM. Still with limited insight but clearly improved judgment. 09/22 remains slowly improving; continue treatment plan 09/23: continue current management and treatment plan. Plan: 3 day notice Q 15 minute checks Continue Risperdal 2 mg b.i.d. Scheduled for Invega Sustenna 156 mg on 09/26/23 Received Invega Sustenna 234 mg Q 28 days; Patient does not want to be on prazosin Added Benadryl p.r.n. for allergies Reason for continued inpatient stay Substantial Risk for: inability to function and rapid decompensation Time Spent With Patient Time: Total time managing care of this patient today ____ minutes.
[2023-09-24] MEDS: LORazepam 1 MG TABLET PO (19:51)
[2023-09-24 20:00] VITALS: BP 108/68; PULSE 74; RESP 17; TEMP 36.9; O2SAT 99
[2023-09-25 07:59] VITALS: BP 105/61; PULSE 71; RESP 16; TEMP 36.5; O2SAT 98
[2023-09-25] MEDS: risperiDONE 2 MG TABLET PO ×2 (08:27→20:29)
[2023-09-25] MEDS: Nicotine Polacrilex 2 MG GUM 4 MG BUCCAL (15:35)
--- NOTE | 2023-09-25 17:15 | P.PNPSI_ITS ---
Subjective Subjective Date of Service: 09/25/23 Reason For Visit: Psychotic Interim History: Met with patient; discussed with team Same presentation, overall feeling better and more interactive in the milieu, less cautious. Feels medications are helpful. Denies side effects. No complaints and no requests. Hoping for DC the coming week. No SI/HI. Review of Systems Review of Systems Yes Other (patient refuses to answer ROS at this time.) Mental Status Exam Mental Status Exam Narrative: Pt is alert and oriented; behavior is more relaxed, less guarded, cooperative; patient is not in distress; dressed in hospital attire, closely shaved hair, adequate hygiene; mood is better and affect congruent, more calm more interactive; eye contact appropriate; Speech is normal rate, volume and prosody and not pressured; no psychomotor agitation; thought process is goal directed, logical, though concrete; Thought content is on some paranoid delusions but less so; on treatment and getting back home to his mother; denies any SI/HI. Currently no Patients insight impaired but judgment improved. Patient Appearance: Inappropriate and Rigid Patient Orientation: Person and Place Level of Consciousness: Awake Patient Behavior: Guarded, Fearful and Poor Eye Contact Mood Description: Apprehensive Affect Description: Angry Patient Cognition Impaired: No Ability to Follow Directions: Fair Speech Pattern: Clear Diagnostics Vital Signs (24Hr): Vital Signs - 24 hr 09/24/23 20:00 09/25/23 07:59 Temperature 98.4 F 97.7 F Pulse Rate 74 71 Respiratory Rate 17 16 Blood Pressure 108/68 105/61 Pulse Oximetry 99 98 Oxygen Delivery Method Room Air Room Air BMI result Body Mass Index 20.4 Labs 09/17/23 17:05 09/17/23 17:05 Medications Medications Current Medications Acetaminophen (Acetaminophen 325 Mg Tablet) 650 mg PO Q6H PRN PRN Reason: Headache/Pain Mild Scale (1-3) Al Hydroxide/Mg Hydroxide (Magnesium Hydrox/Alum Hydrox 30 Ml Oral.Susp) 30 ml PO Q6H PRN PRN Reason: Heartburn/Nausea Diphenhydramine HCl (Diphenhydramine Hcl 25 Mg Capsule) 25 mg PO TID PRN PRN Reason: allergies Last Admin: 09/23/23 16:41 Dose: 25 mg Docusate Sodium (Docusate Sodium 100 Mg Capsule) 100 mg PO BID PRN PRN Reason: constipation Hydroxyzine HCl (Hydroxyzine Hcl 25 Mg Tablet) 25 mg PO Q6H PRN PRN Reason: Anxiety Last Admin: 09/20/23 09:13 Dose: 25 mg Lorazepam (Lorazepam 1 Mg Tablet) 1 mg PO BEDTIME [facility] Last Admin: 09/24/23 19:51 Dose: 1 mg Magnesium Hydroxide (Milk Of Magnesia 30 Ml Oral.Susp) 30 ml PO DAILY PRN PRN Reason: Constipation Nicotine (Nicotine 21 Mg Patch.Td24) 21 mg TRANSDERMA DAILY PRN PRN Reason: nicotine cravings Nicotine Polacrilex (Nicotine Polacrilex 2 Mg Gum) 4 mg BUCCAL Q2H PRN PRN Reason: Nicotine Cravings Last Admin: 09/25/23 15:35 Dose: 4 mg Olanzapine (Olanzapine 5 Mg Tablet) 5 mg PO TID PRN PRN Reason: agitation Paliperidone Palmitate (Paliperidone Palmitate 234 Mg/1.5 Ml Syringe) 234 mg IM Q30D [facility] Last Admin: 09/21/23 14:38 Dose: 234 mg Paliperidone Palmitate (Paliperidone Palmitate 156 Mg/Ml Syringe) 156 mg IM ONCE ONE Stop: 09/26/23 09:01 Quetiapine Fumarate (Quetiapine Fumarate 50 Mg Tablet) 50 mg PO TID PRN PRN Reason: Insomnia/psychosis Last Admin: 09/18/23 19:25 Dose: 50 mg Risperidone (Risperidone 2 Mg Tablet) 2 mg PO BID [facility] Last Admin: 09/25/23 08:27 Dose: 2 mg Trazodone HCl (Trazodone Hcl 50 Mg Tablet) 50 mg PO BEDTIME MRX1 PRN PRN Reason: Insomnia Allergies Allergies Allergy/AdvReac Type Severity Reaction Status Date / Time bee pollen [bee stings] Allergy Difficulty Verified 09/16/23 19:00 Breathing Assessment & Plan Assessment & Plan (1) Schizophrenia: Status: Acute Code(s): F20.9 - Schizophrenia, unspecified (2) PTSD (post-traumatic stress disorder): Status: Acute Code(s): F43.10 - Post-traumatic stress disorder, unspecified Plan Patient is a 23-year-old male with history of schizophrenia, past psychiatric admissions who was brought to the hospital by police, after being tased due to dangerous behaviors in the neighborhood in the face of worsening AH and delusional thinking, off his medications. Patient is delusional and keeps repeating that he is being gang stalked at his home and that he has been raped at home. He says people in [place] want him to leave the neighborhood and he does not know why. Patient alluded to his neighbor but did not go into details but did say that his neighbor stalks him. Patient also said that he can not eat the food [employer]. Care team/ED notes report that patient was brought in by police after he was tased 2 times having made threats in attacked police says they approached; police called because patient was making his neighbor uncomfortable and acting in a bizarre way, staring at kids. Patient's mother reports that he has been screaming inside the house; she says she got a call from the neighbor saying her son was looking at their children in a bizarre way; patient yelled out loud eave me alone or I will kill you... Says been off his medications for at least 3 weeks, smoking cannabis daily; he concurs that he has been smoking cannabis. Patient does not have any insight however while initially ambivalent about medication, patient did agree to start retaking Risperdal. He says that when he left the hospital last time, on medication it was helping him and he was starting to make progress. And was feeling good for few months. He said at some point he stopped making progress. Not clear if he stopped the medication and then stop making progress or vice versa. Although he is willing to take medications again he is worried that it will just work in the hospital and then once he leaves in a different environment his problems will return. Formulation/clinical reasoning; Review of chart indicates that patient does start to do much better once he is on antipsychotic medication, either Risperdal or paliperidone. It also seems that he does relatively well for a while if he stays on the medication. Patient is willing to restart medications now. He was unwilling to sign himself into the hospital, feeling like he needs to move out of [place] as soon as possible. Patient however seems to be willing to reconsider and maybe willing to sign in later. Since coming to the unit he has demonstrated appropriate behaviors and been in impulse control. Hospital course: 09/20 Patient calm, taking medication but focused on discharging because he wants to help his mother since they are moving locations. Discussed the struggles patient is having in the community and though he remains without insight into this psychiatric symptoms, he agrees that the medications help and treatment benefits him; he agreed to sign himself into the hospital and also to get on long-acting injectable which he wanted to start right away. Currently no AH but paranoid delusional thinking remains. He mostly keeps himself, sometimes pacing the [place] but remains in good behavioral and impulse control and polite and appropriate with peers and staff. 09/21 patient reports feeling better and is notably more relaxed in the milieu, more talkative, slightly brighter affect. Continues to agree with plan. Place 3 day notice to leave Tuesday after next Invega Sustenna 156 mg IM. Still with limited insight but clearly improved judgment. 09/22 remains slowly improving; continue treatment plan 09/23: continue current management and treatment plan. 09/24: continue current management and treatment plan. Plan: 3 day notice Q 15 minute checks Continue Risperdal 2 mg b.i.d. Scheduled for Invega Sustenna 156 mg on 09/26/23 Received Invega Sustenna 234 mg Q 28 days; Patient does not want to be on prazosin Added Benadryl p.r.n. for allergies Reason for continued inpatient stay Substantial Risk for: inability to function and rapid decompensation Time Spent With Patient Time: Total time managing care of this patient today ____ minutes.
[2023-09-25 20:00] VITALS: BP 108/58; PULSE 80; TEMP 36.7; O2SAT 96
[2023-09-25] MEDS: LORazepam 1 MG TABLET PO (20:29)
[2023-09-25] MEDS: traZODone HCL 50 MG TABLET PO (20:29)
[2023-09-26 08:00] VITALS: BP 119/66; PULSE 76; RESP 18; TEMP 36.3; O2SAT 98
[2023-09-26] MEDS: risperiDONE 2 MG TABLET PO ×2 (08:59→20:05)
[2023-09-26] MEDS: Paliperidone Palmitate 156 MG/ML SYRINGE IM (13:27)
--- NOTE | 2023-09-26 16:58 | P.PNPSI_ITS ---
Subjective Subjective Date of Service: 09/26/23 Reason For Visit: Psychotic Interim History: Met with patient; discussed with team Patient reports that his mood good and that he is overall feeling much better. He said he has not worried about his neighbors or gangs and says I just let the police handle that. Denies any AH. On further discussion he said he thinks that a lot of this has to do with his mind playing tricks on and feels the medication has been helpful. He is due for his Invega Sustenna 156 mg today and says he will continue to take it post discharge. Patient says he is looking forward to get home soon and seeing his mom Mental Status Exam Mental Status Exam Narrative: Pt is alert and oriented; behavior is more relaxed, less guarded, cooperative; patient is not in distress; dressed in hospital attire, closely shaved hair, adequate hygiene; mood is good and affect congruent, calm, brighter; eye contact appropriate; Speech is normal rate, volume and prosody and not pressured; no psychomotor agitation; thought process is goal directed, logical, though concrete; Thought content is on some paranoid delusions but less so; on treatment and getting back home to his mother; denies any SI/HI. Currently no AH Patients insight and judgment impaired but much improved, at baseline and adequate. Diagnostics Vital Signs (24Hr): Vital Signs - 24 hr 09/25/23 20:00 09/26/23 08:00 Temperature 98.1 F 97.4 F Pulse Rate 80 76 Respiratory Rate 18 Blood Pressure 108/58 L 119/66 Pulse Oximetry 96 98 Oxygen Delivery Method Room Air Room Air BMI result Body Mass Index 20.4 Labs 09/17/23 17:05 09/17/23 17:05 Medications Medications Current Medications Acetaminophen (Acetaminophen 325 Mg Tablet) 650 mg PO Q6H PRN PRN Reason: Headache/Pain Mild Scale (1-3) Al Hydroxide/Mg Hydroxide (Magnesium Hydrox/Alum Hydrox 30 Ml Oral.Susp) 30 ml PO Q6H PRN PRN Reason: Heartburn/Nausea Diphenhydramine HCl (Diphenhydramine Hcl 25 Mg Capsule) 25 mg PO TID PRN PRN Reason: allergies Last Admin: 09/23/23 16:41 Dose: 25 mg Docusate Sodium (Docusate Sodium 100 Mg Capsule) 100 mg PO BID PRN PRN Reason: constipation Hydroxyzine HCl (Hydroxyzine Hcl 25 Mg Tablet) 25 mg PO Q6H PRN PRN Reason: Anxiety Last Admin: 09/20/23 09:13 Dose: 25 mg Magnesium Hydroxide (Milk Of Magnesia 30 Ml Oral.Susp) 30 ml PO DAILY PRN PRN Reason: Constipation Nicotine (Nicotine 21 Mg Patch.Td24) 21 mg TRANSDERMA DAILY PRN PRN Reason: nicotine cravings Nicotine Polacrilex (Nicotine Polacrilex 2 Mg Gum) 4 mg BUCCAL Q2H PRN PRN Reason: Nicotine Cravings Last Admin: 09/25/23 15:35 Dose: 4 mg Olanzapine (Olanzapine 5 Mg Tablet) 5 mg PO TID PRN PRN Reason: agitation Paliperidone Palmitate (Paliperidone Palmitate 234 Mg/1.5 Ml Syringe) 234 mg IM Q30D [facility] Last Admin: 09/21/23 14:38 Dose: 234 mg Quetiapine Fumarate (Quetiapine Fumarate 50 Mg Tablet) 50 mg PO TID PRN PRN Reason: Insomnia/psychosis Last Admin: 09/18/23 19:25 Dose: 50 mg Risperidone (Risperidone 2 Mg Tablet) 2 mg PO BID [facility] Last Admin: 09/26/23 08:59 Dose: 2 mg Trazodone HCl (Trazodone Hcl 50 Mg Tablet) 50 mg PO BEDTIME MRX1 PRN PRN Reason: Insomnia Last Admin: 09/25/23 20:29 Dose: 50 mg Allergies Allergies Allergy/AdvReac Type Severity Reaction Status Date / Time bee pollen [bee stings] Allergy Difficulty Verified 09/16/23 19:00 Breathing Assessment & Plan Assessment & Plan (1) Schizophrenia: Status: Acute Code(s): F20.9 - Schizophrenia, unspecified (2) PTSD (post-traumatic stress disorder): Status: Acute Code(s): F43.10 - Post-traumatic stress disorder, unspecified Plan Patient is a 23-year-old male with history of schizophrenia, past psychiatric admissions who was brought to the hospital by police, after being tased due to dangerous behaviors in the neighborhood in the face of worsening AH and delusional thinking, off his medications. Patient is delusional and keeps repeating that he is being gang stalked at his home and that he has been raped at home. He says people in [place] want him to leave the neighborhood and he does not know why. Patient alluded to his neighbor but did not go into details but did say that his neighbor stalks him. Patient also said that he can not eat the food [place]. Care team/ED notes report that patient was brought in by police after he was tased 2 times having made threats in attacked police says they approached; police called because patient was making his neighbor uncomfortable and acting in a bizarre way, staring at kids. Patient's mother reports that he has been screaming inside the house; she says she got a call from the neighbor saying her son was looking at their children in a bizarre way; patient yelled out loud eave me alone or I will kill you... Says been off his medications for at least 3 weeks, smoking cannabis daily; he concurs that he has been smoking cannabis. Patient does not have any insight however while initially ambivalent about medication, patient did agree to start retaking Risperdal. He says that when he left the hospital last time, on medication it was helping him and he was starting to make progress. And was feeling good for few months. He said at some point he stopped making progress. Not clear if he stopped the medication and then stop making progress or vice versa. Although he is willing to take medications again he is worried that it will just work in the hospital and then once he leaves in a different environment his problems will return. Formulation/clinical reasoning; Review of chart indicates that patient does start to do much better once he is on antipsychotic medication, either Risperdal or paliperidone. It also seems that he does relatively well for a while if he stays on the medication. Patient is willing to restart medications now. He was unwilling to sign himself into the hospital, feeling like he needs to move out of [place] as soon as possible. Patient however seems to be willing to reconsider and maybe willing to sign in later. Since coming to the unit he has demonstrated appropriate behaviors and been in impulse control. Hospital course: 09/20 Patient calm, taking medication but focused on discharging because he wants to help his mother since they are moving locations. Discussed the struggles patient is having in the community and though he remains without insight into this psychiatric symptoms, he agrees that the medications help and treatment benefits him; he agreed to sign himself into the hospital and also to get on long-acting injectable which he wanted to start right away. Currently no AH but paranoid delusional thinking remains. He mostly keeps himself, sometimes pacing the [place] but remains in good behavioral and impulse control and polite and appropriate with peers and staff. 09/21 patient reports feeling better and is notably more relaxed in the milieu, more talkative, slightly brighter affect. Continues to agree with plan. Place 3 day notice to leave Tuesday after next Invega Sustenna 156 mg IM. Still with limited insight but clearly improved judgment. 09/25 Patient reports that his mood good and that he is overall feeling much better. He said he has not worried about his neighbors or gangs and says I just let the police handle that. Denies any AH. On further discussion he said he thinks that a lot of this has to do with his mind playing tricks on and feels the medication has been helpful. He is due for his Invega Sustenna 156 mg today and says he will continue to take it post discharge. Patient says he is looking forward to get home soon and seeing his mom -patient's 3 day notice is coming due. He is remained in good behavioral and impulse control throughout his entire time on the unit, appropriate with peers and staff, polite and friendly. Patient reports that his mood is good and his affect is noticeably brighter and calm. No AVH, no SI, no HI. Paranoid delusions significantly reduced and patient says he has not thinking at all about any problems with his neighbors are gangs. Patient feels that the medications have been helping and he demonstrates improved insight realizing that is paranoid delusions maybe his mind playing tricks on him. Patient is returning to live with his mother who is very supportive. Patient is not in imminent risk for harm to self or others and request for discharge honored. Plan: 3 day notice Q 15 minute checks Will DC Risperdal 2 mg b.i.d. Received Invega Sustenna 156 mg on 09/26/23 Patient does not want to be on prazosin Added Benadryl p.r.n. for allergies Patient educated on: diagnosis, medication risk/benefits and therapeutic strategies Informed Consent: understands Reason for continued inpatient stay Substantial Risk for: stable for discharge Time Spent With Patient Time: Total time managing care of this patient today ____ minutes.
--- NOTE | 2023-09-26 17:11 | PM.PSYDC ---
DS: Providers Provider Date of Service: 09/27/23 Date of admission: 09/19/23 13:22 Date of discharge: 09/27/23 Primary care physician: Unknown Physician Attending physician on admission: Alexandre Novak Attending physician on discharge: Alexandre Novak DS: Diagnosis Discharge Diagnosis (1) Schizophrenia: Status: Acute (2) PTSD (post-traumatic stress disorder): Status: Acute DS: Medications Discharge Medications Home Medications: Previous Rx's ?Medication ?Instructions ?Recorded docusate sodium 100 mg capsule 100 mg PO BID #60 caps 12/02/21 paliperidone 6 mg tablet,extended 6 mg PO QAM #30 tabs 12/02/21 release 24 hr paliperidone palmitate 156 mg/mL 156 mg IM ONCE #1 mL 12/02/21 intramuscular syringe ([employer]) paliperidone palmitate 234 mg/1.5 234 mg (1.5 mL) IM Q30D #1.5 mL 12/02/21 mL intramuscular syringe ([employer]) prazosin 1 mg capsule 1 mg PO BEDTIME #30 caps 12/02/21 trazodone 50 mg tablet 50 mg PO BEDTIME PRN Insomnia #30 12/02/21 tabs Mental Status Exam Mental Status Exam Narrative: Pt is alert and oriented; behavior is more relaxed,, calm, cooperative and friendly; patient is not in distress; dressed in hospital attire, closely shaved hair, adequate hygiene; mood is good and affect congruent, calm, brighter, even smiling at times; eye contact appropriate; Speech is normal rate, volume and prosody and not pressured; no psychomotor agitation; thought process is goal directed, logical, though concrete; Thought content is on discharge; patient challenging paranoid delusions with reality testing; denies any SI; denies any HI. Denies AVH Patients insight and judgment impaired but much improved, at baseline and adequate. Data Data Completed and Pending Completed studies during hospitalization [Text1]: 09/21/23 14:37 Triglycerides 168 H Cholesterol 141 LDL Cholesterol, Calc 54 HDL Cholesterol 54 DS: Summary Hospital Course Hospital Course: HPI: Patient is a 23-year-old male with history of schizophrenia, past psychiatric admissions who was brought to the hospital by police, after being tased due to dangerous behaviors in the neighborhood in the face of worsening AH and delusional thinking, off his medications. Patient is delusional and keeps repeating that he is being gang stalked at his home and that he has been raped at home. He says people in [place] want him to leave the neighborhood and he does not know why. Patient alluded to his neighbor but did not go into details but did say that his neighbor stalks him. Patient also said that he can not eat the food [place]. Care team/ED notes report that patient was brought in by police after he was tased 2 times having made threats in attacked police says they approached; police called because patient was making his neighbor uncomfortable and acting in a bizarre way, staring at kids. Patient's mother reports that he has been screaming inside the house; she says she got a call from the neighbor saying her son was looking at their children in a bizarre way; patient yelled out loud eave me alone or I will kill you... Says been off his medications for at least 3 weeks, smoking cannabis daily; he concurs that he has been smoking cannabis. Patient does not have any insight however while initially ambivalent about medication, patient did agree to start retaking Risperdal. He says that when he left the hospital last time, on medication it was helping him and he was starting to make progress. And was feeling good for few months. He said at some point he stopped making progress. Not clear if he stopped the medication and then stop making progress or vice versa. Although he is willing to take medications again he is worried that it will just work in the hospital and then once he leaves in a different environment his problems will return. Formulation/clinical reasoning; Review of chart indicates that patient does start to do much better once he is on antipsychotic medication, either Risperdal or paliperidone. It also seems that he does relatively well for a while if he stays on the medication. Patient is willing to restart medications now. He was unwilling to sign himself into the hospital, feeling like he needs to move out of [place] as soon as possible. Patient however seems to be willing to reconsider and maybe willing to sign in later. Since coming to the unit he has demonstrated appropriate behaviors and been in impulse control. Hospital course: 09/20 Patient calm, taking medication; initially focused on discharging because he wants to help his mother since they are moving locations. Discussed the struggles patient is having in the community and though he remains without insight into this psychiatric symptoms, he agrees that the medications help and treatment benefits him; he agreed to sign himself into the hospital and also to get on long-acting injectable which he wanted to start right away. Currently no AH but paranoid delusional thinking remains. He mostly keeps himself, sometimes pacing the [place] but remains in good behavioral and impulse control and polite and appropriate with peers and staff. 09/21 patient received Invega Sustenna 234 mg and continues to take Risperdal p.o. until he gets his next loading dose of Invega Sustenna. Patient reports feeling better and is notably more relaxed in the milieu, more talkative and he does seem to have a brighter and more calm affect. Continues to agree with plan and placed a 3 day notice as discussed with plan for to leave Tuesday after next Invega Sustenna 156 mg IM, as he continues to demonstrate stability. He still has some limited insight however his judgment is clearly improved. He remains with good behavioral and impulse control in his polite with peers and staff. He is also sleeping well and continued to deny any AH. 09/25 Patient reports that his mood good and that he is overall feeling much better. He said he has not worried about his neighbors or gangs and says i'll just let the police handle that. He denies any AH. On further discussion he said he thinks that a lot of this has to do with his mind playing tricks on and feels the medication has been helpful. He received Invega Sustenna 156 mg today and says he will keep taking the long-acting injectable post discharge and asks about the timing of it and confirms that he can stop the p.o. Risperdal. Regarding Risperdal, copy writer says that he can take 1-2 mg a day as needed for agitation which patient said he thinks will be helpful and says he already has prior prescription and tablets at home already. Patient says he is looking forward to get home soon and seeing his mom. Team was able to discuss the case with his mother who is very supportive and understands patient's illness. She will help maintain adherence to the medication and appointments. Impression: Patient is back to his baseline. His 3 day notice is coming due. He is remained in good behavioral and impulse control throughout his entire time on the unit, appropriate with peers and staff, polite and friendly. Patient reports that his mood is good and his affect is noticeably brighter and calm. No AVH, no SI, no HI. Paranoid delusions significantly reduced and patient says he has not thinking at all about any problems with his neighbors are gangs. Patient feels that the medications have been helping and he demonstrates improved insight realizing that is paranoid delusions maybe his mind playing tricks on him. Patient is returning to live with his mother who is very supportive. Patient is not in imminent risk for harm to self or others and request for discharge honored. Medication: Invega Sustenna 234mg next due 10/24/23 Time spent discussing smoking cessation with patient: 3 to 10 minutes Status at Discharge Functional status at discharge: independent ambulation Overall status at discharge: patient is back to baseline Time Spent with Patient Time attestation: Total time managing care of this patient today _35___ minutes. Time spent: Greater than 30 minutes Discharge Plan Discharge Anticipated Discharge Date/Time: 09/27/23 11:00 Patient Disposition: Home, Self-Care Discharge Diagnosis: Schizophrenia Referrals: [facility]- Visiting Nurse [Other] - 1 Week (Visiting Nurse will be assisting with injectable medication. As it grows closer to the time when you are do for the medication reach out to the agency to arrange a date and time to meet. ) [facility] Psyche Eval w Brianda Celaya [Other] - 10/27/23 10:00 am (Telehealth) [facility] Med Mgmt w Brianda Celaya [Other] - 11/24/23 11:20 am (Telehealth) [facility] Intake w Lakisha Casillas [Other] - 09/28/23 11:00 am (In person.) Physician,Unknown J [Primary Care Provider] - (Pt declined [facility] to schedule f/u appointment. ) Discharge Medications: New nicotine (polacrilex) 2 mg Gum 4 mg buccal Q2H PRN (Reason: Nicotine Cravings) 30 Days Qty: 100 0RF risperidone 1 mg tablet 1 mg PO BID PRN (Reason: agitation/anxiety) Qty: 0 0RF epinephrine [EpiPen] 0.3 mg/0.3 mL auto-injector 0.3 mg IM Q4H PRN (Reason: anaphylaxis) Qty: 2 0RF Rx Instructions: for anaphylaxis reaction Continued trazodone 50 mg Tablet 50 mg PO BEDTIME PRN (Reason: Insomnia) 30 Days Qty: 30 1RF docusate sodium 100 mg Capsule 100 mg PO BID 30 Days Qty: 60 1RF Rx Instructions: hold for loose stools Changed Invega Sustenna 234 mg/1.5 mL syringe 234 mg IM Q28D 28 Days Qty: 1.5 1RF Rx Instructions: next dose by 10/24/23 Pharmacist to administer Discontinued prazosin 1 mg Capsule 1 mg PO BEDTIME Qty: 30 0RF Protocol: Hold for SBP< HOLD for SBP < : 90 paliperidone 6 mg tablet extended release 24hr 6 mg PO QAM Qty: 30 0RF Invega Sustenna 156 mg/mL syringe 156 mg IM ONCE Qty: 1 0RF Rx Instructions: due on 12/08. Discharge Orders: Discharge Order (Routine); Ordered 09/27/23 Ordered By: Alexandre Novak Diet: Regular diet Activity on Discharge: As tolerated Stand Alone Forms: Patient Portal Discharge page, Community Support Print Language: Greenlandic Care Plan Goals: Maintain mood and safe behaviors Take medications as prescribed Continue to pursue sobriety from cannabis Practice coping skills Continue with outpatient providers and reach out to them as needed Health Concerns: Mood stability and behaviors Plan of Treatment: Follow up with your PCP, psychiatric provider and other outpatient providers regarding above concerns Take medications as prescribed Assessment: Risk assessment at time of discharge:? Patient was interviewed prior to discharge and found to be fully oriented and without any SI or HI. Patient has improved insight and judgment and wants to continue treatment. Patient is not in imminent risk of harm to self or others and has a safety plan that includes presenting to the closest ER or calling 911 if feeling unsafe.? Patient has been observed closely by nursing and unit staff throughout admission; patient has not engaged in any behaviors that suggest dangerousness to self or others and has demonstrated appropriate behaviors and impulse control Discharge Date/Time: 09/27/23 11:00
[2023-09-26 20:00] VITALS: BP 117/65; PULSE 95; TEMP 36.3
[2023-09-26] MEDS: traZODone HCL 50 MG TABLET PO (20:05)
[2023-09-26] MEDS: Acetaminophen 325 MG TABLET 650 MG PO (20:07)
[2023-09-27] MEDS: traZODone HCL 50 MG TABLET PO (02:20)
[2023-09-27 08:00] VITALS: BP 115/72; PULSE 74; RESP 16; TEMP 36.4; O2SAT 98
[2023-09-27] MEDS: risperiDONE 2 MG TABLET PO (08:37)
[2023-09-27] MEDS: Acetaminophen 325 MG TABLET 650 MG PO (08:37)
== END 2023-09-27 11:00 | disposition home or self-care (01) | DRG 750 ==
LOC: HO.ED 20:40 → HO.PM5 09-19 13:31
PROVIDERS: Admitting Provider Psychiatry & Neurology Psychiatry; Emergency Provider Emergency Medicine; Visit Provider Psychiatry & Neurology Psychiatry
DX: F20.9 Schizophrenia, unspecified (principal); Z91.148 Patient's other noncompliance with medication regimen for other reason; F17.290 Nicotine dependence, other tobacco product, uncomplicated; F43.10 Post-traumatic stress disorder, unspecified; Z71.6 Tobacco abuse counseling; Z79.899 Other long term (current) drug therapy
CPT/HCPCS: 36415; 80053; 80061; 80307; 83036; 85025; 99285; J2426; S9485

== ENCOUNTER → 2023-09-19 13:22 | Outpatient (BNV) | payer OTHER, SELFPAY | PROVIDERS: Admitting Provider Psychiatry & Neurology Psychiatry; Emergency Provider Emergency Medicine; Visit Provider Psychiatry & Neurology Psychiatry | DX: F20.0 Paranoid schizophrenia (principal); F43.11 Post-traumatic stress disorder, acute | CPT/HCPCS: 99231; 99232 ==

== ENCOUNTER 2024-01-23 15:06 | Outpatient (REF) | payer OTHER, SELFPAY ==
[2024-01-23 16:13] LABS: MANUAL DIFF FLAG NO
[2024-01-23 16:18] LABS: Basophils Absolute Auto 0.1 X10*3/uL (0.0-0.2); Basophils Percent Auto 0.5 % (0-2); Eosinophils Absolute Auto 0.7 X10*3/uL (0.0-0.4); Eosinophils Percent Auto 6.1 % (0-4); Hematocrit 43.1 % (42.0-52.0); Hemoglobin 14.8 g/dl (14.0-18.0); Imm Gran Pct Auto 0.9 % (0.0-0.4); Lymphocytes Absolute Auto 2.7 X10*3/uL (1.2-4.9); Lymphocytes Percent Auto 24.2 % (20-40); Mean Corpuscular HGB Conc 34.3 g/dl (31.0-36.0); Mean Corpuscular Volume 87.4 fL (80.0-98.0); Mean Platelet Volume 11.7 fL (9.4-12.4); Monocytes Absolute Auto 0.9 X10*3/uL (0.1-1.2); Monocytes Percent Auto 7.8 % (2-11); Neutrophils Absolute Auto 6.7 x10*3/uL (2.0-8.3); Neutrophils Percent Auto 60.5 % (45-73); Platelet Count 270 X10*3/uL (160-400); Red Blood Count 4.93 X10*6/uL (4.60-5.80); Red Cell Distribution Width 12.2 % (11.0-16.0)
[2024-01-23 16:36] LABS: Estimated Average Glucose 111 mg/dL; Hemoglobin A1C 142.2001 umol/L; Hemoglobin A1c % 5.5 % (<6.0); Total Hemoglobin (HGBA1C) 3834.1426 umol/L
[2024-01-23 16:40] LABS: Alanine Aminotransferase 19 U/L (0-40); Albumin Level 4.5 g/dL (3.5-5.0); Alkaline Phosphatase 57 U/L (39-117); Anion Gap 13 (12-20); Aspartate Amino Transferase 21 U/L (5-37); Bilirubin Total 0.5 mg/dL (0.0-1.0); Blood Urea Nitrogen 11 mg/dL (9-16); Calcium 9.5 mg/dL (8.4-10.2); Carbon Dioxide 26 mmol/L (22-29); Chloride 103 mmol/L (96-108); Cholesterol 170 mg/dL (<200); Estimated Glomerular Filt Rate > 60; Glucose Random 91 mg/dL (60-115); HDL Cholesterol 38 mg/dL (>40); LDL Cholesterol Calculated 78 mg/dL (<100); Potassium 3.5 mmol/L (3.3-5.1); Sodium 138 mmol/L (135-145); Total Protein 7.2 g/dL (6.5-8.0); Triglycerides 270 mg/dL (<150)
[2024-01-23 16:45] LABS: Reflex LDLD? No
[2024-01-23 16:58] LABS: TSH reflex Free T4 1.24 uIU/mL (0.32-4.0); Vitamin D 25-OH Total 24.1 ng/mL (>30)
[2024-01-24 11:59] LABS: HBS Num1 21.42 mIU/mL (0-7.99); Hepatitis A Antibody IgM 0.19 Index (0-0.79); Hepatitis B Core Antibody Nonreactive (Nonreactive); Hepatitis B Surface Antigen Negative (Negative); ~HepC Num1 0.08 S/CO (0.00-0.79); ~Hepatitis A Antibody IgM Nonreactive (Nonreactive); ~Hepatitis B Surface Antibody REACTIVE (Nonreactive); ~Hepatitis C Antibody Nonreactive (Nonreactive)
[2024-01-24 12:09] LABS: Syphilis Screen Nonreactive (Nonreactive)
[2024-01-26 06:07] LABS: TS Negative Control Passed; TS Panel A 0; TS Panel B 0; TS Positive Control Passed; TSpotTB Negative (Negative)
== END 2024-01-23 15:07 | disposition home or self-care (01) ==
LOC: HO.HHCL 15:06
PROVIDERS: Visit Provider Internal Medicine
DX: M79.10 Myalgia, unspecified site (principal); R53.83 Other fatigue; F25.0 Schizoaffective disorder, bipolar type; F17.210 Nicotine dependence, cigarettes, uncomplicated
CPT/HCPCS: 36415; 80053; 80061; 82306; 82550; 83036; 84443; 85025; 86481; 86704; 86706; 86709; 86780; 86803; 87340

== ENCOUNTER 2024-06-13 14:25 | Outpatient (REF) | payer MEDICAID, SELFPAY ==
--- NOTE | 2024-06-13 14:33 | PFT_ITS ---
Flows: FEV1: 95 % of predicted at 3.72 L FVC: 91 % of predicted at 4.20 L FEV1/FVC: 89 % Bronchodilator response: Absent Volumes: Total lung capacity: 87 % of predicted at 5.12 L Residual volume: 85 % of predicted at 1.07 L Slow vital capacity: 89 % of predicted at 4.05 L Expiratory reserve volume: 40 % of predicted at 0.54 L Diffusion capacity: Mildly decreased, corrects to normal after adjustment for alveolar ventilation. Impression: No obstructive or restrictive ventilatory defect. No bronchodilator response. Decreased expiratory reserve volume suggests extrathoracic restriction likely secondary to abdominal obesity. MTDD
[2024-06-13 15:08] VITALS: PULSE 89; O2SAT 96
--- OUTSIDE RECORDS SUMMARY | 2024-06-13 16:47 | XMS_ITS | Encounter Summary ---
Author Organization [employer] [facility] Address [address] [place] [address] [address] [place] [address] Care Team Providers Care Security Services Specialist Name Role Phone Rianna Allen NP Primary Care Provider + Payal Mai MD Primary Care Provider + Encounter Details Date Type Department Care Team (Late Contact Info) Description 12/08/2023 Telephone [facility] MEDICINE [address] [place] [phone] Rianna Allen NP [address] [place] [address] Social History Tobacco Use Types Packs/Day Years Used Date Smoking Tobacco: Never Assessed Sex and Gender Information Value Date Recorded Sex Assigned at Male 01/25/2022 10:39 AM EDT Legal Sex Male 10:39 AM EDT Gender Identity Male 01/25/2022 10:39 AM EDT Sexual Orientation Choose not to disclose 2021 10:39 AM EDT documented as of this encounter Plan of Treatment Upcoming Encounters Date Type Department Care Team (Late Contact Info) Description 07/17/2024 11:45 AM EDT Telemedicine [facility] MEDICINE [address] [place] [phone] Payal Mai MD [address] [place] [phone] documented as of this encounter Visit Diagnoses Not on filedocumented in this encounter Care Teams Security Services Specialist Relationship Specialty Start Date End Date Rianna Allen NP [address] [place] [phone] PCP - General Family Medicine 05/26/23 01/12/24 Payal Mai MD [address] [place] [phone] PCP - General Internal Medicine 01/13/24 documented as of this encounter
--- OUTSIDE RECORDS SUMMARY | 2024-06-13 16:47 | XMS_ITS | Clinical Summary ---
Author Organization [employer] Address [address] [facility] [address] [place] [address] Care Team Providers Care Paint Preparer Name Role Phone Payal Mai MD Primary Care Provider + Allergies No known active allergies Medications traZODone (Desyrel) 50 MG tablet TAKE 1 TABLET BY MOUTH BEDTIME NEEDED FOR INSOMNIA 12/03/19 22 Active risperiDONE (RisperDAL) 2 MG tablet PLEASE SEE ATTACHED FOR DETAILED DIRECTIONS 01/16/20 22 Active prazosin (Minipress) 1 MG capsule TAKE 1 CAPSULE BY MOUTH EVERYDAY AT BEDTIME 11/13/19 22 Active Invega Sustenna 234 MG/1.5ML suspension prefilled syringe INJECT 1.5 ML INTRAMUSCULARLY EVERY 30 DAYS NEXT DOSE ON 12/29/2021 01/05/20 22 Active docusate sodium (Colace) 100 MG capsule Take 100 mg by mouth 2 times daily. 11/13/19 22 Active hydrOXYzine HCl (Atarax) 25 MG tablet TAKE 1 TABLET ORALLY EVERY 6 HOURS NEEDED FOR ANXIETY 11/13/19 22 Active ARIPiprazole (Abilify) 10 MG tablet TAKE 1 TABLET BY MOUTH EVERY DAY FOR MOOD 06/16/19 23 Active buPROPion XL (Wellbutrin XL) 300 MG 24 hr tablet Take 300 mg by mouth in the morning. 06/16/19 23 Active Multiple Vitamin (multivitamin) capsule Take 1 capsule by mouth Once per day. 90 capsule 3 01/13/20 24 025 Active betamethasone valerate (Valisone) 0.1 % cream Apply topically if needed in the morning and at bedtime (dryness). 45 g 2 01/13/20 24 Active nicotine polacrilex (Nicorette) 4 MG gum Chew 1 each (4 mg) if needed for smoking cessation. 100 each 04/23/19 25 Active Active Problems Patient Care Coordination No te Formatting of this note migh t be different from the original. C3/CM Teri Reyes RN Problem Noted Date Diagnosed Date Sleep disturbance 04/23/2024 Witnessed apneic spells 04/23/2024 Myalgia 01/13/2024 Assessment & Plan (01/13/2024 10:12 AM EDT): Unclear if related to increased weight, antipsychotics, or trigger of DM and other medical conditions. Advised to slowly start exercise programs, start Tylenol prn. Order labs and follow up in 3 months. Cigarette nicotine dependence without complicati on 01/13/2024 Assessment & Plan (04/23/2024 8:00 PM EST): Seems to be most likely related to anxiety, I prescribed nicotine gum PRN. FU in 2-3 months. Continue to FU with Psychiatry for anxiety. Assessment & Plan (01/13/2024 10:12 AM EDT): Pt no ready for smoking cessation at this time. Will follow up prn, advised to start cutting down on tobacco. Seborrheic dermatitis 01/13/2024 Assessment & Plan (01/13/2024 10:15 AM EDT): Mainly on the face, start shampoo at night and Valisone during the day. Tiredness 01/13/2024 Assessment & Plan (01/13/2024 10:13 AM EDT): R/o chronic conditions, order labs, it can be related to neuroleptics. Advised regarding slight increase of activity at home, weight reduction, and follow up in 3 months. Dyspnea on exertion 01/13/2024 Assessment & Plan (04/23/2024 7:56 PM EST): Most likely related to overweight + smoking. Advised patient to increase exercise and cut down on cigarette smoking. FU PFT results. Assessment & Plan (01/13/2024 10:16 AM EDT): Unclear if related to medications, weight, or chronic diseases. R/o asthma other PFTs and Methacholine Test. Schizoaffective disorder 12/22/2020 Assessment & Plan (04/23/2024 7:58 PM EST): Patient is doing well on Invega injection. FU with [facility]. He will bring medication bottles next appointment. Assessment & Plan (01/13/2024 10:08 AM EDT): Currently with no AH and followed up by [facility]. Continue Invega + Risperidone, will monitor for side effects and consider adding medications to manage side effects. Pt feels safe at home and is able to reach out for safety. Will follow up next appointment regarding guardianship information. Encounters Date Type Department Care Team Description 06/08/2024 Population Health Risk Score [facility] (C3) Department [address] [place] [phone] Provider, Population Health Generic 04/23/2024 3:15 PM EST Office Visit [facility] [address] [place] [phone] Payal Mai MD Dyspnea on exertion (Primary Dx); Schizoaffective disorder, bipolar type (CMS/HCC); Cigarette nicotine dependence without complication; Sleep disturbance; Witnessed apneic spells 04/23/2024 Travel 04/20/2024 Telephone [facility] [address] [place] [phone] Lora Proctor MA Chart prep 04/11/2024 Patient Outreach [facility] [address] [place] [address] Payal Mai MD Pre-visit Planning (SDOH screening negative and tobacco screening positive) from Last 3 Months Immunizations Name Administration Dates Next Due Influenza injectable quadrivalent preservative f ree 12/18/2021 Influenza, seasonal, injectable, preservative fr ee 01/13/2024 Social History Tobacco Use Types Packs/Day Years Used Date Smoking Tobacco: Never Smokeless Tobacco: Never Tobacco Cessation:Counseling Given: Not Answered Alcohol Use Standard Drinks/Week Comments Never 0 (1 standard drink = 0.6 oz pur e alcohol) Housing Stability Answer Date Recorded What is your housing situation today? I have carley agustin 04/11/[address] you li ve. Do you have problems with any of the following? None of the above 04/11/2024 Food Insecurity Answer Date Recorded Within the past 12 months, y ou worried that your food would run out before you got money to buy more: Never True 01/05/2024 Within the past 12 months,th e food you bought just didn't last and you didn't have enough money to get more: Never True 12/2023 Transportation Answer Date Recorded In the past 12 months, has l ack of transportation kept you from medical appts, meetings, work or from getting things needed for daily living? No 04/11/2024 Utilities Answer Date Recorded In the past 12 months, has t he electric, gas, oil or water company threatened to shut off services in your home? No 01/05/2024 Internet Access Answer Date Recorded Internet Access Q1 Yes 01/05/2024 Internet Access Q2 Not on file 01/05/2024 Sex and Gender Information Value Date Recorded Sex Assigned at Male 01/25/2022 10:39 AM EDT Legal Sex Male 10:39 AM EDT Gender Identity Male 01/25/2022 10:39 AM EDT Sexual Orientation Choose not to disclose 2021 10:39 AM EDT Last Filed Vital Signs Vital Sign Reading Time Taken Comments Blood Pressure 118/75 04/23/2024 3:21 PM EST Pulse 86 04/23/2024 3:21 PM EST Temperature 36 ??C (96.8 ??F) 04/23/2024 3:21 PM EST Respiratory Rate 20 04/23/2024 3:21 PM EST Oxygen Saturation 96% 04/23/2024 3:21 PM EST Inhaled Oxygen Concentration - - Weight 75.4 kg (166 lb 2 oz) 04/23/2024 3:21 PM EST Height 164.7 cm (5' 4.84 ) 04/23/2024 3:21 PM ES T Body Mass Index 27.78 04/23/2024 3:21 PM EST Plan of Treatment Upcoming Encounters Date Type Department Care Team (Late st Contact Info) Description 07/17/2024 11:45 AM EDT Telemedicine [facility] [address] [place] [address] Payal Mai MD [address] [place] [address] Health Maintenance Due Date Last Done Comments Depression Screening 1999 Alcohol/Substance Use Screening 2011 Family Planning (PISQ) 07/28/2014 HPV Vaccines (1 - Male 3-dos e series) 07/28/2014 DTaP/Tdap/Td Vaccines (1 - Tdap) 07/28/2018 Hepatitis B Vaccines (1 of 3 - 19+ 3-dose series) 07/28/2018 COVID-19 Vaccine (3 - 2023-2 5 season) 2023 01/13/2021, 12/22/2020 SDOH Screening 04/11/2025 04/11/2024 Tobacco Screening 04/23/2025 04/23/2024 Zoster Vaccines (1 of 2) 07/28/2049 RSV Patients and Patients Aged 60 years or older (1 - 1-dose 75+ series) 07/28/2074 HIV Screening Completed 01/25/2022 Influenza Vaccine Completed 01/13/2024, 12/18/2021 Hepatitis C Screening Completed 01/23/2024 , 01/25/2022 HIB Vaccines Aged Out No longer eligi ble based on patient's age to complete this topic Hepatitis A Vaccines Aged Out No long er eligible based on patient's age to complete this topic IPV Vaccines Aged Out No longer eligi ble based on patient's age to complete this topic Meningococcal Vaccine Aged Out No osito jaron eligible based on patient's age to complete this topic Pneumococcal Vaccine: Pediatrics (0 to 5 Years) and At-Risk Patients (6 to 49) Years) Aged Out No longer eligible b ased on patient's age to complete this topic RSV under 20 months Aged Out No longe r eligible based on patient's age to complete this topic Rotavirus Vaccines Aged Out No longer eligible based on patient's age to complete this topic Procedures Procedure Name Priority Date/Time Associated Diagnosis Comments HEPATITIS PANEL, GENERAL Routine 01/23/2024 3:15 PM EDT Myalgia Tiredness HIV 1/2 ANTIGEN/ANTIBODY, FOURTH GENERATION W/RFL Routine 01/25/2022 9:06 AM EDT from Last 3 Months or Most Recently Relevant to Health Maintenance Results * Hepatitis Panel, General (01/23/2024 3:15 PM EDT) Hepatitis A IgM Nonreactive Nonreactive [facility] Comment:IgM antibodies to ROGERS V not detected; does not exclude earlyacute or recovered HAV infection. ~Hepatitis B Surface Antibody REACTIVE Nonreactive [facility] Comment:REACTIVE: > 11.99 mI U/mL Hepatitis B Core Antibody Nonreactive Nonreactive [facility] Hepatitis C Antibody Nonreactive Nonreactive [facility] Comment:Antibodies to HCV no t detected; does not exclude early acuteHCV infection. Hepatitis B Surface Ag Negative Negative [facility] Blood 01/23/2024 3:15 PM EDT 01/23/2024 4:05 PM EDT Payal Mai MD LAB BLOOD ORDERABLES Fin al Result [facility] [address] [place] [phone] * HIV 1/2 ANTIGEN/ANTIBODY,FOURTH GENERATION W/RFL (01/25/2022 9:06 AM EDT) HIV-1/2 ANTIGEN AND ANTIBODIES, 4TH GENERATION W/ REFLEX NON-REACT STEVE NON-REACT STEVE [facility] Comment: HIV-1 antigen and HIV-1/HIV-2 antibodies were not detected. There is no laboratory evidence of HIV infection. ?? PLEASE NOTE: This information has been disclosed to you from records whose confidentiality may be protected by state law. ??If your state requires such protection, then the state law prohibits you from making any further disclosure of the information without the specific written consent of the person to whom it pertains, or as otherwise permitted by law. A general authorization for the release of medical or other information is NOT sufficient for this purpose. ? For additional information please refer to http://education.NodeFly/faq/UFN530 (This link is being provided for informational/ educational purposes only.) ? The performance of this assay has not been clinically validated in patients less than 2 years old. ?? 01/25/2022 9:06 AM EDT Sydnee Perez PAYROLL ADMINISTRATOR LAB BLOOD ORDERABLES Final Res ult [facility] from Last 3 Months or Most Recently Relevant to Health Maintenance Insurance [address] [place], [place] [address] [facility] Care Teams Paint Preparer Relationship Specialty Start Date End Date Payal Mai MD [address] [place] [phone] PCP - General Internal Medicine 01/13/24
--- OUTSIDE RECORDS SUMMARY | 2024-06-13 16:47 | XMS_ITS | Encounter Summary ---
Author Organization [employer] Address [address] [facility] [address] [place] [address] Care Team Providers Care Soil Fertility Extension Specialist Name Role Phone Payal Mai MD Primary Care Provider + Encounter Details Date Type Department Care Team ([facility] st Contact Info) Description 06/08/2024 Population Health Risk Score [facility] ([facility]) Department [address] [phone] Provider, Population Health Generic Social History Tobacco Use Types Packs/Day Years Used Date Smoking Tobacco: Never Smokeless Tobacco: Never Alcohol Use Standard Drinks/Week Comments Never 0 (1 standard drink = 0.6 oz pur e alcohol) Housing Stability Answer Date Recorded What is your housing situation today? I have carley vamsi 04/11/[address] you li [...] Info) Description 07/17/2024 11:[address] [facility] [address] [place] [address] Payal Mai MD [address] [place] [address] documented as of this encounter Visit Diagnoses Not on filedocumented in this encounter Care Teams Soil Fertility Extension Specialist Relationship Specialty Start Date End Date Payal Mai MD [address] [place] [phone] PCP - General Internal Medicine 01/13/24 documented as of this encounter
== END 2024-06-13 14:26 | disposition home or self-care (01) ==
LOC: HO.RESP 14:25
PROVIDERS: PCP Internal Medicine; Visit Provider Internal Medicine
DX: R06.00 Dyspnea, unspecified (principal)
CPT/HCPCS: 94010; 94640; 94727; 94729

== ENCOUNTER → 2024-06-13 14:33 | Outpatient (BNV) | payer MEDICAID, SELFPAY | PROVIDERS: PCP Internal Medicine; Visit Provider Internal Medicine Pulmonary Disease | DX: R06.00 Dyspnea, unspecified (principal) | CPT/HCPCS: 94060; 94727; 94729 ==

== ENCOUNTER → 2024-06-13 20:30 | Outpatient (REF) | payer MEDICAID, SELFPAY | LOC: HO.SL 20:30 | PROVIDERS: PCP Internal Medicine; Visit Provider Internal Medicine | DX: Z13.89 Encounter for screening for other disorder (principal) ==